=== PATIENT | female | born 1955 | race American Indian/Alaskan Native ===

== ENCOUNTER 2020-01-06 14:54 | Emergency (ER) | payer MEDICARE ==
[2020-01-06 17:06] VITALS: BP 134/72
--- NOTE | 2020-01-06 17:10 | Emergency Department Report ---
Chief Complaint: Neck Pain/Injury Stated Complaint: NECK PAIN Time Seen by Provider: 01/06/20 16:28 - HPI History of Present Illness: 64-year-old -Danish female presents to the emergency room complaining of neck pain that radiates down her back into her legs. Patient states is been going on for several months and has been seen by her doctor. Patient states that she is taking Percocet from her doctor which is at [place]. She reports that the pain is not resolving with just a Percocet. Patient reports that she is waiting on her MRI that is pending scheduling. Patient denies any recent trauma. She denies any blurred vision blacking out. - Exam Vital Signs: Vital Signs 01/06/20 17:05 Temperature 98.6 F Pulse Rate 63 Respiratory 18 Rate Blood Pressure 134/72 [134/72] O2 Sat by Pulse 99 Oximetry Physical Exam: Alert and oriented x3 no acute distress nontoxic in appearance Neck full range of motion cervical tenderness and bilateral trapeze tenderness. Patient is ambulatory without difficulties nonlabored breathing she does use a cane which is chronic for her. MSE screening note: Focused history and physical exam performed. Due to findings the following was ordered: 64-year-old -Danish female presents to the emergency room complaining of neck pain that radiates down her back into her legs. Patient states is been going on for several months and has been seen by her doctor. Patient states that she is taking Percocet from her doctor which is at [place]. She reports that the pain is not resolving with just a Percocet. Patient reports that she is waiting on her MRI that is pending scheduling. Patient denies any recent trauma. She denies any blurred vision blacking out. ED Disposition for MSE Disposition: Z-07 MED SCREENING EXAM-LEFT Is pt being admited?: No Does the pt Need Aspirin: No Condition: Stable Additional Instructions: I recommend taking ibuprofen 2 hours after your Percocet you can take 600 mg every 6-8 hours. I also recommend [id number] Aspercreme or Voltaren gel. Both of these medications are [id number] just asked the pharmacist to help you locate them. Call your primary care doctor in the morning to let them know you are still waiting for your MRI. 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 Referrals: [facility] [Outside] - 3-5 Days
== END 2020-01-06 17:17 | disposition left against medical advice (07) ==
LOC: ED 14:54
DX: M54.2 Cervicalgia (principal); Z53.21 Procedure and treatment not carried out due to patient leaving prior to being seen by health care provider

== ENCOUNTER 2020-08-13 01:37 | Emergency (ER) | payer MEDICARE ==
[2020-08-13] MEDS ORDERED: DEXTROSE 50% IN WATER (25GM) 50 ML SYRINGE IV ONE ×2 (01:46→01:48)
[2020-08-13 01:57] LABS: Basophils # (Auto) 0.1 K/mm3 (0.0-0.1); Eosinophils # (Auto) 0.1 K/mm3 (0.0-0.4); Eosinophils % (Auto) 1.9 % (0.0-4.3); Hematocrit 35.4 % (30.3-42.9); Hemoglobin 11.8 gm/dl (10.1-14.3); Lymphocytes # (Auto) 2.2 K/mm3 (1.2-5.4); Lymphocytes % (Auto) 36.7 % (13.4-35.0); Mean Corpuscular HGB Conc 33 % (30-34); Mean Corpuscular Volume 71 fl (79-97); Monocytes # (Auto) 0.4 K/mm3 (0.0-0.8); Monocytes % (Auto) 6.3 % (0.0-7.3); Platelet Count 319 K/mm3 (140-440); Red Blood Count 5.02 M/mm3 (3.65-5.03); Red Cell Distribution Width 13.9 % (13.2-15.2)
--- NOTE | 2020-08-13 01:59 | Consultation ---
Medications and Allergies Active Meds: Active Medications Dextrose (Dextrose 50% In Water (25gm) 50 Ml Vial) 50 gm IV ONCE ONE; Protocol Stop: 08/13/20 01:47 Assessment and Plan [facility] Consult Note # Demographics Consult Type: Acute Stroke Level 1 (0-4.5 hrs) Patient Location: Emergency Room First Name: Ekaterina Last Name: Bob Date of : 1955 Age: 64 Gender: Female Time of Initial Page (): 08/13/2020, 01:48 Time of Return Call ( Time): 08/13/2020, 01:49 # HPI History: 64F with stuttering speech, private vehicle. Patient unable to provide history. Patient reports some headache. The patient's mother came in earlier today in cardiac arrest and , patient aware her mother is ill. Unable to determine last well time from patient. Per ED MD, family reports patient had onset of symptoms at that time, which was 01:15. # Scores Time of exam and NIHSS (): 08/13/2020, 01:52 Level of Consciousness 1a: [0] = Alert; keenly responsive LOC Questions 1b: [2] = Answers neither correctly LOC Commands 1c: [0] = Performs both tasks correctly Best Gaze 2: [0] = Normal Visual 3: [0] = No visual loss Facial Palsy 4: [0] = Normal symmetrical movements Motor Arm Left 5a: [0] = No drift Motor Arm Right 5b: [0] = No drift Motor Leg Left 6a: [0] = No drift Motor Leg Right 6b: [0] = No drift Limb Ataxia 7: [0] = Absent Sensory 8: [0] = Normal Best Language 9: [0] = No aphasia Dysarthria 10: [0] = Normal Extinction and Inattention 11: [0] = No abnormality NIHSS Total: 2 # Exam Additional Neurologic Exam: Examination difficult due to stuttering, hesitating speech. # Data Time Head CT personally read by me (): 08/13/2020, 01:[address]: no bleed preliminarily reviewed by me, please refer to radiology read for official reading # Assessment Impression: Altered Mental Status The patient's examination is atypical for stroke, more typical of a psychiatric presentation which may have been provoked by her mother's sudden illness. With available data, risk > benefit for IV tPA as best I can determine. # Plan Thrombolytic/Intervention: NOT IV Thrombolytic or IA Intervention Thrombolytic Exclusion: risk > benefit Intraarterial Exclusion: pending CTA head/neck. Imaging: (urgency: STAT): CT Angiogram Head and CT Angiogram Neck Other: I have discussed my recommendations with the referring provider Additional Recommendations: If not improving, consider MRI brain. Disposition: observation # Logistics Telemedicine: Interactive 2 way audio and visual telecommunication technology was utilized during this visit
[2020-08-13 02:10] LABS: INR 0.82 (0.87-1.13)
[2020-08-13 02:11] LABS: Partial Thromboplastin Time 23.6 Sec. (24.2-36.6)
--- NOTE | 2020-08-13 02:14 | Cat Scan Report ---
CT HEAD WITHOUT CONTRAST INDICATION / CLINICAL INFORMATION: Stroke symptoms. TECHNIQUE: All CT scans at this location are performed using CT dose reduction for ALARA by means of automated e xposure control. COMPARISON: None available. FINDINGS: There is no acute intracranial hemorrhage. Ventricles are normal in size without midline shift or mas s effect. No extra-axial fluid collection is seen. Visualized sella appears normal. Orbits appear nor mal. ADDITIONAL FINDINGS: None. IMPRESSION: 1. No acute intracranial abnormality. Calcified vessels are seen posteriorly at junction and cerebell um brainstem CODE STROKE: Time of Communication (MANAGER ECONOMIC/CDT): 107 Licensed Practitioner Receiving Report: Dr Bland Signer Name: Mulugeta Roibn MD Signed: 08/13/2020 2:10 AM Workstation Name: [id number]
[2020-08-13 02:20] LABS: Creatine Kinase MB 2.2 ng/mL (0.0-4.0)
--- NOTE | 2020-08-13 02:29 | XRay Report ---
CHEST 1 VIEW 08/13/2020 1:22 AM INDICATION / CLINICAL INFORMATION: cva. COMPARISON: None available. FINDINGS: SUPPORT DEVICES: None. HEART / MEDIASTINUM: No significant abnormality. LUNGS / PLEURA: No significant pulmonary or pleural abnormality. No pneumothorax. ADDITIONAL FINDINGS: No significant additional findings. IMPRESSION: 1. No acute findings. Signer Name: Mulugeta Robin MD Signed: 08/13/2020 2:25 AM Workstation Name: [id number]
[2020-08-13 03:19] LABS: Blood Urea Nitrogen 7 mg/dL (7-17)
[2020-08-13 03:47] LABS: Blood Urea Nitrogen 7 mg/dL (7-17); Calcium 9.7 mg/dL (8.4-10.2); Hemolysis Index 2
[2020-08-13 03:57] LABS: BUN/Creatinine Ratio 14
--- NOTE | 2020-08-13 04:25 | Cat Scan Report ---
CTA NECK WITH CONTRAST HISTORY: "Stroke like symptoms" COMPARISON: None. TECHNIQUE: Routine CTA of the neck was performed. 3-D/MIP reformats were postprocessed. Percentage s tenosis is determined by direct quantitative measurements of diseased internal carotid artery diamete r compared with normal distal internal carotid artery reference segments or by criteria similar to NA SCET where applicable.All CT scans at this location are performed using CT dose reduction for ALARA b y means of automated exposure control CONTRAST: 100 ml of Omnipaque 350 FINDINGS: Aortic arch: No significant abnormality. Cervical vertebral arteries: No significant abnormality. Common carotid arteries: No significant abnormality. Carotid bifurcations: Normal bilaterally Cervical internal carotid arteries: No significant abnormality. Additional findings: None. IMPRESSION: 1. No significant abnormality. Signer Name: Cee Arrington MD Signed: 08/13/2020 4:21 AM Workstation Name: [id number]
--- NOTE | 2020-08-13 04:26 | Emergency Department Report ---
ED Neuro Deficit HPI - General Stated Complaint: POSSIBLE STROKE/DIABETIC Time Seen by Provider: 08/13/20 01:39 Source: patient, family - History of Present Illness Initial Comments: Patient presents to ER with slurred speech about 45 mns ago after mother went into cardiac arrest. Mother has since and family doesn't want patient to know. Patient c/o slurred speech, no focal weakness. No chest pain and sob, code S was called upon presentation to ER and Neurologist evaluated patient via TeleHealth. Time of exam and NIHSS (Eastern Time): 08/13/2020, 01:52 Level of Consciousness 1a: [0] = Alert; keenly responsive LOC Questions 1b: [2] = Answers neither correctly LOC Commands 1c: [0] = Performs both tasks correctly Best Gaze 2: [0] = Normal Visual 3: [0] = No visual loss Facial Palsy 4: [0] = Normal symmetrical movements Motor Arm Left 5a: [0] = No drift Motor Arm Right 5b: [0] = No drift Motor Leg Left 6a: [0] = No drift Motor Leg Right 6b: [0] = No drift Limb Ataxia 7: [0] = Absent Sensory 8: [0] = Normal Best Language 9: [0] = No aphasia Dysarthria 10: [0] = Normal Extinction and Inattention 11: [0] = No abnormality NIHSS Total: 2 -: Gradual - Related Data Allergies/Adverse Reactions: Allergies Allergy/AdvReac Type Severity Reaction Status Date / Time Unable to Assess Allergy Unverified 08/13/20 03:10 ED Review of Systems ROS: Stated complaint: POSSIBLE STROKE/DIABETIC Other details as noted in HPI Comment: All other systems reviewed and negative Constitutional: denies: chills, fever Eyes: denies: eye pain, eye discharge, vision change ENT: denies: throat pain Respiratory: denies: no symptoms reported Cardiovascular: denies: chest pain, palpitations Endocrine: no symptoms reported Gastrointestinal: denies: abdominal pain, nausea, diarrhea Genitourinary: denies: urgency, dysuria, discharge Musculoskeletal: denies: back pain, joint swelling, arthralgia Skin: denies: rash, lesions Neurological: weakness. denies: headache, paresthesias Psychiatric: anxiety. denies: depression Hematological/Lymphatic: denies: easy bleeding, easy bruising ED Past Medical Hx - Family History Family history: hypertension ED Neuro Physical Exam - General General appearance: alert, in no apparent distress Suspected Stroke: Yes - Head Head exam: Present: atraumatic, normocephalic - Eye Eye exam: Present: normal appearance - ENT ENT exam: Present: mucous membranes moist - Neck Neck exam: Present: normal inspection - Respiratory Respiratory exam: Present: normal lung sounds bilaterally. Absent: respiratory distress - Cardiovascular Cardiovascular Exam: Present: regular rate, normal rhythm. Absent: systolic murmur, diastolic murmur, rubs, gallop - GI/Abdominal GI/Abdominal exam: Present: soft, normal bowel sounds - Extremities Exam Extremities exam: Present: normal inspection - Back Exam Back exam: Present: normal inspection - Neurological Exam Neurological exam: Present: alert, oriented X3 - NIHSS Assessment Interval: Baseline 1a. Level of Consciousness: alert/keenly responsive 1b. LOC Questions: answers no questions correctly 1c. LOC Commands: performs tasks correctly 2. Best Gaze: normal 3. Visual: no visual loss 4. Facial Palsy: normal symmetrical movement 5b. Motor Arm Right: no drift 5a. Motor Arm Left: no drift 6a. Motor Leg Left: no drift 6b. Motor Leg Right: no drift 7. Limb Ataxia: absent 8. Sensory: normal 9. Best Language: no aphasia 10. Dysarthria: normal 11. Extinction/Inattention: no abnormality Total Score: 2 Stroke Severity: Minor Stroke - Psychiatric Psychiatric exam: Present: normal affect, normal mood - Skin Skin exam: Present: warm, dry, intact, normal color. Absent: rash - Lab Data Result diagrams: 08/13/20 01:45 08/13/20 01:45 Lab Results 08/13/20 08/13/20 08/13/20 Range/Units 01:45 01:45 01:45 WBC 5.9 (4.5-11.0) K/mm3 RBC 5.02 (3.65-5.03) M/mm3 Hgb 11.8 (10.1-14.3) gm/dl Hct 35.4 (30.3-42.9) % MCV 71 L (79-97) fl MCH 24 L (28-32) pg MCHC 33 (30-34) % RDW 13.9 (13.2-15.2) % Plt Count 319 (140-440) K/mm3 Lymph % (Auto) 36.7 H (13.4-35.0) % Moore % (Auto) 6.3 (0.0-7.3) % Eos % (Auto) 1.9 (0.0-4.3) % Baso % (Auto) 1.0 (0.0-1.8) % Lymph # (Auto) 2.2 (1.2-5.4) K/mm3 Moore # (Auto) 0.4 (0.0-0.8) K/mm3 Eos # (Auto) 0.1 (0.0-0.4) K/mm3 Baso # (Auto) 0.1 (0.0-0.1) K/mm3 Seg Neutrophils % 54.1 (40.0-70.0) % Seg Neutrophils # 3.2 (1.8-7.7) K/mm3 PT 11.8 L (12.2-14.9) Sec. INR 0.82 L (0.87-1.13) APTT 23.6 L (24.2-36.6) Sec. Thrombin Time 19.0 (15.1-19.6) Sec. Sodium (137-145) mmol/L Potassium (3.6-5.0) mmol/L Chloride (98-107) mmol/L Carbon Dioxide (22-30) mmol/L Anion Gap mmol/L BUN (7-17) mg/dL Creatinine (0.6-1.2) mg/dL Estimated GFR ml/min BUN/Creatinine Ratio % Glucose (65-100) mg/dL Calcium (8.4-10.2) mg/dL Total Creatine Kinase 137 H (30-135) units/L CK-MB (CK-2) 2.2 (0.0-4.0) ng/mL CK-MB (CK-2) Rel Index 1.6 (0-4) Troponin T < 0.010 (0.00-0.029) ng/mL Plasma/Serum Alcohol (0-0.07) % 08/13/20 08/13/20 08/13/20 Range/Units 01:45 01:45 01:45 WBC (4.5-11.0) K/mm3 RBC (3.65-5.03) M/mm3 Hgb (10.1-14.3) gm/dl Hct (30.3-42.9) % MCV (79-97) fl MCH (28-32) pg MCHC (30-34) % RDW (13.2-15.2) % Plt Count (140-440) K/mm3 Lymph % (Auto) (13.4-35.0) % Moore % (Auto) (0.0-7.3) % Eos % (Auto) (0.0-4.3) % Baso % (Auto) (0.0-1.8) % Lymph # (Auto) (1.2-5.4) K/mm3 Moore # (Auto) (0.0-0.8) K/mm3 Eos # (Auto) (0.0-0.4) K/mm3 Baso # (Auto) (0.0-0.1) K/mm3 Seg Neutrophils % (40.0-70.0) % Seg Neutrophils # (1.8-7.7) K/mm3 PT (12.2-14.9) Sec. INR (0.87-1.13) APTT (24.2-36.6) Sec. Thrombin Time (15.1-19.6) Sec. Sodium 136 L (137-145) mmol/L Potassium 3.7 (3.6-5.0) mmol/L Chloride 97.7 L (98-107) mmol/L Carbon Dioxide 24 (22-30) mmol/L Anion Gap 18 mmol/L BUN 7 7 (7-17) mg/dL Creatinine 0.5 L 0.5 L (0.6-1.2) mg/dL Estimated GFR > 60 > 60 ml/min BUN/Creatinine Ratio 14 % Glucose 268 H (65-100) mg/dL Calcium 9.7 (8.4-10.2) mg/dL Total Creatine Kinase (30-135) units/L CK-MB (CK-2) (0.0-4.0) ng/mL CK-MB (CK-2) Rel Index (0-4) Troponin T (0.00-0.029) ng/mL Plasma/Serum Alcohol < 0.01 (0-0.07) % - Medical Decision Making back to baseline, wants to go home, I recommended admission but patient refused, states she feels fine wants to go home. states episodes were due to mother's illness. Critical care attestation.: If time is entered above; I have spent that time in minutes in the direct care of this critically ill patient, excluding procedure time. ED Disposition Clinical Impression: Stress and adjustment reaction Disposition: DC-01 TO HOME OR SELFCARE Is pt being admited?: No Does the pt Need Aspirin: No Condition: Stable Instructions: Adjustment Disorder, Adult Referrals: RACHEAL IVY MD [Primary Care Provider] - 3-5 Days
--- NOTE | 2020-08-13 04:33 | Cat Scan Report ---
CTA HEAD WITH CONTRAST HISTORY: Slurred speech COMPARISON: None. TECHNIQUE: Routine non-contrast CT Head, CTA of the head and post-contrast CT Head are performed. 3-D /MIP reformats postprocessed. All CT scans at this location are performed using CT dose reduction for ALARA by means of automated exposure control CONTRAST: 100 ml of Omnipaque 350 FINDINGS: CTA Head: Intracranial vertebral arteries: No significant abnormality. Basilar artery: No significant abnormality. Posterior cerebral arteries: No significant abnormality. Intracranial internal carotid arteries: No significant abnormality. Anterior cerebral arteries: No significant abnormality. Middle cerebral arteries: No significant abnormality. Dural venous sinuses:Not optimally opacified. No significant abnormality. Additional findings: Small subcentimeter nodular area seen in both parotid glands probably intraparot id lymph nodes IMPRESSION: 1. No significant abnormality. Signer Name: Cee Arrington MD Signed: 08/13/2020 4:28 AM Workstation Name: [id number]
[2020-08-13] MEDS ORDERED: ASPIRIN 325 MG TAB PO SCH (10:00)
== END 2020-08-13 04:59 | disposition home or self-care (01) ==
LOC: ED 01:37
DX: F43.20 Adjustment disorder, unspecified (principal)
CPT/HCPCS: 36415; 70450; 70496; 70498; 71045; 80048; 82550; 82553; 82565; 84484; 84520; 85025; 85610; 85670; 85730; 99284; Q9967; 80320; G0480

== ENCOUNTER 2020-11-25 13:11 | Inpatient (IN) | payer MEDICARE ==
[2020-11-25] MEDS ORDERED: ASPIRIN 325 MG TAB PO ONE (13:54)
[2020-11-25] MEDS ORDERED: SODIUM CHLORIDE 0.9% 1000 ML 1,000 ML IV ONE (13:54)
--- NOTE | 2020-11-25 13:55 | Emergency Department Report ---
ED Chest Pain HPI - General Chief Complaint: Chest Pain Stated Complaint: CHEST PAIN Time Seen by Provider: 11/25/20 13:43 Source: patient Mode of arrival: Ambulatory Limitations: No Limitations - History of Present Illness Initial Comments: 65-year-old female with a past medical history of rheumatoid arthritis, hypertension, hyperlipidemia, diabetes and fibromyalgia with complaints of left- sided chest pain. Patient states her symptoms started 3 to 4 days ago. She describes a sharp intermittent pain which starts in her left side of her chest and radiates into her substernal area. She states that the pain was tolerable over the past 3 to 4 days, but today while she was walking at [facility] it got worse. She denies any associated shortness of breath, diaphoresis, nausea or vomiting. She denies pleuritic pain. She states that she had a chronic cough for several years, and it has not gotten worse recently. She has chronic lower extremity swelling secondary to her rheumatoid arthritis, but denies any worsening swelling recently or any calf pain. She denies any fever, chills or URI symptoms. Patient states that she has never had a stress test in the past. She has never had a heart cath. Patient admits that she recently lost her mom about 3 months ago secondary to an NE and she has been under lots of stress and anxiety since. She also reports that her brother who is 55 has had multiple heart attacks in the past. She denies any history of PE or DVT. She denies history of tobacco use or any illicit drug use. She denies any apparent ill contacts. MD Complaint: chest pain -: Gradual, days(s) (3-4) - Related Data Home Medications Medication Instructions Recorded Confirmed Last Taken HumaLOG 70 units SQ DAILY 11/25/20 11/25/20 Unknown Lisinopril [Zestril TAB] 20 mg PO DAILY 11/25/20 11/25/20 11/24/20 19:00 Allergies Allergy/AdvReac Type Severity Reaction Status Date / Time No Known Allergies Allergy Verified 11/25/20 13:39 Heart Score - HEART Score History: Moderately suspicious EKG: Normal Age: 45-65 Risk factors: > 3 risk factors or hx of atherosclerotic disease Troponin: < normal limit HEART Score: 4 - EKG Read Time Time EKG Completed: 13:19 EKG Read Time: 13:20 ED Review of Systems ROS: Stated complaint: CHEST PAIN Other details as noted in HPI Comment: All other systems reviewed and negative Constitutional: denies: chills, fever Respiratory: cough (Chronic). denies: shortness of breath, SOB with exertion, SOB at rest, wheezing Cardiovascular: chest pain. denies: dyspnea on exertion, paroxysmal nocturnal dyspnea Gastrointestinal: denies: abdominal pain, nausea, vomiting, diarrhea, constipation, hematemesis, melena, hematochezia Genitourinary: denies: urgency, dysuria, discharge Musculoskeletal: denies: back pain, joint swelling, arthralgia Skin: denies: rash, lesions, change in color, change in hair/nails, pruritus Neurological: denies: headache, weakness, numbness, paresthesias, confusion Psychiatric: denies: anxiety, depression, auditory hallucinations, visual hallucinations, homicidal thoughts, suicidal thoughts Hematological/Lymphatic: denies: easy bruising, swollen glands ED Past Medical Hx - Past Medical History Previous Medical History?: No Hx Hypertension: Yes Hx Diabetes: Yes - Surgical History Past Surgical History?: No - Medications Home Medications: Home Medications Medication Instructions Recorded Confirmed Last Taken Type HumaLOG 70 units SQ DAILY 11/25/20 11/25/20 Unknown History Lisinopril [Zestril TAB] 20 mg PO DAILY 11/25/20 11/25/20 11/24/20 19:00 History ED Physical Exam - General Limitations: No Limitations General appearance: alert, anxious - Eye Eye exam: Present: normal appearance, PERRL, EOMI Pupils: Present: normal accommodation - Neck Neck exam: Present: normal inspection, full ROM. Absent: meningismus - Respiratory Respiratory exam: Present: normal lung sounds bilaterally. Absent: respiratory distress, wheezes, rales, rhonchi, chest wall tenderness - Cardiovascular Cardiovascular Exam: Present: regular rate, normal rhythm, normal heart sounds - GI/Abdominal GI/Abdominal exam: Present: soft. Absent: distended, tenderness, guarding, rebound - Extremities Exam Extremities exam: Present: normal inspection, full ROM. Absent: normal capillary refill, pedal edema, calf tenderness - Neurological Exam Neurological exam: Present: alert, oriented X3, CN II-XII intact, normal gait - Psychiatric Psychiatric exam: Present: normal affect, normal mood - Skin Skin exam: Present: intact ED Course Vital Signs 11/25/20 11/25/20 11/25/20 13:40 14:26 14:30 Temperature 100.7 F H Pulse Rate 86 90 96 H Respiratory 16 Rate Blood Pressure 147/78 Blood Pressure 126/86 [Left] O2 Sat by Pulse 96 85 97 Oximetry 11/25/20 11/25/20 11/25/20 14:46 15:00 15:16 Temperature Pulse Rate 83 86 89 Respiratory Rate Blood Pressure 147/78 151/81 151/81 Blood Pressure [Left] O2 Sat by Pulse 99 100 97 Oximetry 11/25/20 11/25/20 11/25/20 15:30 15:46 16:00 Temperature Pulse Rate 85 92 H Respiratory Rate Blood Pressure 151/77 151/77 158/86 Blood Pressure [Left] O2 Sat by Pulse 88 84 Oximetry 11/25/20 11/25/20 11/25/20 16:16 16:26 16:29 Temperature 101.9 F H 100.2 F H Pulse Rate 102 H 85 86 Respiratory 16 16 Rate Blood Pressure 158/86 157/77 Blood Pressure 157/77 [Left] O2 Sat by Pulse 86 92 Oximetry 11/25/20 16:30 Temperature Pulse Rate 80 Respiratory Rate Blood Pressure 157/77 Blood Pressure [Left] O2 Sat by Pulse 93 Oximetry ED Medical Decision Making - Lab Data Result diagrams: 11/25/20 14:42 11/25/20 14:42 - EKG Data EKG shows normal: sinus rhythm Rate: normal (94) - EKG Data Interpretation: normal EKG - Radiology Data Radiology results: report reviewed Patient: LUIS CARLOS LOREDO MR#: [id number] : 1955 Acct:[id number] Age/Sex: 65 / F ADM Date: 11/25/20 Loc: ED Attending Dr: Ordering Physician: KB BARTH Date of Service: 11/25/20 Procedure(s): XR chest routine 2V Accession Number(s): [id number] cc: KB BARTH Fluoro Time In Minutes: CHEST 2 VIEWS INDICATION: Chest Pain. COMPARISON: 08/13/2020 FINDINGS: Support devices: None. Heart: Within normal limits. Lungs/pleura: No acute air space or interstitial disease. No pneumothorax. Additional findings: None. IMPRESSION: No acute findings. Signer Name: Taj Bell Jr, MD Signed: 11/25/2020 2:15 PM Workstation Name: [id number] Transcribed By: TTR Dictated By: TAJ BELL JR, MD Electronically Authenticated By: TAJ BELL JR, MD Signed Date/Time: 11/25/201414 DD/ 13 TD/TT: - Medical Decision Making 1624: Patient currently laying in the bed, and she states that she still having intermittent chest pain. She is not currently in any distress. All her labs were reviewed, initial troponin was negative, EKG shows normal sinus rhythm with a heart rate of 94, without any acute ischemic changes/STEMI or significant dysrhythmia. Chest x-ray shows nothing acute. Patient vital signs shows that she is febrile, and oxygen on room air at rest now is in the low 90s. Tylenol p.o. was ordered for the patient. Patient reports a chronic cough for several years, nothing worse and she has not had any wheezing or shortness of breath. Patient could have Covid, but given her risk factors for heart disease and she has never had a stress test, patient will likely need admission. Discussed case with Dr. Alexis who also evaluated the patient, and given patient risk factors including family history factors and symptomology, I agree that patient will need to be admitted for further cardiac work-up. Case discussed with Dr. Currie for admission. 1745: Discussed case with student consulting systems engineer, Dr Echeverria, he will consult on patient. Critical care attestation.: If time is entered above; I have spent that time in minutes in the direct care of this critically ill patient, excluding procedure time. ED Disposition Clinical Impression: Chest pain Disposition: 04 [facility] Is pt being admited?: Yes Does the pt Need Aspirin: Yes Condition: Stable Instructions: Nonspecific Chest Pain, Adult Referrals: PRIMARY CARE, [Primary Care Provider] - 3-5 Days
[2020-11-25] MEDS ORDERED: ONDANSETRON 4 MG/2 ML INJ IV ONE (13:57)
[2020-11-25] MEDS ORDERED: MORPHINE 2 MG/1 ML INJ IV ONE (13:57)
--- NOTE | 2020-11-25 14:20 | XRay Report ---
CHEST 2 VIEWS INDICATION: Chest Pain. COMPARISON: 08/13/2020 FINDINGS: Support devices: None. Heart: Within normal limits. Lungs/pleura: No acute air space or interstitial disease. No pneumothorax. Additional findings: None. IMPRESSION: No acute findings. Signer Name: Taj Bell Jr, MD Signed: 11/25/2020 2:15 PM Workstation Name: [id number]
[2020-11-25 14:57] LABS: Basophils % (Auto) 0.7 % (0.0-1.8); Eosinophils % (Auto) 0.1 % (0.0-4.3); Hematocrit 32.3 % (30.3-42.9); Hemoglobin 10.7 gm/dl (10.1-14.3); Lymphocytes # (Auto) 1.1 K/mm3 (1.2-5.4); Lymphocytes % (Auto) 28.1 % (13.4-35.0); Mean Corpuscular HGB Conc 33 % (30-34); Mean Corpuscular Volume 70 fl (79-97); Monocytes # (Auto) 0.4 K/mm3 (0.0-0.8); Monocytes % (Auto) 9.7 % (0.0-7.3); Platelet Count 222 K/mm3 (140-440); Red Blood Count 4.61 M/mm3 (3.65-5.03); Red Cell Distribution Width 13.6 % (13.2-15.2)
[2020-11-25 15:25] LABS: Alanine Aminotransferase 10 units/L (7-56); Albumin 3.9 g/dL (3.9-5); Blood Urea Nitrogen 12 mg/dL (7-17); Calcium 8.9 mg/dL (8.4-10.2); Hemolysis Index 0
[2020-11-25 15:30] LABS: BUN/Creatinine Ratio 17
--- NOTE | 2020-11-25 16:36 | History and Physical Report ---
History of Present Illness Chief complaint: My chest has been hurting History of present illness: 65 YO Female with HTN, HLD, OA, DM, RA, Fibromyalgia not currently taking DMARD presents to ED for evaluation. Patient reports "my chest has been hurting". Patient states that she has experienced chest pain over the past 2 weeks with worsening symptoms over the past 4 days. Patient acknowledges fever, fatigue, malaise, decreased exercise tolerance, diminished sense of smell, diminished sense of taste, dry cough. Patient knowledges chest discomfort which is worsened with palpation of the chest wall. Patient transported to [facility] via private vehicle for further care and evaluation of the aforementioned symptoms. The patient was seen and evaluated in the emergency department. All lab and imaging studies reviewed. Patient found to be febrile with a temperature of 101.9 F, tachycardic with a heart rate of 102. Patient found to have a pulse oximetry of 85% on room air which is consistent with acute hypoxemic respiratory failure. Patient found to have sepsis. CT scan of the chest revealed bilateral pneumonia. Patient admitted to medical floor and initiated on sepsis protocol as well as pneumonia protocol, as well as coronavirus protocol. Patient is not vaccinated against COVID-19. No prior admission for review. No medication listed at time of admission for reconciliation. Advanced care planning conducted in ED. Past History Past Medical History: arthritis, diabetes, hypertension, hyperlipidemia Past Surgical History: No surgical history, Other (Reviewed) Social history: single. denies: smoking, alcohol abuse Family history: hypertension Medications and Allergies Allergies Allergy/AdvReac Type Severity Reaction Status Date / Time No Known Allergies Allergy Verified 11/25/20 18:41 Home Medications Medication Instructions Recorded Confirmed Last Taken Type HumaLOG 70 units SQ DAILY 11/25/20 11/25/20 Unknown History Lisinopril [Zestril TAB] 20 mg PO DAILY 11/25/20 11/25/20 11/24/20 19:00 History Review of Systems Constitutional: fever, fatigue, weakness, malaise Ears, nose, mouth and throat: no ear pain, no ear discharge, no tinnitis, no decreased hearing Breasts: no change in shape, no swelling, no mass Cardiovascular: shortness of breath, dyspnea on exertion, decreased exercise tolerance Respiratory: cough, shortness of breath, no hemoptysis Gastrointestinal: no abdominal pain, no nausea, no vomiting Genitourinary Female: no pelvic pain, no flank pain, no dysuria, no urinary frequency, no urgency Rectal: no pain, no incontinence, no bleeding Musculoskeletal: no neck stiffness, no neck pain, no shooting arm pain, no low b ack pain, no shooting leg pain, no redness of joints Integumentary: no rash, no pruritis, no redness, no sores, no wounds, no boils Neurological: no transient paralysis, no paralysis, no parathesias, no numbness, no seizures, no tremors Psychiatric: no anxiety, no change in sleep habits, no insomnia, no hypersomnia, no change in appetite, no suicidal ideation Endocrine: no cold intolerance, no polyphagia, no polydipsia, no nocturia Hematologic/Lymphatic: no easy bruising, no easy bleeding Allergic/Immunologic: no urticaria, no allergic rhinitis Exam - Constitutional Vitals: Temp Pulse Resp BP Pulse Ox 101.9 F H 85 16 157/77 92 11/25/20 16:26 11/25/20 16:26 11/25/20 16:26 11/25/20 16:26 11/25/20 16:26 General appearance: Present: mild distress - EENT Eyes: Present: PERRL ENT: hearing intact, clear oral mucosa - Neck Neck: Present: supple, normal ROM - Respiratory Respiratory effort: labored, accessory muscle use Respiratory: bilateral: diminished, rhonchi - Cardiovascular Heart Sounds: Present: S1 & S2. Absent: rub, click - Extremities Extremities: pulses symmetrical, No edema Peripheral Pulses: abnormal (Capillary refill greater than 3.5 seconds) - Abdominal General gastrointestinal: Present: soft, non-tender, non-distended, normal bowel sounds Female genitourinary: Present: normal - Integumentary Integumentary: Present: clear, warm, dry - Musculoskeletal Musculoskeletal: generalized weakness - Psychiatric Psychiatric: appropriate mood/affect, intact judgment & insight - Neurologic Neurologic: CNII-XII intact, moves all extremities HEART Score - HEART Score EKG: Normal Age: 45-65 Risk factors: > 3 risk factors or hx of atherosclerotic disease Troponin: Troponin T < 0.010 ng/mL (0.00-0.029) 11/25/20 14:42 Troponin: < normal limit Results - Labs CBC & Chem 7: 11/25/20 14:42 11/25/20 14:42 Labs: Abnormal lab results 11/25/20 11/25/20 11/25/20 Range/Units 13:22 14:42 14:42 WBC 4.0 L (4.5-11.0) K/mm3 MCV 70 L (79-97) fl MCH 23 L (28-32) pg [place] % (Auto) 9.7 H (0.0-7.3) % Lymph # (Auto) 1.1 L (1.2-5.4) K/mm3 Sodium 135 L (137-145) mmol/L Chloride 96.7 L (98-107) mmol/L Glucose 191 H (65-100) mg/dL POC Glucose 232 H (70-105) mg/dL Assessment and Plan - Patient Problems (1) Sepsis Current Visit: Yes Status: Acute Plan to address problem: Sepsis protocol: Chest x-ray, CBC, urinalysis, IV antibiotic therapy, IV fluid resuscitation therapy, maintain mean arterial pressure greater than equal to 65, serial lactic acid level, blood culture. (2) Acute hypoxemic respiratory failure Current Visit: Yes Status: Acute Plan to address problem: Supplemental oxygen, pulse oximetry, chest x-ray, CT scan chest, nebulizer therapy, will consider high flow supplemental oxygen if patient is unable to maintain pulse oximetry with supplemental oxygen via nasal cannula. (3) Pneumonia Current Visit: Yes Status: Acute Plan to address problem: Pneumonia protocol: Chest x-ray, CBC, CMP, IV antibiotic therapy, supplemental oxygen, pulse oximetry, nebulizer therapy, (4) Fibromyalgia Current Visit: Yes Status: Acute Plan to address problem: IV steroid therapy, supportive care, pain control, outpatient rheumatology follow-up. (5) Rheumatoid arthritis Current Visit: Yes Status: Acute Qualifiers: Laterality: unspecified laterality Plan to address problem: Supportive care, IV steroid therapy, outpatient rheumatology follow-up. (6) Chest wall discomfort Current Visit: Yes Status: Acute Plan to address problem: Serial cardiac enzymes, EKG, remote telemetry, cardiology team consulted in ED. (7) DVT prophylaxis Current Visit: Yes Status: Acute Plan to address problem: SCD to bilateral lower extremities while in bed, prophylactic anticoagulation (8) Advance care planning Current Visit: Yes Status: Acute Plan to address problem: Disease education conducted, care plan discussed, diagnoses discussed, prognosis discussed, patient is full code, patient knowledges understanding and agreement with care plan, +30 minutes.
[2020-11-25] MEDS ORDERED: ACETAMINOPHEN 325 MG TAB PO ONE (16:38)
--- NOTE | 2020-11-25 18:13 | Cat Scan Report ---
CT angio chest INDICATION / CLINICAL INFORMATION: chest pain, fever. TECHNIQUE: Axial CT images were obtained through the chest after injection of IV contrast. 3 plane MIP and/or 3D reconstructions were produced. All CT scans at this location are performed using CT dose reduction f or ALARA by means of automated exposure control. COMPARISON: None available. FINDINGS: PULMONARY ARTERIES: Poor contrast opacification. No central pulmonary artery filling defects. The dis gladis pulmonary arteries are not well evaluated. HEART: No significant abnormality. MEDIASTINUM / RAGHU: Mild bilateral hilar lymphadenopathy, likely reactive. LUNGS: Small quantity of bilateral groundglass opacities demonstrating a peripheral subpleural predil ection. No pleural effusion. No pneumothorax. ADDITIONAL FINDINGS: None. UPPER ABDOMEN: No acute findings. SKELETAL STRUCTURES: No significant osseous abnormality. IMPRESSION: 1. Mild bilateral airspace disease with imaging features of Covid pneumonia. 2. No evidence for pulmonary embolism Signer Name: Roman Cameron MD Signed: 11/25/2020 6:08 PM Workstation Name: [id number]
[2020-11-25] MEDS ORDERED: ONDANSETRON 4 MG/2 ML INJ IV PRN (18:37)
[2020-11-25] MEDS ORDERED: HYDROmorphone 1 MG/1 ML INJ IV PRN ×2 (18:37→18:40)
[2020-11-25] MEDS ORDERED: ACETAMINOPHEN 325 MG TAB PO PRN ×3 (18:37→18:50)
[2020-11-25] MEDS ORDERED: oxyCODONE /ACETAMINOPHEN 5-325MG TAB PO PRN (18:37)
[2020-11-25] MEDS ORDERED: ALBUTEROL 2.5 MG/3 ML NEBU IH PRN (18:37)
[2020-11-25] MEDS ORDERED: SODIUM CHLORIDE 0.9% 1000 ML IV SOLN IV ONE (18:40)
[2020-11-25 18:41] LABS: Bilirubin,Urine NEG (Negative); Blood,Urine NEG (Negative); Color,Urine Straw (Yellow); Urobilinogen,Urine < 2.0 mg/dL (<2.0)
[2020-11-25] MEDS ORDERED: traMADol 50 MG TAB PO PRN (18:50)
[2020-11-25 19:27] LABS: C-Reactive Protein 1.2 mg/dL (0.00-1.30)
[2020-11-25] MEDS: AZITHROMYCIN/NS 500 MG/250 ML 500 MG/250 ML BAG IV SCH (20:05)
[2020-11-25] MEDS: cefTRIAXone/NS 2 GM/100 ML 2 GM/100 ML BAG IV SCH (20:05)
[2020-11-25] MEDS ORDERED: DEXTROSE 50% IN WATER (25GM) 50 ML SYRINGE IV PRN (20:50)
[2020-11-25] MEDS: FAMOTIDINE 10 MG TAB PO SCH (22:37)
[2020-11-25] MEDS: ZINC SULFATE 220 MG CAP PO SCH (22:37)
[2020-11-25] MEDS: methylPREDNISolone Sod Succinate 40 MG/1 ML INJ IV SCH (22:37)
[2020-11-25] MEDS: ASCORBIC ACID 500 MG TAB PO SCH (22:37)
[2020-11-25] MEDS: HEPARIN 5,000 UNIT/1 ML VIAL SUB-Q SCH (22:37)
[2020-11-25] MEDS: CHOLECALCIFEROL (VIT D3) 1000 UNIT (25 mcg) TAB PO SCH (22:38)
[2020-11-26] MEDS: INSULIN LISPRO 100 UNIT/ML SUB-Q SCH ×4 (00:04→18:06)
[2020-11-26] MEDS: methylPREDNISolone Sod Succinate 40 MG/1 ML INJ IV SCH ×3 (06:10→22:00)
[2020-11-26 06:14] LABS: Basophils % (Auto) 0.3 % (0.0-1.8); Lymphocytes # (Auto) 0.4 K/mm3 (1.2-5.4); Lymphocytes % (Auto) 11.4 % (13.4-35.0); Mean Corpuscular HGB Conc 27 % (30-34); Mean Corpuscular Volume 85 fl (79-97); Monocytes # (Auto) 0.1 K/mm3 (0.0-0.8); Monocytes % (Auto) 2.4 % (0.0-7.3); Platelet Count 213 K/mm3 (140-440); Red Blood Count 4.49 M/mm3 (3.65-5.03); Red Cell Distribution Width 14.5 % (13.2-15.2)
[2020-11-26 06:19] LABS: Hematocrit 38.1 % (30.3-42.9); Hemoglobin 10.4 gm/dl (10.1-14.3)
[2020-11-26 06:30] LABS: Blood Urea Nitrogen 10 mg/dL (7-17); Hemolysis Index 3
[2020-11-26 06:34] LABS: BUN/Creatinine Ratio 14
--- NOTE | 2020-11-26 08:25 | Progress Note ---
Assessment and Plan Assessment and plan: Sepsis. Present on admission. Patient meets criteria given the tachycardia, tachypnea, leukopenia and diagnosis of pneumonia. Acute hypoxemic respiratory failure. Bilateral pneumonia. Suspected COVID-19 pneumonia. Fibromyalgia. Rheumatoid arthritis. 11/26/2020. Patient with suspected COVID-19 pneumonia. We will follow-up Covid PCR and procalcitonin level. Continue antibiotics of ceftriaxone and azithromycin for now. Consult ID. Continue Solu-Medrol 40 mg IV every 8 hours and consider transitioning to dexamethasone. Check and trend inflammatory markers. History Interval history: No new issues overnight. Hospitalist Physical - Constitutional Vitals: Temp Pulse Resp BP Pulse Ox 98.9 F 197 H 20 118/63 99 11/25/20 21:18 11/25/20 21:30 11/25/20 21:30 11/26/20 06:01 11/26/20 06:01 General appearance: Present: no acute distress - EENT Eyes: Present: PERRL, EOM intact ENT: hearing intact, clear oral mucosa, dentition normal - Neck Neck: Present: supple, normal ROM - Respiratory Respiratory effort: normal Respiratory: bilateral: CTA - Cardiovascular Rhythm: regular Heart Sounds: Present: S1 & S2. Absent: gallop, rub - Extremities Extremities: no ischemia, No edema, Full ROM - Abdominal General gastrointestinal: soft, non-tender, non-distended, normal bowel sounds - Integumentary Integumentary: Present: clear, warm, dry - Neurologic Neurologic: CNII-XII intact, moves all extremities HEART Score - HEART Score EKG: Normal Age: 45-65 Risk factors: > 3 risk factors or hx of atherosclerotic disease Troponin: Troponin T < 0.010 ng/mL (0.00-0.029) 11/26/20 01:01 Troponin: < normal limit Results - Labs CBC & Chem 7: 11/26/20 05:29 11/26/20 05:29 Labs: Laboratory Last Values WBC 3.5 K/mm3 (4.5-11.0) L 11/26/20 05:29 RBC 4.49 M/mm3 (3.65-5.03) 11/26/20 05:29 Hgb 10.4 gm/dl (10.1-14.3) 11/26/20 05:29 Hct 38.1 % (30.3-42.9) 11/26/20 05:29 MCV 85 fl (79-97) 11/26/20 05:29 MCH 23 pg (28-32) L 11/26/20 05:29 MCHC 27 % (30-34) L 11/26/20 05:29 RDW 14.5 % (13.2-15.2) 11/26/20 05:29 Plt Count 213 K/mm3 (140-440) 11/26/20 05:29 Lymph % (Auto) 11.4 % (13.4-35.0) L 11/26/20 05:29 [place] % (Auto) 2.4 % (0.0-7.3) 11/26/20 05:29 Eos % (Auto) 0.0 % (0.0-4.3) 11/26/20 05:29 Baso % (Auto) 0.3 % (0.0-1.8) 11/26/20 05:29 Lymph # (Auto) 0.4 K/mm3 (1.2-5.4) L 11/26/20 05:29 [place] # (Auto) 0.1 K/mm3 (0.0-0.8) 11/26/20 05:29 Eos # (Auto) 0.0 K/mm3 (0.0-0.4) 11/26/20 05:29 Baso # (Auto) 0.0 K/mm3 (0.0-0.1) 11/26/20 05:29 Seg Neutrophils % 85.9 % (40.0-70.0) H 11/26/20 05:29 Seg Neutrophils # 3.0 K/mm3 (1.8-7.7) 11/26/20 05:29 D-Dimer 272.22 ng/mlDDU (0-234) H 11/25/20 17:54 Sodium 141 mmol/L (137-145) 11/26/20 05:29 Potassium 4.3 mmol/L (3.6-5.0) 11/26/20 05:29 Chloride 104.0 mmol/L (98-107) 11/26/20 05:29 Carbon Dioxide 20 mmol/L (22-30) L 11/26/20 05:29 Anion Gap 21 mmol/L 11/26/20 05:29 BUN 10 mg/dL (7-17) 11/26/20 05:29 Creatinine 0.7 mg/dL (0.6-1.2) 11/26/20 05:29 Estimated GFR > 60 ml/min 11/26/20 05:29 BUN/Creatinine Ratio 14 % 11/26/20 05:29 Glucose 287 mg/dL (65-100) H 11/26/20 05:29 POC Glucose 252 mg/dL (70-105) H 11/26/20 06:06 Lactic Acid 0.80 mmol/L (0.7-2.0) 11/26/20 01:01 Calcium 8.0 mg/dL (8.4-10.2) L 11/26/20 05:29 Total Bilirubin 0.20 mg/dL (0.1-1.2) 11/25/20 14:42 AST 18 units/L (5-40) 11/25/20 14:42 ALT 10 units/L (7-56) 11/25/20 14:42 Alkaline Phosphatase 96 units/L (35-129) 11/25/20 14:42 Lactate Dehydrogenase 368 units/L (91-180) H 11/25/20 18:59 Troponin T < 0.010 ng/mL (0.00-0.029) 11/26/20 01:01 C-Reactive Protein 1.20 mg/dL (0.00-1.30) 11/25/20 18:59 Total Protein 7.5 g/dL (6.3-8.2) 11/25/20 14:42 Albumin 3.9 g/dL (3.9-5) 11/25/20 14:42 Albumin/Globulin Ratio 1.1 % 11/25/20 14:42 Urine Color Straw (Yellow) 11/25/20 16:50 Urine Turbidity Clear (Clear) 11/25/20 16:50 Urine pH 8.0 (5.0-7.0) H 11/25/20 16:50 Ur Specific [place] 1.008 (1.003-1.030) 11/25/20 16:50 Urine Protein 30 mg/dl mg/dL (Negative) 11/25/20 16:50 Urine Glucose (UA) Neg mg/dL (Negative) 11/25/20 16:50 Urine Ketones Neg mg/dL (Negative) 11/25/20 16:50 Urine Blood Neg (Negative) 11/25/20 16:50 Urine Nitrite Neg (Negative) 11/25/20 16:50 Urine Bilirubin Neg (Negative) 11/25/20 16:50 Urine Urobilinogen < 2.0 mg/dL (<2.0) 11/25/20 16:50 Ur Leukocyte Esterase Tr (Negative) 11/25/20 16:50 Urine WBC (Auto) 22.0 /HPF (0.0-6.0) H 11/25/20 16:50 Urine RBC (Auto) 2.0 /HPF (0.0-6.0) 11/25/20 16:50 U Epithel Cells (Auto) < 1.0 /HPF (0-13.0) 11/25/20 16:50 Blood Type O POSITIVE 11/25/20 18:50 Antibody Screen Negative 11/25/20 18:50 Microbiology: Microbiology 11/25/20 18:46 Peripheral/Venous Blood Culture - Preliminary Culture in Progress 11/25/20 18:46 Peripheral/Venous Blood Culture - Preliminary Culture in Progress Active Medications - Current Medications Current Medications: Generic Name Dose Route Start Last Admin Trade Name Freq PRN Reason Stop Dose Admin Acetaminophen 650 mg 11/25/20 18:37 Acetaminophen 325 Mg Tab PO Q4H PRN Pain MILD(1-3)/Fever >100.5/PADILLA Albuterol 2.5 mg 11/25/20 18:37 Albuterol 2.5 Mg/3 Ml Nebu IH Q4HRT PRN Shortness Of Breath Ascorbic Acid 500 mg 11/25/20 22:00 11/25/20 22:37 Ascorbic Acid 500 Mg Tab PO 500 mg BID KATHRYN Administration Cholecalciferol 1,000 unit 11/25/20 21:00 11/25/20 22:38 Cholecalciferol (Vit D3) 1000 Unit (25 Mcg) Tab PO 1,000 unit QDAY KATHRYN Administration Dextrose 0 ml 11/25/20 20:50 Dextrose 50% In Water (25gm) 50 Ml Syringe IV Q30MIN PRN Hypoglycemia Protocol Famotidine 10 mg 11/25/20 22:00 11/25/20 22:37 Famotidine 10 Mg Tab PO 10 mg BID KATHRYN Administration Heparin Sodium (Porcine) 5,000 unit 11/25/20 22:00 11/25/20 22:37 Heparin 5,000 Unit/1 Ml Vial SUB-Q 5,000 unit Q12HR KATHRYN Administration Hydromorphone HCl 0.5 mg 11/25/20 18:37 Hydromorphone 1 Mg/1 Ml Inj IV Q23H PRN Pain , Severe (7-10) Hydromorphone HCl 0.25 mg 11/25/20 18:40 Hydromorphone 1 Mg/1 Ml Inj IV Q4H PRN Pain, Moderate (4-6) Ceftriaxone Sodium 2 gm in 100 mls @ 200 mls/hr 11/25/20 19:00 11/25/20 20:05 Rocephin/Ns 2 Gm/100 Ml IV 200 mls/hr Q24H [facility] Administration Protocol Azithromycin 500 mg in 250 mls @ 250 mls/hr 11/25/20 19:00 11/25/20 20:05 Zithromax/Ns IV 250 mls/hr Q24H [facility] Administration Protocol Insulin Human Lispro 0 unit 11/26/20 00:00 11/26/20 06:08 Insulin Lispro 100 Unit/Ml SUB-Q 8 unit Q6HR [facility] Administration Protocol Lisinopril 20 mg 11/26/20 10:00 Lisinopril 10 Mg Tab PO DAILY [facility] Methylprednisolone Sodium Succinate 40 mg 11/25/20 22:00 11/26/20 06:10 Methylprednisolone Sod Succinate 40 Mg/1 Ml Inj IV 40 mg Q8HR KATHRYN Administration Ondansetron HCl 4 mg 11/25/20 18:37 Ondansetron 4 Mg/2 Ml Inj IV Q8H PRN Nausea And Vomiting Oxycodone/Acetaminophen 1 tab 11/25/20 18:37 Oxycodone /Acetaminophen 5-325mg Tab PO Q16H PRN Pain, Moderate (4-6) Sodium Chloride 10 ml 11/25/20 22:00 11/25/20 22:37 Sodium Chloride 0.9% 10 Ml Flush Syringe IV 10 ml BID KATHRYN Administration Sodium Chloride 10 ml 11/25/20 18:37 Sodium Chloride 0.9% 10 Ml Flush Syringe IV PRN PRN LINE FLUSH Sodium Chloride 10 ml 11/25/20 18:50 Sodium Chloride 0.9% 10 Ml Flush Syringe IV PRN PRN LINE FLUSH Tramadol HCl 50 mg 11/25/20 18:50 Tramadol 50 Mg Tab PO Q6H PRN Pain, Moderate (4-6) Zinc Sulfate 220 mg 11/25/20 22:00 11/25/20 22:37 Zinc Sulfate 220 Mg Cap PO 220 mg BID KATHRYN Administration
[2020-11-26 08:48] LABS: C-Reactive Protein 1.9 mg/dL (0.00-1.30)
[2020-11-26] MEDS: FAMOTIDINE 10 MG TAB PO SCH ×2 (10:18→22:00)
[2020-11-26] MEDS: LISINOPRIL 10 MG TAB PO SCH (10:18)
[2020-11-26] MEDS: CHOLECALCIFEROL (VIT D3) 1000 UNIT (25 mcg) TAB PO SCH (10:19)
[2020-11-26] MEDS: HEPARIN 5,000 UNIT/1 ML VIAL SUB-Q SCH ×2 (10:19→22:00)
[2020-11-26] MEDS: ZINC SULFATE 220 MG CAP PO SCH ×2 (10:19→22:00)
[2020-11-26] MEDS: ASCORBIC ACID 500 MG TAB PO SCH ×2 (10:19→22:00)
[2020-11-26] MEDS: cefTRIAXone/NS 2 GM/100 ML 2 GM/100 ML BAG IV SCH (18:55)
[2020-11-26] MEDS: AZITHROMYCIN/NS 500 MG/250 ML 500 MG/250 ML BAG IV SCH (20:04)
[2020-11-27] MEDS: methylPREDNISolone Sod Succinate 40 MG/1 ML INJ IV SCH ×3 (06:28→22:29)
[2020-11-27] MEDS: INSULIN LISPRO 100 UNIT/ML SUB-Q SCH ×5 (06:29→23:42)
--- NOTE | 2020-11-27 09:15 | Progress Note ---
Assessment and Plan Assessment and plan: Sepsis. Present on admission. Patient meets criteria given the tachycardia, tachypnea, leukopenia and diagnosis of pneumonia. Acute hypoxemic respiratory failure. Bilateral pneumonia. COVID-19 pneumonia. Fibromyalgia. Rheumatoid arthritis. 11/26/2020. Patient with suspected COVID-19 pneumonia. We will follow-up Covid PCR and procalcitonin level. Continue antibiotics of ceftriaxone and azithr omycin for now. Consult ID. Continue Solu-Medrol 40 mg IV every 8 hours and consider transitioning to dexamethasone. Check and trend inflammatory markers. 11/27/2020. Covid PCR positive on 11/26. Follow-up procalcitonin level. Continue IV antibiotics and IV steroid. ID consultation pending. Continue to trend inflammatory markers. History Interval history: No new issues overnight. Hospitalist Physical - Constitutional Vitals: Temp Pulse Resp BP Pulse Ox 98.9 F 69 16 124/73 97 11/25/20 21:18 11/26/20 10:30 11/26/20 10:30 11/27/20 07:31 11/27/20 07:31 General appearance: Present: no acute distress - EENT Eyes: Present: PERRL, EOM intact ENT: hearing intact, clear oral mucosa, dentition normal - Neck Neck: Present: supple, normal ROM - Respiratory Respiratory effort: normal Respiratory: bilateral: CTA - Cardiovascular Rhythm: regular Heart Sounds: Present: S1 & S2. Absent: gallop, rub - Extremities Extremities: no ischemia, No edema, Full ROM - Abdominal General gastrointestinal: soft, non-tender, non-distended, normal bowel sounds - Integumentary Integumentary: Present: clear, warm, dry - Neurologic Neurologic: CNII-XII intact, moves all extremities HEART Score - HEART Score EKG: Normal Age: 45-65 Risk factors: > 3 risk factors or hx of atherosclerotic disease Troponin: Troponin T < 0.010 ng/mL (0.00-0.029) 11/26/20 01:01 Troponin: < normal limit Results - Labs CBC & Chem 7: 11/26/20 05:29 11/26/20 05:29 Labs: Laboratory Last Values WBC 3.5 K/mm3 (4.5-11.0) L 11/26/20 05:29 RBC 4.49 M/mm3 (3.65-5.03) 11/26/20 05:29 Hgb 10.4 gm/dl (10.1-14.3) 11/26/20 05:29 Hct 38.1 % (30.3-42.9) 11/26/20 05:29 MCV 85 fl (79-97) 11/26/20 05:29 MCH 23 pg (28-32) L 11/26/20 05:29 MCHC 27 % (30-34) L 11/26/20 05:29 RDW 14.5 % (13.2-15.2) 11/26/20 05:29 Plt Count 213 K/mm3 (140-440) 11/26/20 05:29 Lymph % (Auto) 11.4 % (13.4-35.0) L 11/26/20 05:29 [place] % (Auto) 2.4 % (0.0-7.3) 11/26/20 05:29 Eos % (Auto) 0.0 % (0.0-4.3) 11/26/20 05:29 Baso % (Auto) 0.3 % (0.0-1.8) 11/26/20 05:29 Lymph # (Auto) 0.4 K/mm3 (1.2-5.4) L 11/26/20 05:29 [place] # (Auto) 0.1 K/mm3 (0.0-0.8) 11/26/20 05:29 Eos # (Auto) 0.0 K/mm3 (0.0-0.4) 11/26/20 05:29 Baso # (Auto) 0.0 K/mm3 (0.0-0.1) 11/26/20 05:29 Seg Neutrophils % 85.9 % (40.0-70.0) H 11/26/20 05:29 Seg Neutrophils # 3.0 K/mm3 (1.8-7.7) 11/26/20 05:29 D-Dimer 398.68 ng/mlDDU (0-234) H 11/26/20 08:12 Sodium 141 mmol/L (137-145) 11/26/20 05:29 Potassium 4.3 mmol/L (3.6-5.0) 11/26/20 05:29 Chloride 104.0 mmol/L (98-107) 11/26/20 05:29 Carbon Dioxide 20 mmol/L (22-30) L 11/26/20 05:29 Anion Gap 21 mmol/L 11/26/20 05:29 BUN 10 mg/dL (7-17) 11/26/20 05:29 Creatinine 0.7 mg/dL (0.6-1.2) 11/26/20 05:29 Estimated GFR > 60 ml/min 11/26/20 05:29 BUN/Creatinine Ratio 14 % 11/26/20 05:29 Glucose 287 mg/dL (65-100) H 11/26/20 05:29 POC Glucose 266 mg/dL (70-105) H 11/27/20 06:21 Lactic Acid 0.80 mmol/L (0.7-2.0) 11/26/20 01:01 Calcium 8.0 mg/dL (8.4-10.2) L 11/26/20 05:29 Ferritin 215.3 ng/mL (10.0-200.0) H 11/26/20 08:12 Total Bilirubin 0.20 mg/dL (0.1-1.2) 11/25/20 14:42 AST 18 units/L (5-40) 11/25/20 14:42 ALT 10 units/L (7-56) 11/25/20 14:42 Alkaline Phosphatase 96 units/L (35-129) 11/25/20 14:42 Lactate Dehydrogenase 187 units/L (91-180) H 11/26/20 08:12 Troponin T < 0.010 ng/mL (0.00-0.029) 11/26/20 01:01 C-Reactive Protein 1.90 mg/dL (0.00-1.30) H 11/26/20 08:12 Total Protein 7.5 g/dL (6.3-8.2) 11/25/20 14:42 Albumin 3.9 g/dL (3.9-5) 11/25/20 14:42 Albumin/Globulin Ratio 1.1 % 11/25/20 14:42 Procalcitonin < 0.05 ng/mL (<0.15) 11/25/20 18:59 Urine Color Straw (Yellow) 11/25/20 16:50 Urine Turbidity Clear (Clear) 11/25/20 16:50 Urine pH 8.0 (5.0-7.0) H 11/25/20 16:50 Ur Specific [place] 1.008 (1.003-1.030) 11/25/20 16:50 Urine Protein 30 mg/dl mg/dL (Negative) 11/25/20 16:50 Urine Glucose (UA) Neg mg/dL (Negative) 11/25/20 16:50 Urine Ketones Neg mg/dL (Negative) 11/25/20 16:50 Urine Blood Neg (Negative) 11/25/20 16:50 Urine Nitrite Neg (Negative) 11/25/20 16:50 Urine Bilirubin Neg (Negative) 11/25/20 16:50 Urine Urobilinogen < 2.0 mg/dL (<2.0) 11/25/20 16:50 Ur Leukocyte Esterase Tr (Negative) 11/25/20 16:50 Urine WBC (Auto) 22.0 /HPF (0.0-6.0) H 11/25/20 16:50 Urine RBC (Auto) 2.0 /HPF (0.0-6.0) 11/25/20 16:50 U Epithel Cells (Auto) < 1.0 /HPF (0-13.0) 11/25/20 16:50 Coronavirus (PCR) Positive (Negative) A 11/26/20 Unknown Blood Type O POSITIVE 11/25/20 18:50 Antibody Screen Negative 11/25/20 18:50 Microbiology: Microbiology 11/25/20 18:46 Peripheral/Venous Blood Culture - Preliminary NO GROWTH AFTER 24 HOURS 11/25/20 18:46 Peripheral/Venous Blood Culture - Preliminary NO GROWTH AFTER 24 HOURS Active Medications - Current Medications Current Medications: Generic Name Dose Route Start Last Admin Trade Name Freq PRN Reason Stop Dose Admin Acetaminophen 650 mg 11/25/20 18:37 Acetaminophen 325 Mg Tab PO Q4H PRN Pain MILD(1-3)/Fever >100.5/PADILLA Albuterol 2.5 mg 11/25/20 18:37 Albuterol 2.5 Mg/3 Ml Nebu IH Q4HRT PRN Shortness Of Breath Ascorbic Acid 500 mg 11/25/20 22:00 11/26/20 22:00 Ascorbic Acid 500 Mg Tab PO 500 mg BID KATHRYN Administration Cholecalciferol 1,000 unit 11/25/20 21:00 11/26/20 10:19 Cholecalciferol (Vit D3) 1000 Unit (25 Mcg) Tab PO 1,000 unit QDAY KATHRYN Administration Dextrose 0 ml 11/25/20 20:50 Dextrose 50% In Water (25gm) 50 Ml Syringe IV Q30MIN PRN Hypoglycemia Protocol Famotidine 10 mg 11/25/20 22:00 11/26/20 22:00 Famotidine 10 Mg Tab PO 10 mg BID KATHRYN Administration Heparin Sodium (Porcine) 5,000 unit 11/25/20 22:00 11/26/20 22:00 Heparin 5,000 Unit/1 Ml Vial SUB-Q 5,000 unit Q12HR KATHRYN Administration Hydromorphone HCl 0.5 mg 11/25/20 18:37 Hydromorphone 1 Mg/1 Ml Inj IV Q23H PRN Pain , Severe (7-10) Hydromorphone HCl 0.25 mg 11/25/20 18:40 Hydromorphone 1 Mg/1 Ml Inj IV Q4H PRN Pain, Moderate (4-6) Ceftriaxone Sodium 2 gm in 100 mls @ 200 mls/hr 11/25/20 19:00 11/26/20 18:55 Rocephin/Ns 2 Gm/100 Ml IV 200 mls/hr Q24H KATHRYN Administration Protocol Azithromycin 500 mg in 250 mls @ 250 mls/hr 11/25/20 19:00 11/26/20 20:04 Zithromax/Ns IV 250 mls/hr Q24H KATHRYN Administration Protocol Insulin Human Lispro 0 unit 11/26/20 00:00 11/27/20 06:29 Insulin Lispro 100 Unit/Ml SUB-Q 8 unit Q6HR KATHRYN Administration Protocol Lisinopril 20 mg 11/26/20 10:00 11/26/20 10:18 Lisinopril 10 Mg Tab PO 20 mg DAILY KATHRYN Administration Methylprednisolone Sodium Succinate 40 mg 11/25/20 22:00 11/27/20 06:28 Methylprednisolone Sod Succinate 40 Mg/1 Ml Inj IV 40 mg Q8HR KATHRYN Administration Ondansetron HCl 4 mg 11/25/20 18:37 Ondansetron 4 Mg/2 Ml Inj IV Q8H PRN Nausea And Vomiting Oxycodone/Acetaminophen 1 tab 11/25/20 18:37 Oxycodone /Acetaminophen 5-325mg Tab PO Q16H PRN Pain, Moderate (4-6) Sodium Chloride 10 ml 11/25/20 22:00 11/26/20 22:00 Sodium Chloride 0.9% 10 Ml Flush Syringe IV 10 ml BID KATHRYN Administration Sodium Chloride 10 ml 11/25/20 18:37 Sodium Chloride 0.9% 10 Ml Flush Syringe IV PRN PRN LINE FLUSH Sodium Chloride 10 ml 11/25/20 18:50 Sodium Chloride 0.9% 10 Ml Flush Syringe IV PRN PRN LINE FLUSH Tramadol HCl 50 mg 11/25/20 18:50 Tramadol 50 Mg Tab PO Q6H PRN Pain, Moderate (4-6) Zinc Sulfate 220 mg 11/25/20 22:00 11/26/20 22:00 Zinc Sulfate 220 Mg Cap PO 220 mg BID KATHRYN Administration
[2020-11-27] MEDS: ASCORBIC ACID 500 MG TAB PO SCH ×2 (11:11→22:28)
[2020-11-27] MEDS: HEPARIN 5,000 UNIT/1 ML VIAL SUB-Q SCH ×2 (11:11→22:27)
[2020-11-27] MEDS: LISINOPRIL 10 MG TAB PO SCH (11:12)
[2020-11-27] MEDS: FAMOTIDINE 10 MG TAB PO SCH ×2 (11:12→22:27)
[2020-11-27] MEDS: ZINC SULFATE 220 MG CAP PO SCH ×2 (11:12→22:27)
[2020-11-27] MEDS: CHOLECALCIFEROL (VIT D3) 1000 UNIT (25 mcg) TAB PO SCH (13:10)
[2020-11-27] MEDS: cefTRIAXone/NS 2 GM/100 ML 2 GM/100 ML BAG IV SCH (18:47)
[2020-11-27] MEDS: AZITHROMYCIN/NS 500 MG/250 ML 500 MG/250 ML BAG IV SCH (19:24)
[2020-11-28] MEDS: INSULIN LISPRO 100 UNIT/ML SUB-Q SCH ×4 (05:33→23:22)
[2020-11-28] MEDS: methylPREDNISolone Sod Succinate 40 MG/1 ML INJ IV SCH ×3 (05:33→22:00)
--- NOTE | 2020-11-28 07:54 | Progress Note ---
Assessment and Plan Assessment and plan: Sepsis. Present on admission. Patient meets criteria given the tachycardia, tachypnea, leukopenia and diagnosis of pneumonia. Acute hypoxemic respiratory failure. Bilateral pneumonia. COVID-19 pneumonia. Fibromyalgia. Rheumatoid arthritis. 11/26/2020. Patient with suspected COVID-19 pneumonia. We will follow-up Covid PCR and procalcitonin level. Continue antibiotics of ceftriaxone and azithr omycin for now. Consult ID. Continue Solu-Medrol 40 mg IV every 8 hours and consider transitioning to dexamethasone. Check and trend inflammatory markers. 11/27/2020. Covid PCR positive on 11/26. Follow-up procalcitonin level. Continue IV antibiotics and IV steroid. ID consultation pending. Continue to trend inflammatory markers. 11/28/2020. Procalcitonin level is low. Therefore, we will anticipate discontinuing antibiotics today. Await ID consultation. Continue IV steroids. Exercise pulse oximetry prior to discharge History Interval history: No new issues overnight. Hospitalist Physical - Constitutional Vitals: Temp Pulse Resp BP Pulse Ox 97.8 F 71 20 148/79 90 11/28/20 05:30 11/28/20 05:30 11/28/20 05:30 11/28/20 05:30 11/28/20 05:30 General appearance: Present: no acute distress - EENT Eyes: Present: PERRL, EOM intact ENT: hearing intact, clear oral mucosa, dentition normal - Neck Neck: Present: supple, normal ROM - Respiratory Respiratory effort: normal Respiratory: bilateral: CTA - Cardiovascular Rhythm: regular Heart Sounds: Present: S1 & S2. Absent: gallop, rub - Extremities Extremities: no ischemia, No edema, Full ROM - Abdominal General gastrointestinal: soft, non-tender, non-distended, normal bowel sounds - Integumentary Integumentary: Present: clear, warm, dry - Neurologic Neurologic: CNII-XII intact, moves all extremities HEART Score - HEART Score EKG: Normal Age: 45-65 Risk factors: > 3 risk factors or hx of atherosclerotic disease Troponin: Troponin T < 0.010 ng/mL (0.00-0.029) 11/26/20 01:01 Troponin: < normal limit Results - Labs CBC & Chem 7: 11/26/20 05:29 11/26/20 05:29 Labs: Laboratory Last Values WBC 3.5 K/mm3 (4.5-11.0) L 11/26/20 05:29 RBC 4.49 M/mm3 (3.65-5.03) 11/26/20 05:29 Hgb 10.4 gm/dl (10.1-14.3) 11/26/20 05:29 Hct 38.1 % (30.3-42.9) 11/26/20 05:29 MCV 85 fl (79-97) 11/26/20 05:29 MCH 23 pg (28-32) L 11/26/20 05:29 MCHC 27 % (30-34) L 11/26/20 05:29 RDW 14.5 % (13.2-15.2) 11/26/20 05:29 Plt Count 213 K/mm3 (140-440) 11/26/20 05:29 Lymph % (Auto) 11.4 % (13.4-35.0) L 11/26/20 05:29 [place] % (Auto) 2.4 % (0.0-7.3) 11/26/20 05:29 Eos % (Auto) 0.0 % (0.0-4.3) 11/26/20 05:29 Baso % (Auto) 0.3 % (0.0-1.8) 11/26/20 05:29 Lymph # (Auto) 0.4 K/mm3 (1.2-5.4) L 11/26/20 05:29 [place] # (Auto) 0.1 K/mm3 (0.0-0.8) 11/26/20 05:29 Eos # (Auto) 0.0 K/mm3 (0.0-0.4) 11/26/20 05:29 Baso # (Auto) 0.0 K/mm3 (0.0-0.1) 11/26/20 05:29 Seg Neutrophils % 85.9 % (40.0-70.0) H 11/26/20 05:29 Seg Neutrophils # 3.0 K/mm3 (1.8-7.7) 11/26/20 05:29 D-Dimer 398.68 ng/mlDDU (0-234) H 11/26/20 08:12 Sodium 141 mmol/L (137-145) 11/26/20 05:29 Potassium 4.3 mmol/L (3.6-5.0) 11/26/20 05:29 Chloride 104.0 mmol/L (98-107) 11/26/20 05:29 Carbon Dioxide 20 mmol/L (22-30) L 11/26/20 05:29 Anion Gap 21 mmol/L 11/26/20 05:29 BUN 10 mg/dL (7-17) 11/26/20 05:29 Creatinine 0.7 mg/dL (0.6-1.2) 11/26/20 05:29 Estimated GFR > 60 ml/min 11/26/20 05:29 BUN/Creatinine Ratio 14 % 11/26/20 05:29 Glucose 287 mg/dL (65-100) H 11/26/20 05:29 POC Glucose 296 mg/dL (70-105) H 11/28/20 05:28 Lactic Acid 0.80 mmol/L (0.7-2.0) 11/26/20 01:01 Calcium 8.0 mg/dL (8.4-10.2) L 11/26/20 05:29 Ferritin 215.3 ng/mL (10.0-200.0) H 11/26/20 08:12 Total Bilirubin 0.20 mg/dL (0.1-1.2) 11/25/20 14:42 AST 18 units/L (5-40) 11/25/20 14:42 ALT 10 units/L (7-56) 11/25/20 14:42 Alkaline Phosphatase 96 units/L (35-129) 11/25/20 14:42 Lactate Dehydrogenase 187 units/L (91-180) H 11/26/20 08:12 Troponin T < 0.010 ng/mL (0.00-0.029) 11/26/20 01:01 C-Reactive Protein 1.90 mg/dL (0.00-1.30) H 11/26/20 08:12 Total Protein 7.5 g/dL (6.3-8.2) 11/25/20 14:42 Albumin 3.9 g/dL (3.9-5) 11/25/20 14:42 Albumin/Globulin Ratio 1.1 % 11/25/20 14:42 Procalcitonin < 0.05 ng/mL (<0.15) 11/27/20 13:12 Urine Color Straw (Yellow) 11/25/20 16:50 Urine Turbidity Clear (Clear) 11/25/20 16:50 Urine pH 8.0 (5.0-7.0) H 11/25/20 16:50 Ur Specific [place] 1.008 (1.003-1.030) 11/25/20 16:50 Urine Protein 30 mg/dl mg/dL (Negative) 11/25/20 16:50 Urine Glucose (UA) Neg mg/dL (Negative) 11/25/20 16:50 Urine Ketones Neg mg/dL (Negative) 11/25/20 16:50 Urine Blood Neg (Negative) 11/25/20 16:50 Urine Nitrite Neg (Negative) 11/25/20 16:50 Urine Bilirubin Neg (Negative) 11/25/20 16:50 Urine Urobilinogen < 2.0 mg/dL (<2.0) 11/25/20 16:50 Ur Leukocyte Esterase Tr (Negative) 11/25/20 16:50 Urine WBC (Auto) 22.0 /HPF (0.0-6.0) H 11/25/20 16:50 Urine RBC (Auto) 2.0 /HPF (0.0-6.0) 11/25/20 16:50 U Epithel Cells (Auto) < 1.0 /HPF (0-13.0) 11/25/20 16:50 Coronavirus (PCR) Positive (Negative) A 11/26/20 Unknown Blood Type O POSITIVE 11/25/20 18:50 Antibody Screen Negative 11/25/20 18:50 Microbiology: Microbiology 11/25/20 16:50 Urine,Clean Catch Urine Culture - Final 11/25/20 18:46 Peripheral/Venous Blood Culture - Preliminary NO GROWTH AFTER 48 HOURS 11/25/20 18:46 Peripheral/Venous Blood Culture - Preliminary NO GROWTH AFTER 48 HOURS Rainey/IV: Voiding Method Toilet Active Medications - Current Medications Current Medications: Generic Name Dose Route Start Last Admin Trade Name Freq PRN Reason Stop Dose Admin Acetaminophen 650 mg 11/25/20 18:37 Acetaminophen 325 Mg Tab PO Q4H PRN Pain MILD(1-3)/Fever >100.5/PADILLA Albuterol 2.5 mg 11/25/20 18:37 Albuterol 2.5 Mg/3 Ml Nebu IH Q4HRT PRN Shortness Of Breath Ascorbic Acid 500 mg 11/25/20 22:00 11/27/20 22:28 Ascorbic Acid 500 Mg Tab PO 500 mg BID KATHRYN Administration Cholecalciferol 1,000 unit 11/25/20 21:00 11/27/20 13:10 Cholecalciferol (Vit D3) 1000 Unit (25 Mcg) Tab PO 1,000 unit QDAY KATHRYN Administration Dextrose 0 ml 11/25/20 20:50 Dextrose 50% In Water (25gm) 50 Ml Syringe IV Q30MIN PRN Hypoglycemia Protocol Famotidine 10 mg 11/25/20 22:00 11/27/20 22:27 Famotidine 10 Mg Tab PO 10 mg BID KATHRYN Administration Heparin Sodium (Porcine) 5,000 unit 11/25/20 22:00 11/27/20 22:27 Heparin 5,000 Unit/1 Ml Vial SUB-Q 5,000 unit Q12HR KATHRYN Administration Hydromorphone HCl 0.5 mg 11/25/20 18:37 Hydromorphone 1 Mg/1 Ml Inj IV Q23H PRN Pain , Severe (7-10) Hydromorphone HCl 0.25 mg 11/25/20 18:40 Hydromorphone 1 Mg/1 Ml Inj IV Q4H PRN Pain, Moderate (4-6) Ceftriaxone Sodium 2 gm in 100 mls @ 200 mls/hr 11/25/20 19:00 11/27/20 18:47 Rocephin/Ns 2 Gm/100 Ml IV 200 mls/hr Q24H KATHRYN Administration Protocol Azithromycin 500 mg in 250 mls @ 250 mls/hr 11/25/20 19:00 11/27/20 19:24 Zithromax/Ns IV 250 mls/hr Q24H KATHRYN Administration Protocol Insulin Human Lispro 0 unit 11/26/20 00:00 11/28/20 05:33 Insulin Lispro 100 Unit/Ml SUB-Q 8 unit Q6HR KATHRYN Administration Protocol Lisinopril 20 mg 11/26/20 10:00 11/27/20 11:12 Lisinopril 10 Mg Tab PO 20 mg DAILY KATHRYN Administration Methylprednisolone Sodium Succinate 40 mg 11/25/20 22:00 11/28/20 05:33 Methylprednisolone Sod Succinate 40 Mg/1 Ml Inj IV 40 mg Q8HR KATHRYN Administration Ondansetron HCl 4 mg 11/25/20 18:37 Ondansetron 4 Mg/2 Ml Inj IV Q8H PRN Nausea And Vomiting Oxycodone/Acetaminophen 1 tab 11/25/20 18:37 11/27/20 22:39 Oxycodone /Acetaminophen 5-325mg Tab PO 1 tab Q16H PRN Administration Pain, Moderate (4-6) Sodium Chloride 10 ml 11/25/20 22:00 11/27/20 22:28 Sodium Chloride 0.9% 10 Ml Flush Syringe IV 10 ml BID KATHRYN Administration Sodium Chloride 10 ml 11/25/20 18:37 Sodium Chloride 0.9% 10 Ml Flush Syringe IV PRN PRN LINE FLUSH Sodium Chloride 10 ml 11/25/20 18:50 Sodium Chloride 0.9% 10 Ml Flush Syringe IV PRN PRN LINE FLUSH Tramadol HCl 50 mg 11/25/20 18:50 Tramadol 50 Mg Tab PO Q6H PRN Pain, Moderate (4-6) Zinc Sulfate 220 mg 11/25/20 22:00 11/27/20 22:27 Zinc Sulfate 220 Mg Cap PO 220 mg BID KATHRYN Administration
[2020-11-28] MEDS: CHOLECALCIFEROL (VIT D3) 1000 UNIT (25 mcg) TAB PO SCH (09:13)
[2020-11-28] MEDS: LISINOPRIL 10 MG TAB PO SCH (09:13)
[2020-11-28] MEDS: FAMOTIDINE 10 MG TAB PO SCH ×2 (09:13→22:00)
[2020-11-28] MEDS: ASCORBIC ACID 500 MG TAB PO SCH ×2 (09:13→22:00)
[2020-11-28] MEDS: ZINC SULFATE 220 MG CAP PO SCH ×2 (09:13→22:00)
--- NOTE | 2020-11-28 10:28 | Consultation ---
History of Present Illness - Reason for Consult Consult date: 11/28/20 - History of Present Illness 65 YO Female with HTN, HLD, OA, DM, RA, Fibromyalgia not currently taking DMARD presented the the hospital complaining of 2 weeks of chest pain that acutely worsened in the days prior to admission. SHe also admitted to typical COVID symptoms including fevers, chills, decreased exercise tolerance. She is unvaccianted against COVID. Febrile to 101.9 white count 3.5. Covid positive. Normal procalcitonin. Normal renal function. Currently on ceftriaxone and azithromycin. Requiring nasal cannula. Imaging personally reviewed: Chest CTA: Bilateral airspace disease, no PE Review of systems: Deferred to reduce to the risk of transmission of COVID-19 Past History Past Medical History: arthritis, diabetes, hypertension, hyperlipidemia Past Surgical History: No surgical history, Other (Reviewed) Social history: single. denies: smoking, alcohol abuse Family history: hypertension Medications and Allergies Allergies Allergy/AdvReac Type Severity Reaction Status Date / Time No Known Allergies Allergy Verified 11/25/20 18:41 Home Medications Medication Instructions Recorded Confirmed Last Taken Type HumaLOG 70 units SQ DAILY 11/25/20 11/25/20 Unknown History Lisinopril [Zestril TAB] 20 mg PO DAILY 11/25/20 11/25/20 11/24/20 19:00 History Active Meds: Active Medications Acetaminophen (Acetaminophen 325 Mg Tab) 650 mg PO Q4H PRN PRN Reason: Pain MILD(1-3)/Fever >100.5/PADILLA Albuterol (Albuterol 2.5 Mg/3 Ml Nebu) 2.5 mg IH Q4HRT PRN PRN Reason: Shortness Of Breath Ascorbic Acid (Ascorbic Acid 500 Mg Tab) 500 mg PO BID [facility] Last Admin: 11/28/20 09:13 Dose: 500 mg Documented by: Cholecalciferol (Cholecalciferol (Vit D3) 1000 Unit (25 Mcg) Tab) 1,000 unit PO QDAY [facility] Last Admin: 11/28/20 09:13 Dose: 1,000 unit Documented by: Dextrose (Dextrose 50% In Water (25gm) 50 Ml Syringe) 0 ml IV Q30MIN PRN; Protocol PRN Reason: Hypoglycemia Famotidine (Famotidine 10 Mg Tab) 10 mg PO BID [facility] Last Admin: 11/28/20 09:13 Dose: 10 mg Documented by: Heparin Sodium (Porcine) (Heparin 5,000 Unit/1 Ml Vial) 5,000 unit SUB-Q Q12HR [facility] Last Admin: 11/27/20 22:27 Dose: 5,000 unit Documented by: Hydromorphone HCl (Hydromorphone 1 Mg/1 Ml Inj) 0.5 mg IV Q23H PRN PRN Reason: Pain , Severe (7-10) Hydromorphone HCl (Hydromorphone 1 Mg/1 Ml Inj) 0.25 mg IV Q4H PRN PRN Reason: Pain, Moderate (4-6) Ceftriaxone Sodium (Rocephin/Ns 2 Gm/100 Ml) 2 gm in 100 mls @ 200 mls/hr IV Q24H [facility]; Protocol Last Admin: 11/27/20 18:47 Dose: 200 mls/hr Documented by: Azithromycin (Zithromax/Ns) 500 mg in 250 mls @ 250 mls/hr IV Q24H [facility]; Prot ocol Last Admin: 11/27/20 19:24 Dose: 250 mls/hr Documented by: Insulin Human Lispro (Insulin Lispro 100 Unit/Ml) 0 unit SUB-Q Q6HR [facility]; Protocol Last Admin: 11/28/20 05:33 Dose: 8 unit Documented by: Lisinopril (Lisinopril 10 Mg Tab) 20 mg PO DAILY [facility] Last Admin: 11/28/20 09:13 Dose: 20 mg Documented by: Methylprednisolone Sodium Succinate (Methylprednisolone Sod Succinate 40 Mg/1 Ml Inj) 40 mg IV Q8HR [facility] Last Admin: 11/28/20 05:33 Dose: 40 mg Documented by: Ondansetron HCl (Ondansetron 4 Mg/2 Ml Inj) 4 mg IV Q8H PRN PRN Reason: Nausea And Vomiting Oxycodone/Acetaminophen (Oxycodone /Acetaminophen 5-325mg Tab) 1 tab PO Q16H PRN PRN Reason: Pain, Moderate (4-6) Last Admin: 11/27/20 22:39 Dose: 1 tab Documented by: Sodium Chloride (Sodium Chloride 0.9% 10 Ml Flush Syringe) 10 ml IV BID [facility] Last Admin: 11/28/20 09:15 Dose: 10 ml Documented by: Sodium Chloride (Sodium Chloride 0.9% 10 Ml Flush Syringe) 10 ml IV PRN PRN PRN Reason: LINE FLUSH Sodium Chloride (Sodium Chloride 0.9% 10 Ml Flush Syringe) 10 ml IV PRN PRN PRN Reason: LINE FLUSH Tramadol HCl (Tramadol 50 Mg Tab) 50 mg PO Q6H PRN PRN Reason: Pain, Moderate (4-6) Zinc Sulfate (Zinc Sulfate 220 Mg Cap) 220 mg PO BID KATHRYN Last Admin: 11/28/20 09:13 Dose: 220 mg Documented by: Physical Examination - Physical Exam Narrative exam: Physical exam deferred to reduce risk of transmission of COVID-19. Please refer to primary team's note. - Constitutional Vitals: Vital Signs Temp Pulse Resp BP Pulse Ox 97.8 F 71 20 140/72 98 11/28/20 05:30 11/28/20 05:30 11/28/20 05:30 11/28/20 09:13 11/28/20 09:06 Temperature -Last 24 Hours Temperature 97.8 F Temperature 98.5 F Results - Labs CBC & Chem 7: 11/26/20 05:29 11/26/20 05:29 Labs: Abnormal lab results 11/27/20 11/27/20 11/27/20 Range/Units 13:09 18:52 23:33 POC Glucose 280 H 386 H 246 H (70-105) mg/dL 11/28/20 Range/Units 05:28 POC Glucose 296 H (70-105) mg/dL Assessment and Plan Cultures: COVID positive A/P: 65 YO Female with HTN, HLD, OA, DM, RA, Fibromyalgia admitted with COVID #COVID-19 pneumonia: Patient presented with a week of symptoms, chest x-ray with diffuse bilateral infiltrates, admission O2 sats on room air. Inflammatory markers elevated #Acute hypoxemic respiratory failure: Likely secondary to COVID-19 infection. Currently on 1L NC #RA: not currently on immunosuppressant Recs: -Steroids per primary for 10 days -Remdesivir 200 mg IV q day x 1 followed by 100 mg IV q day x 4 days -Obtain q48-72h inflammatory markers - ferritin, Ddimer, CRP, LDH -Stopped antibiotics due to normal procalitonin. -Anticoagulation per hospital protocol -Proning as able Thank you for the consult, we will continue to follow. MD Qamar Perez [facility] O: [phone] F: [phone]
[2020-11-28] MEDS: HEPARIN 5,000 UNIT/1 ML VIAL SUB-Q SCH ×2 (10:33→22:01)
--- NOTE | 2020-11-28 12:53 | Consultation ---
History of Present Illness Consult date: 11/28/20 Consult reason: chest pain History of present illness: The patient is a 65-year-old woman previously unvaccinated for COVID-19, pres ented with cough and chest chest pain, with a fever of 101.4. CT angiogram of the chest reported interstitial evidence of Covid pneumonia. Subsequent Covid serology test was positive. She is admitted for management of acute Covid viral pneumonia. Cardiac consultation was requested for evaluation of her complaint of chest pain in the setting of her acute viral pneumonia and protracted cough. Patient describes atypical nonexertional pain associated with her coughing. EKG in the hospital was normal sinus rhythm, normal ECG. Troponin levels were negative x3. She has no prior cardiac history. Past History Past Medical History: arthritis, diabetes, hypertension, hyperlipidemia Past Surgical History: No surgical history, Other (Reviewed) Social history: single. denies: smoking, alcohol abuse Family history: hypertension Medications and Allergies Allergies Allergy/AdvReac Type Severity Reaction Status Date / Time No Known Allergies Allergy Verified 11/25/20 18:41 Home Medications Medication Instructions Recorded Confirmed Last Taken Type HumaLOG 70 units SQ DAILY 11/25/20 11/25/20 Unknown History Lisinopril [Zestril TAB] 20 mg PO DAILY 11/25/20 11/25/20 11/24/20 19:00 History Active Meds: Active Medications Acetaminophen (Acetaminophen 325 Mg Tab) 650 mg PO Q4H PRN PRN Reason: Pain MILD(1-3)/Fever >100.5/PADILLA Albuterol (Albuterol 2.5 Mg/3 Ml Nebu) 2.5 mg IH Q4HRT PRN PRN Reason: Shortness Of Breath Ascorbic Acid (Ascorbic Acid 500 Mg Tab) 500 mg PO BID [facility] Last Admin: 11/28/20 09:13 Dose: 500 mg Documented by: Cholecalciferol (Cholecalciferol (Vit D3) 1000 Unit (25 Mcg) Tab) 1,000 unit PO QDAY [facility] Last Admin: 11/28/20 09:13 Dose: 1,000 unit Documented by: Dextrose (Dextrose 50% In Water (25gm) 50 Ml Syringe) 0 ml IV Q30MIN PRN; Protocol PRN Reason: Hypoglycemia Famotidine (Famotidine 10 Mg Tab) 10 mg PO BID [facility] Last Admin: 11/28/20 09:13 Dose: 10 mg Documented by: Heparin Sodium (Porcine) (Heparin 5,000 Unit/1 Ml Vial) 5,000 unit SUB-Q Q12HR [facility] Last Admin: 11/27/20 22:27 Dose: 5,000 unit Documented by: Hydromorphone HCl (Hydromorphone 1 Mg/1 Ml Inj) 0.5 mg IV Q23H PRN PRN Reason: Pain , Severe (7-10) Hydromorphone HCl (Hydromorphone 1 Mg/1 Ml Inj) 0.25 mg IV Q4H PRN PRN Reason: Pain, Moderate (4-6) Ceftriaxone Sodium (Rocephin/Ns 2 Gm/100 Ml) 2 gm in 100 mls @ 200 mls/hr IV Q24H [facility]; Protocol Last Admin: 11/27/20 18:47 Dose: 200 mls/hr Documented by: Azithromycin (Zithromax/Ns) 500 mg in 250 mls @ 250 mls/hr IV Q24H [facility]; Protocol Last Admin: 11/27/20 19:24 Dose: 250 mls/hr Documented by: Insulin Human Lispro (Insulin Lispro 100 Unit/Ml) 0 unit SUB-Q Q6HR KATHRYN; Protoc ol Last Admin: 11/28/20 05:33 Dose: 8 unit Documented by: Lisinopril (Lisinopril 10 Mg Tab) 20 mg PO DAILY [facility] Last Admin: 11/28/20 09:13 Dose: 20 mg Documented by: Methylprednisolone Sodium Succinate (Methylprednisolone Sod Succinate 40 Mg/1 Ml Inj) 40 mg IV Q8HR [facility] Last Admin: 11/28/20 05:33 Dose: 40 mg Documented by: Ondansetron HCl (Ondansetron 4 Mg/2 Ml Inj) 4 mg IV Q8H PRN PRN Reason: Nausea And Vomiting Oxycodone/Acetaminophen (Oxycodone /Acetaminophen 5-325mg Tab) 1 tab PO Q16H PRN PRN Reason: Pain, Moderate (4-6) Last Admin: 11/27/20 22:39 Dose: 1 tab Documented by: Sodium Chloride (Sodium Chloride 0.9% 10 Ml Flush Syringe) 10 ml IV BID [facility] Last Admin: 11/28/20 09:15 Dose: 10 ml Documented by: Sodium Chloride (Sodium Chloride 0.9% 10 Ml Flush Syringe) 10 ml IV PRN PRN PRN Reason: LINE FLUSH Sodium Chloride (Sodium Chloride 0.9% 10 Ml Flush Syringe) 10 ml IV PRN PRN PRN Reason: LINE FLUSH Tramadol HCl (Tramadol 50 Mg Tab) 50 mg PO Q6H PRN PRN Reason: Pain, Moderate (4-6) Zinc Sulfate (Zinc Sulfate 220 Mg Cap) 220 mg PO BID KATHRYN Last Admin: 11/28/20 09:13 Dose: 220 mg Documented by: Review of Systems Cardiovascular: chest pain, shortness of breath, no orthopnea, no palpitations, no rapid/irregular heart beat, no edema, no syncope, no lightheadedness Physical Examination Vital Signs Temp Pulse Resp BP Pulse Ox 100.7 F H 86 16 126/86 96 11/25/20 13:40 11/25/20 13:40 11/25/20 13:40 11/25/20 13:40 11/25/20 13:40 Narrative exam: Full physical exam is deferred due to acute Covid infection. General appearance: no acute distress HEENT: Positive: PERRL Neck: Positive: neck supple Results 11/26/20 05:29 11/26/20 05:29 EKG interpretations - Telemetry EKG Rhythm: Sinus Rhythm (Normal ECG) Assessment and Plan - Patient Problems (1) Atypical chest pain Current Visit: Yes Status: Acute Plan to address problem: Patient admitted with acute Covid pneumonia. Constellation of symptoms included protracted coughing that was associated with musculoskeletal type chest pain. ECG is normal and serial troponin levels are normal. No further cardiac work-up is indicated for musculoskeletal chest pain. Will follow intermittently.
[2020-11-28] MEDS: AZITHROMYCIN/NS 500 MG/250 ML 500 MG/250 ML BAG IV SCH (18:02)
[2020-11-28] MEDS: cefTRIAXone/NS 2 GM/100 ML 2 GM/100 ML BAG IV SCH (18:02)
[2020-11-29 05:41] LABS: Hematocrit 33.2 % (30.3-42.9); Mean Corpuscular HGB Conc 33 % (30-34); Mean Corpuscular Volume 70 fl (79-97); Platelet Count 273 K/mm3 (140-440); Red Blood Count 4.73 M/mm3 (3.65-5.03); Red Cell Distribution Width 13.6 % (13.2-15.2)
[2020-11-29 05:49] LABS: Blood Urea Nitrogen 11 mg/dL (7-17); Calcium 8.1 mg/dL (8.4-10.2); Hemolysis Index 5
[2020-11-29] MEDS: methylPREDNISolone Sod Succinate 40 MG/1 ML INJ IV SCH ×3 (05:53→21:58)
[2020-11-29 05:56] LABS: BUN/Creatinine Ratio 22
[2020-11-29 06:54] LABS: Hypochromasia 1+; Platelet Estimate Consistent w Auto; Total Cells Counted 100
[2020-11-29] MEDS: INSULIN LISPRO 100 UNIT/ML SUB-Q SCH ×4 (09:51→21:59)
[2020-11-29] MEDS: FAMOTIDINE 10 MG TAB PO SCH ×2 (09:52→21:58)
[2020-11-29] MEDS: ZINC SULFATE 220 MG CAP PO SCH ×2 (09:52→21:58)
[2020-11-29] MEDS: CHOLECALCIFEROL (VIT D3) 1000 UNIT (25 mcg) TAB PO SCH (09:52)
[2020-11-29] MEDS: ASCORBIC ACID 500 MG TAB PO SCH ×2 (09:52→21:59)
[2020-11-29] MEDS: HEPARIN 5,000 UNIT/1 ML VIAL SUB-Q SCH ×2 (09:52→21:59)
[2020-11-29] MEDS: LISINOPRIL 10 MG TAB PO SCH (09:58)
[2020-11-29] MEDS ORDERED: REMDESIVIR 200 MG in SODIUM CHLORIDE 0.9% 250ML 250 ML IV ONE (10:00)
--- NOTE | 2020-11-29 10:56 | Electrocardiograph Report ---
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
--- NOTE | 2020-11-29 10:58 | Electrocardiograph Report ---
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
--- NOTE | 2020-11-29 12:52 | Progress Note ---
Assessment and Plan Assessment and plan: Sepsis. Present on admission. Patient meets criteria given the tachycardia, tachypnea, leukopenia and diagnosis of pneumonia. Acute hypoxemic respiratory failure. Bilateral pneumonia. COVID-19 pneumonia. Fibromyalgia. Rheumatoid arthritis. 11/26/2020. Patient with suspected COVID-19 pneumonia. We will follow-up Covid PCR and procalcitonin level. Continue antibiotics of ceftriaxone and azithro mycin for now. Consult ID. Continue Solu-Medrol 40 mg IV every 8 hours and consider transitioning to dexamethasone. Check and trend inflammatory markers. 11/27/2020. Covid PCR positive on 11/26. Follow-up procalcitonin level. Continue IV antibiotics and IV steroid. ID consultation pending. Continue to trend inflammatory markers. 11/28/2020. Procalcitonin level is low. Therefore, we will anticipate discontinuing antibiotics today. Await ID consultation. Continue IV steroids. Exercise pulse oximetry prior to discharge 11/29/2020 patient with Covid-19. Doing better. She is on Oxygen at 2 l/min. She still c/o shortness of breath on exertion. Likely dc home tomorrow since ambulatory Oxtgen sat 92% History Interval history: Still feels short of breath on exertion Hospitalist Physical - Physical exam Narrative exam: Gen: Not in acute distress, lying in bed, On Oxygen by NC HEENT: Normocephalic, atraumatic Lungs: Bilateral crackles, no wheeze Heart: S1 and S2 reg, no murmurs, rubs or gallop Abd:soft, non-tender, non distended, normal bowel sounds Ext: No edema, clubbing or cyanosis Neuro: Awake, alert, oriented X 3, moves all extremities - Constitutional Vitals: Temp Pulse Resp BP Pulse Ox 98.8 F 75 20 146/65 90 11/29/20 05:33 11/29/20 09:58 11/29/20 05:33 11/29/20 09:58 11/29/20 05:33 General appearance: Present: no acute distress HEART Score - HEART Score EKG: Normal Age: 45-65 Risk factors: > 3 risk factors or hx of atherosclerotic disease Troponin: Troponin T < 0.010 ng/mL (0.00-0.029) 11/26/20 01:01 Troponin: < normal limit Results - Labs CBC & Chem 7: 10/05/21 04:28 11/29/20 04:28 Labs: Laboratory Last Values WBC 12.5 K/mm3 (4.5-11.0) H 11/29/20 04:28 RBC 4.73 M/mm3 (3.65-5.03) 11/29/20 04:28 Hgb 11.0 gm/dl (10.1-14.3) 11/29/20 04:28 Hct 33.2 % (30.3-42.9) 11/29/20 04:28 MCV 70 fl (79-97) L 11/29/20 04:28 MCH 23 pg (28-32) L 11/29/20 04:28 MCHC 33 % (30-34) 11/29/20 04:28 RDW 13.6 % (13.2-15.2) 11/29/20 04:28 Plt Count 273 K/mm3 (140-440) 11/29/20 04:28 Lymph % (Auto) 11.4 % (13.4-35.0) L 11/26/20 05:29 [place] % (Auto) 2.4 % (0.0-7.3) 11/26/20 05:29 Eos % (Auto) 0.0 % (0.0-4.3) 11/26/20 05:29 Baso % (Auto) 0.3 % (0.0-1.8) 11/26/20 05:29 Lymph # (Auto) 0.4 K/mm3 (1.2-5.4) L 11/26/20 05:29 [place] # (Auto) 0.1 K/mm3 (0.0-0.8) 11/26/20 05:29 Eos # (Auto) 0.0 K/mm3 (0.0-0.4) 11/26/20 05:29 Baso # (Auto) 0.0 K/mm3 (0.0-0.1) 11/26/20 05:29 Add Manual Diff Complete 11/29/20 04:28 Total Counted 100 11/29/20 04:28 Seg Neutrophils % Quality Project Manager 11/29/20 04:28 Seg Neuts % (Manual) 86.0 % (40.0-70.0) H 11/29/20 04:28 Lymphocytes % (Manual) 11.0 % (13.4-35.0) L 11/29/20 04:28 Monocytes % (Manual) 3.0 % (0.0-7.3) 11/29/20 04:28 Nucleated RBC % Not Reportable 11/29/20 04:28 Seg Neutrophils # 3.0 K/mm3 (1.8-7.7) 11/26/20 05:29 Seg Neutrophils # Man 10.8 K/mm3 (1.8-7.7) H 11/29/20 04:28 Band Neutrophils # 0.0 K/mm3 11/29/20 04:28 Lymphocytes # (Manual) 1.4 K/mm3 (1.2-5.4) 11/29/20 04:28 Abs React Lymphs (Man) 0.0 K/mm3 11/29/20 04:28 Monocytes # (Manual) 0.4 K/mm3 (0.0-0.8) 11/29/20 04:28 Eosinophils # (Manual) 0.0 K/mm3 (0.0-0.4) 11/29/20 04:28 Basophils # (Manual) 0.0 K/mm3 (0.0-0.1) 11/29/20 04:28 Metamyelocytes # 0.0 K/mm3 11/29/20 04:28 Myelocytes # 0.0 K/mm3 11/29/20 04:28 Promyelocytes # 0.0 K/mm3 11/29/20 04:28 Blast Cells # 0.0 K/mm3 11/29/20 04:28 WBC Morphology Not Reportable 11/29/20 04:28 Hypersegmented Neuts Not Reportable 11/29/20 04:28 Hyposegmented Neuts Not Reportable 11/29/20 04:28 Hypogranular Neuts Not Reportable 11/29/20 04:28 Smudge Cells Not Reportable 11/29/20 04:28 Toxic Granulation Not Reportable 11/29/20 04:28 Toxic Vacuolation Not Reportable 11/29/20 04:28 Dohle Bodies Not Reportable 11/29/20 04:28 Pelger-Huet Anomaly Not Reportable 11/29/20 04:28 Delfin Rods Not Reportable 11/29/20 04:28 Platelet Estimate Consistent w auto 11/29/20 04:28 Clumped Platelets Not Reportable 11/29/20 04:28 Plt Clumps, EDTA Not Reportable 11/29/20 04:28 Large Platelets Not Reportable 11/29/20 04:28 Giant Platelets Not Reportable 11/29/20 04:28 Platelet Satelliting Not Reportable 11/29/20 04:28 Plt Morphology Comment Not Reportable 11/29/20 04:28 RBC Morphology Not Reportable 11/29/20 04:28 Dimorphic RBCs Not Reportable 11/29/20 04:28 Polychromasia Not Reportable 11/29/20 04:28 Hypochromasia 1+ 11/29/20 04:28 Poikilocytosis Not Reportable 11/29/20 04:28 Anisocytosis Not Reportable 11/29/20 04:28 Microcytosis Not Reportable 11/29/20 04:28 Macrocytosis Not Reportable 11/29/20 04:28 Spherocytes Not Reportable 11/29/20 04:28 Pappenheimer Bodies Not Reportable 11/29/20 04:28 Sickle Cells Not Reportable 11/29/20 04:28 Target Cells Not Reportable 11/29/20 04:28 Tear Drop Cells Not Reportable 11/29/20 04:28 Ovalocytes Not Reportable 11/29/20 04:28 Helmet Cells Not Reportable 11/29/20 04:28 [place] Bodies Not Reportable 11/29/20 04:28 [place] Not Reportable 11/29/20 04:28 [place] Cells Not Reportable 11/29/20 04:28 Bite Cells Not Reportable 11/29/20 04:28 Crenated Cell Not Reportable 11/29/20 04:28 Elliptocytes Not Reportable 11/29/20 04:28 Acanthocytes (Spur) Not Reportable 11/29/20 04:28 Rouleaux Not Reportable 11/29/20 04:28 Hemoglobin C Crystals Not Reportable 11/29/20 04:28 Schistocytes Not Reportable 11/29/20 04:28 Malaria parasites Not Reportable 11/29/20 04:28 [place] Bodies Not Reportable 11/29/20 04:28 Hem Pathologist Commnt No 11/29/20 04:28 D-Dimer 398.68 ng/mlDDU (0-234) H 11/26/20 08:12 Sodium 139 mmol/L (137-145) 11/29/20 04:28 Potassium 3.5 mmol/L (3.6-5.0) L 11/29/20 04:28 Chloride 98.8 mmol/L (98-107) 11/29/20 04:28 Carbon Dioxide 27 mmol/L (22-30) D 11/29/20 04:28 Anion Gap 17 mmol/L 11/29/20 04:28 BUN 11 mg/dL (7-17) 11/29/20 04:28 Creatinine 0.5 mg/dL (0.6-1.2) L 11/29/20 04:28 Estimated GFR > 60 ml/min 11/29/20 04:28 BUN/Creatinine Ratio 22 % 11/29/20 04:28 Glucose 269 mg/dL (65-100) H 11/29/20 04:28 POC Glucose 415 mg/dL (70-105) H 11/29/20 11:12 Hemoglobin A1c 10.1 % (4-6) H 11/29/20 04:28 Lactic Acid 0.80 mmol/L (0.7-2.0) 11/26/20 01:01 Calcium 8.1 mg/dL (8.4-10.2) L 11/29/20 04:28 Ferritin 215.3 ng/mL (10.0-200.0) H 11/26/20 08:12 Total Bilirubin 0.20 mg/dL (0.1-1.2) 11/25/20 14:42 AST 18 units/L (5-40) 11/25/20 14:42 ALT 10 units/L (7-56) 11/25/20 14:42 Alkaline Phosphatase 96 units/L (35-129) 11/25/20 14:42 Lactate Dehydrogenase 187 units/L (91-180) H 11/26/20 08:12 Troponin T < 0.010 ng/mL (0.00-0.029) 11/26/20 01:01 C-Reactive Protein 1.90 mg/dL (0.00-1.30) H 11/26/20 08:12 Total Protein 7.5 g/dL (6.3-8.2) 11/25/20 14:42 Albumin 3.9 g/dL (3.9-5) 11/25/20 14:42 Albumin/Globulin Ratio 1.1 % 11/25/20 14:42 Procalcitonin < 0.05 ng/mL (<0.15) 11/27/20 13:12 Urine Color Straw (Yellow) 11/25/20 16:50 Urine Turbidity Clear (Clear) 11/25/20 16:50 Urine pH 8.0 (5.0-7.0) H 11/25/20 16:50 Ur Specific [place] 1.008 (1.003-1.030) 11/25/20 16:50 Urine Protein 30 mg/dl mg/dL (Negative) 11/25/20 16:50 Urine Glucose (UA) Neg mg/dL (Negative) 11/25/20 16:50 Urine Ketones Neg mg/dL (Negative) 11/25/20 16:50 Urine Blood Neg (Negative) 11/25/20 16:50 Urine Nitrite Neg (Negative) 11/25/20 16:50 Urine Bilirubin Neg (Negative) 11/25/20 16:50 Urine Urobilinogen < 2.0 mg/dL (<2.0) 11/25/20 16:50 Ur Leukocyte Esterase Tr (Negative) 11/25/20 16:50 Urine WBC (Auto) 22.0 /HPF (0.0-6.0) H 11/25/20 16:50 Urine RBC (Auto) 2.0 /HPF (0.0-6.0) 11/25/20 16:50 U Epithel Cells (Auto) < 1.0 /HPF (0-13.0) 11/25/20 16:50 Coronavirus (PCR) Positive (Negative) A 11/26/20 Unknown Blood Type O POSITIVE 11/25/20 18:50 Antibody Screen Negative 11/25/20 18:50 Microbiology: Microbiology 11/25/20 18:46 Peripheral/Venous Blood Culture - Preliminary NO GROWTH AFTER 72 HOURS 11/25/20 18:46 Peripheral/Venous Blood Culture - Preliminary NO GROWTH AFTER 72 HOURS Rainey/IV: Voiding Method Toilet Active Medications - Current Medications Current Medications: Generic Name Dose Route Start Last Admin Trade Name Freq PRN Reason Stop Dose Admin Acetaminophen 650 mg 11/25/20 18:37 Acetaminophen 325 Mg Tab PO Q4H PRN Pain MILD(1-3)/Fever >100.5/PADILLA Albuterol 2.5 mg 11/25/20 18:37 Albuterol 2.5 Mg/3 Ml Nebu IH Q4HRT PRN Shortness Of Breath Ascorbic Acid 500 mg 11/25/20 22:00 11/29/20 09:52 Ascorbic Acid 500 Mg Tab PO 500 mg BID KATHRYN Administration Cholecalciferol 1,000 unit 11/25/20 21:00 11/29/20 09:52 Cholecalciferol (Vit D3) 1000 Unit (25 Mcg) Tab PO 1,000 unit QDAY KATHRYN Administration Dextrose 0 ml 11/25/20 20:50 Dextrose 50% In Water (25gm) 50 Ml Syringe IV Q30MIN PRN Hypoglycemia Protocol Famotidine 10 mg 11/25/20 22:00 11/29/20 09:52 Famotidine 10 Mg Tab PO 10 mg BID KATHRYN Administration Heparin Sodium (Porcine) 5,000 unit 11/25/20 22:00 11/29/20 09:52 Heparin 5,000 Unit/1 Ml Vial SUB-Q 5,000 unit Q12HR KATHRYN Administration Hydromorphone HCl 0.5 mg 11/25/20 18:37 Hydromorphone 1 Mg/1 Ml Inj IV Q23H PRN Pain , Severe (7-10) Hydromorphone HCl 0.25 mg 11/25/20 18:40 Hydromorphone 1 Mg/1 Ml Inj IV Q4H PRN Pain, Moderate (4-6) REMDESIVIR 100 mg/ Sodium 250 mls @ 500 mls/hr 11/30/20 21:00 Chloride IV 12/03/20 21:29 Q24HR@2100 KATHRYN Insulin Human Isoph/Insulin Regular 30 unit 11/29/20 17:00 Insulin Nph/Regular 70/30 Inj SUB-Q BIDDIAB KATHRYN Insulin Human Lispro 0 unit 11/28/20 22:00 11/29/20 09:51 Insulin Lispro 100 Unit/Ml SUB-Q 6 unit ACHS KATRHYN Administration Protocol Lisinopril 20 mg 11/26/20 10:00 11/29/20 09:58 Lisinopril 10 Mg Tab PO 20 mg DAILY KATHRYN Administration Methylprednisolone Sodium Succinate 40 mg 11/25/20 22:00 11/29/20 05:53 Methylprednisolone Sod Succinate 40 Mg/1 Ml Inj IV 40 mg Q8HR KATHRYN Administration Ondansetron HCl 4 mg 11/25/20 18:37 11/28/20 23:23 Ondansetron 4 Mg/2 Ml Inj IV 4 mg Q8H PRN Administration Nausea And Vomiting Oxycodone/Acetaminophen 1 tab 11/25/20 18:37 11/27/20 22:39 Oxycodone /Acetaminophen 5-325mg Tab PO 1 tab Q16H PRN Administration Pain, Moderate (4-6) Sodium Chloride 10 ml 11/25/20 22:00 11/29/20 09:52 Sodium Chloride 0.9% 10 Ml Flush Syringe IV 10 ml BID KATHRYN Administration Sodium Chloride 10 ml 11/25/20 18:37 Sodium Chloride 0.9% 10 Ml Flush Syringe IV PRN PRN LINE FLUSH Sodium Chloride 10 ml 11/25/20 18:50 Sodium Chloride 0.9% 10 Ml Flush Syringe IV PRN PRN LINE FLUSH Sodium Chloride 50 ml 11/29/20 10:00 Sodium Chloride 0.9% 50 Ml Ivpb IV 12/03/20 21:01 Q24HR@2100 KATHRYN Tramadol HCl 50 mg 11/25/20 18:50 Tramadol 50 Mg Tab PO Q6H PRN Pain, Moderate (4-6) Zinc Sulfate 220 mg 11/25/20 22:00 11/29/20 09:52 Zinc Sulfate 220 Mg Cap PO 220 mg BID KATHRYN Administration Nutrition/Malnutrition Assess - Dietary Evaluation Nutrition/Malnutrition Findings: Nutrition Notes Start: 11/28/20 11:24 Freq: Status: Active Protocol: Document 11/28/20 11:24 GÉNESIS (Rec: 11/28/20 12:12 [email or web address] [id number]) Nutrition Notes Need for Assessment generated from: MD Order Initial or Follow up Assessment Other Pertinent Diagnosis Chest pain, possible COVID. ( Hx T2DM, HTN, RA) Current Diet NPO, will start Cardiac Diet at dinner 11/28 Labs/Tests 11/28: CO2 20, Glu 287. Pertinent Medications Reviewed. VitC, Vit D3, Zn. Height 5 ft 2 in Weight 63 kg [place] Body Weight (kg) 50.00 BMI 25.4 Weight Status Appropriate Burn Absent Trauma Absent GI Symptoms None Food Allergy No Skin Integrity/Comment N/A Current % PO Other Minimum of two criteria No physical signs of malnutrition #1 Nutrition Diagnosis Inadequate energy intake Comments: Pt is currently on NPO Etiology Pt admited to ER with Signs of COVID and chest pain As Evidenced by Signs and Symptoms As per Progress Notes, Pt experienced difficulty to breath Is patient on ventilator? No Is Patient Ambulatory and/or Out of Bed Yes REE-([place]. Jeor-ambulatory/OOB) [ 1479.725 NUTR.MSJOOB] Kcal/Kg value to use for calculation 25 Approximate Energy Requirements Using 1575 kcal/Kg Calculation Used for Recommendations Kcal/kg Additional Notes Protein: 1.0-1.2 g/Kg/day; 50- 60g/day; 200-240 Kcal/day ( from IBW) Fluids: 1.0 ml/Kcal or as per MD. Nutrition Intervention Change Diet Order: Proceed to Cardiac Diet. Goal #1 Reach and maintain acceptable chemistry lab values during LOS Goal #2 Maintain Body Weight within +/ -3% of actual BWt during LOS. Follow-Up By: 12/05/20 Additional Comments Continue to monitor % of PO meals intake and BM.
--- NOTE | 2020-11-29 13:13 | Progress Note ---
Assessment and Plan Cultures: COVID positive A/P: 65 YO Female with HTN, HLD, OA, DM, RA, Fibromyalgia admitted with COVID #COVID-19 pneumonia: Patient presented with a week of symptoms, chest x-ray with diffuse bilateral infiltrates, admission O2 sats on room air. Inflammatory markers elevated #Acute hypoxemic respiratory failure: Likely secondary to COVID-19 infection. Currently on 2L NC #RA: not currently on immunosuppressant Recs: -Steroids per primary for 10 days -Remdesivir 200 mg IV q day x 1 followed by 100 mg IV q day x 4 days -Obtain q48-72h inflammatory markers - ferritin, Ddimer, CRP, LDH -Stopped antibiotics due to normal procalitonin. -Anticoagulation per hospital protocol -Proning as able Thank you for the consult, we will continue to follow. Geoff Villarreal MD [facility] ([facility]) O: [phone] F: [phone] Subjective Date of service: 11/29/20 Interval history: Afebrile, white count 12.5 which is increased from previous. Currently on 2 L nasal cannula. Objective - Exam Narrative Exam: Physical exam deferred to reduce risk of transmission of COVID-19. Please refer to primary team's note. - Constitutional Vitals: Vital Signs Temp Pulse Resp BP Pulse Ox 99.1 F 75 22 169/89 96 11/29/20 11:28 11/29/20 11:28 11/29/20 11:28 11/29/20 11:28 11/29/20 11:28 Temperature -Last 24 Hours Temperature 99.1 F Temperature 98.8 F Temperature 99.0 F - Labs CBC & Chem 7: 11/29/20 04:28 11/29/20 04:28 Labs: Abnormal lab results 11/28/20 11/28/20 11/29/20 Range/Units 17:40 22:56 04:28 WBC 12.5 H (4.5-11.0) K/mm3 MCV 70 L (79-97) fl MCH 23 L (28-32) pg Seg Neuts % (Manual) 86.0 H (40.0-70.0) % Lymphocytes % (Manual) 11.0 L (13.4-35.0) % Seg Neutrophils # Man 10.8 H (1.8-7.7) K/mm3 Potassium (3.6-5.0) mmol/L Creatinine (0.6-1.2) mg/dL Glucose (65-100) mg/dL POC Glucose 232 H 340 H (70-105) mg/dL Hemoglobin A1c (4-6) % Calcium (8.4-10.2) mg/dL 11/29/20 11/29/20 11/29/20 Range/Units 04:28 04:28 07:29 WBC (4.5-11.0) K/mm3 MCV (79-97) fl MCH (28-32) pg Seg Neuts % (Manual) (40.0-70.0) % Lymphocytes % (Manual) (13.4-35.0) % Seg Neutrophils # Man (1.8-7.7) K/mm3 Potassium 3.5 L (3.6-5.0) mmol/L Creatinine 0.5 L (0.6-1.2) mg/dL Glucose 269 H (65-100) mg/dL POC Glucose 291 H (70-105) mg/dL Hemoglobin A1c 10.1 H (4-6) % Calcium 8.1 L (8.4-10.2) mg/dL 11/29/20 Range/Units 11:12 WBC (4.5-11.0) K/mm3 MCV (79-97) fl MCH (28-32) pg Seg Neuts % (Manual) (40.0-70.0) % Lymphocytes % (Manual) (13.4-35.0) % Seg Neutrophils # Man (1.8-7.7) K/mm3 Potassium (3.6-5.0) mmol/L Creatinine (0.6-1.2) mg/dL Glucose (65-100) mg/dL POC Glucose 415 H (70-105) mg/dL Hemoglobin A1c (4-6) % Calcium (8.4-10.2) mg/dL
[2020-11-29] MEDS: SODIUM CHLORIDE 0.9% 50 ML IVPB IV SCH (13:30)
[2020-11-29] MEDS: INSULIN NPH/REGULAR 70/30 INJ SUB-Q SCH (17:34)
[2020-11-29] MEDS ORDERED: POTASSIUM CHLORIDE ER 20 MEQ TAB PO ONE (18:00)
[2020-11-30] MEDS: methylPREDNISolone Sod Succinate 40 MG/1 ML INJ IV SCH ×3 (05:59→21:43)
[2020-11-30 06:51] LABS: Alanine Aminotransferase 20 units/L (7-56); Albumin 3.5 g/dL (3.9-5); Blood Urea Nitrogen 15 mg/dL (7-17); Calcium 8.4 mg/dL (8.4-10.2); Hemolysis Index 9
[2020-11-30 06:52] LABS: BUN/Creatinine Ratio 25
[2020-11-30] MEDS: CHOLECALCIFEROL (VIT D3) 1000 UNIT (25 mcg) TAB PO SCH (09:27)
[2020-11-30] MEDS: ZINC SULFATE 220 MG CAP PO SCH ×2 (09:27→21:45)
[2020-11-30] MEDS: HEPARIN 5,000 UNIT/1 ML VIAL SUB-Q SCH ×2 (09:27→21:41)
[2020-11-30] MEDS: FAMOTIDINE 10 MG TAB PO SCH ×2 (09:27→21:43)
[2020-11-30] MEDS: ASCORBIC ACID 500 MG TAB PO SCH ×2 (09:27→21:43)
[2020-11-30] MEDS: INSULIN NPH/REGULAR 70/30 INJ SUB-Q SCH ×2 (09:28→17:38)
[2020-11-30] MEDS: INSULIN LISPRO 100 UNIT/ML SUB-Q SCH ×4 (09:28→23:41)
[2020-11-30] MEDS: LISINOPRIL 10 MG TAB PO SCH (09:36)
--- NOTE | 2020-11-30 11:38 | Progress Note ---
Assessment and Plan Acute Covid pneumonia Musculoskeletal type chest pain associated with cough. ECG is normal and serial troponin levels are normal. Short burst of NSVT Pt remained asymptomatic. Monitor electrolytes. Will check a magnesium Otherwise, conservative cardiac management. Subjective Date of service: 11/30/20 Interval history: Short burst of NSVT seen on telemetry monitoring. Patient remained asymptomatic. Denies chest pain, shortness of breath, and palpitations. Objective Vital Signs Temp Pulse Resp Resp BP Pulse Ox 11/30/20 09:36 77 145/92 11/30/20 05:47 97.8 F 72 18 155/79 96 11/29/20 22:00 18 11/29/20 21:20 99.6 F 84 18 150/71 89 11/29/20 20:04 93 11/29/20 20:00 18 98 11/29/20 16:45 98.1 F 70 18 161/71 96 - Physical Examination Narrative exam: Deferred due to isolation protocol. General: No Apparent Distress Neck: Positive: neck supple Cardiac: Positive: Reg Rate and Rhythm - Labs and Meds Cardiac Enzymes 11/30/20 Range/Units 05:29 AST 18 (5-40) units/L Comprehensive Metabolic Panel 11/30/20 Range/Units 05:29 Sodium 145 (137-145) mmol/L Potassium 4.3 D (3.6-5.0) mmol/L Chloride 104.0 (98-107) mmol/L Carbon Dioxide 25 (22-30) mmol/L BUN 15 (7-17) mg/dL Creatinine 0.6 (0.6-1.2) mg/dL Glucose 177 H (65-100) mg/dL Calcium 8.4 (8.4-10.2) mg/dL AST 18 (5-40) units/L ALT 20 (7-56) units/L Alkaline Phosphatase 97 (35-129) units/L Total Protein 6.6 (6.3-8.2) g/dL Albumin 3.5 L (3.9-5) g/dL
--- NOTE | 2020-11-30 11:46 | Progress Note ---
Assessment and Plan Assessment and plan: Sepsis. Present on admission. Patient meets criteria given the tachycardia, tachypnea, leukopenia and diagnosis of pneumonia. Acute hypoxemic respiratory failure. Bilateral pneumonia. COVID-19 pneumonia. Fibromyalgia. Rheumatoid arthritis. 11/26/2020. Patient with suspected COVID-19 pneumonia. We will follow-up Covid PCR and procalcitonin level. Continue antibiotics of ceftriaxone and azithro mycin for now. Consult ID. Continue Solu-Medrol 40 mg IV every 8 hours and consider transitioning to dexamethasone. Check and trend inflammatory markers. 11/27/2020. Covid PCR positive on 11/26. Follow-up procalcitonin level. Continue IV antibiotics and IV steroid. ID consultation pending. Continue to trend inflammatory markers. 11/28/2020. Procalcitonin level is low. Therefore, we will anticipate discontinuing antibiotics today. Await ID consultation. Continue IV steroids. Exercise pulse oximetry prior to discharge 11/29/2020 patient with Covid-19. Doing better. She is on Oxygen at 2 l/min. She still c/o shortness of breath on exertion. Likely dc home tomorrow since ambulatory Oxygen sat 92% 11/30/20 Patient with Covid-19 pneumonia with acute resp failure. She still c/o shortness of breath on exertion. Yesterday had 5 beats of vtach but was asymptomatic. Re-consulted Cardiology to evaluate. Likely dc home tomorrow if no more vtach. her ambulatory pulse ox on room air was 92% so may not need Oxygen on discharge. History Interval history: Still feels short of breath on exertion had 5 beats vtach yesterday Hospitalist Physical - Physical exam Narrative exam: Gen: Not in acute distress, lying in bed, On Oxygen by ND HEENT: Normocephalic, atraumatic Lungs: Bilateral crackles, no wheeze Heart: S1 and S2 reg, no murmurs, rubs or gallop Abd:soft, non-tender, non distended, normal bowel sounds Ext: No edema, clubbing or cyanosis Neuro: Awake, alert, oriented X 3, moves all extremities - Constitutional Vitals: Temp Pulse Resp BP Pulse Ox 97.8 F 77 18 145/92 96 11/30/20 05:47 11/30/20 09:36 11/30/20 05:47 11/30/20 09:36 11/30/20 05:47 General appearance: Present: no acute distress HEART Score - HEART Score EKG: Normal Age: 45-65 Risk factors: > 3 risk factors or hx of atherosclerotic disease Troponin: Troponin T < 0.010 ng/mL (0.00-0.029) 11/26/20 01:01 Troponin: < normal limit Results - Labs CBC & Chem 7: 11/29/20 04:28 11/30/20 05:29 Labs: Laboratory Last Values WBC 12.5 K/mm3 (4.5-11.0) H 11/29/20 04:28 RBC 4.73 M/mm3 (3.65-5.03) 11/29/20 04:28 Hgb 11.0 gm/dl (10.1-14.3) 11/29/20 04:28 Hct 33.2 % (30.3-42.9) 11/29/20 04:28 MCV 70 fl (79-97) L 11/29/20 04:28 MCH 23 pg (28-32) L 11/29/20 04:28 MCHC 33 % (30-34) 11/29/20 04:28 RDW 13.6 % (13.2-15.2) 11/29/20 04:28 Plt Count 273 K/mm3 (140-440) 11/29/20 04:28 Lymph % (Auto) 11.4 % (13.4-35.0) L 11/26/20 05:29 Callahan % (Auto) 2.4 % (0.0-7.3) 11/26/20 05:29 Eos % (Auto) 0.0 % (0.0-4.3) 11/26/20 05:29 Baso % (Auto) 0.3 % (0.0-1.8) 11/26/20 05:29 Lymph # (Auto) 0.4 K/mm3 (1.2-5.4) L 11/26/20 05:29 Callahan # (Auto) 0.1 K/mm3 (0.0-0.8) 11/26/20 05:29 Eos # (Auto) 0.0 K/mm3 (0.0-0.4) 11/26/20 05:29 Baso # (Auto) 0.0 K/mm3 (0.0-0.1) 11/26/20 05:29 Add Manual Diff Complete 11/29/20 04:28 Total Counted 100 11/29/20 04:28 Seg Neutrophils % Processing Technologist 11/29/20 04:28 Seg Neuts % (Manual) 86.0 % (40.0-70.0) H 11/29/20 04:28 Lymphocytes % (Manual) 11.0 % (13.4-35.0) L 11/29/20 04:28 Monocytes % (Manual) 3.0 % (0.0-7.3) 11/29/20 04:28 Nucleated RBC % Not Reportable 11/29/20 04:28 Seg Neutrophils # 3.0 K/mm3 (1.8-7.7) 11/26/20 05:29 Seg Neutrophils # Man 10.8 K/mm3 (1.8-7.7) H 11/29/20 04:28 Band Neutrophils # 0.0 K/mm3 11/29/20 04:28 Lymphocytes # (Manual) 1.4 K/mm3 (1.2-5.4) 11/29/20 04:28 Abs React Lymphs (Man) 0.0 K/mm3 11/29/20 04:28 Monocytes # (Manual) 0.4 K/mm3 (0.0-0.8) 11/29/20 04:28 Eosinophils # (Manual) 0.0 K/mm3 (0.0-0.4) 11/29/20 04:28 Basophils # (Manual) 0.0 K/mm3 (0.0-0.1) 11/29/20 04:28 Metamyelocytes # 0.0 K/mm3 11/29/20 04:28 Myelocytes # 0.0 K/mm3 11/29/20 04:28 Promyelocytes # 0.0 K/mm3 11/29/20 04:28 Blast Cells # 0.0 K/mm3 11/29/20 04:28 WBC Morphology Not Reportable 11/29/20 04:28 Hypersegmented Neuts Not Reportable 11/29/20 04:28 Hyposegmented Neuts Not Reportable 11/29/20 04:28 Hypogranular Neuts Not Reportable 11/29/20 04:28 Smudge Cells Not Reportable 11/29/20 04:28 Toxic Granulation Not Reportable 11/29/20 04:28 Toxic Vacuolation Not Reportable 11/29/20 04:28 Dohle Bodies Not Reportable 11/29/20 04:28 Pelger-Huet Anomaly Not Reportable 11/29/20 04:28 Delfin Rods Not Reportable 11/29/20 04:28 Platelet Estimate Consistent w auto 11/29/20 04:28 Clumped Platelets Not Reportable 11/29/20 04:28 Plt Clumps, EDTA Not Reportable 11/29/20 04:28 Large Platelets Not Reportable 11/29/20 04:28 Giant Platelets Not Reportable 11/29/20 04:28 Platelet Satelliting Not Reportable 11/29/20 04:28 Plt Morphology Comment Not Reportable 11/29/20 04:28 RBC Morphology Not Reportable 11/29/20 04:28 Dimorphic RBCs Not Reportable 11/29/20 04:28 Polychromasia Not Reportable 11/29/20 04:28 Hypochromasia 1+ 11/29/20 04:28 Poikilocytosis Not Reportable 11/29/20 04:28 Anisocytosis Not Reportable 11/29/20 04:28 Microcytosis Not Reportable 11/29/20 04:28 Macrocytosis Not Reportable 11/29/20 04:28 Spherocytes Not Reportable 11/29/20 04:28 Pappenheimer Bodies Not Reportable 11/29/20 04:28 Sickle Cells Not Reportable 11/29/20 04:28 Target Cells Not Reportable 11/29/20 04:28 Tear Drop Cells Not Reportable 11/29/20 04:28 Ovalocytes Not Reportable 11/29/20 04:28 Helmet Cells Not Reportable 11/29/20 04:28 [place] Bodies Not Reportable 11/29/20 04:28 [place] Rings Not Reportable 11/29/20 04:28 Cynthia Cells Not Reportable 11/29/20 04:28 Bite Cells Not Reportable 11/29/20 04:28 Crenated Cell Not Reportable 11/29/20 04:28 Elliptocytes Not Reportable 11/29/20 04:28 Acanthocytes (Spur) Not Reportable 11/29/20 04:28 Rouleaux Not Reportable 11/29/20 04:28 Hemoglobin C Crystals Not Reportable 11/29/20 04:28 Schistocytes Not Reportable 11/29/20 04:28 Malaria parasites Not Reportable 11/29/20 04:28 Charlie Bodies Not Reportable 11/29/20 04:28 Hem Pathologist Commnt No 11/29/20 04:28 D-Dimer 398.68 ng/mlDDU (0-234) H 11/26/20 08:12 Sodium 145 mmol/L (137-145) 11/30/20 05:29 Potassium 4.3 mmol/L (3.6-5.0) D 11/30/20 05:29 Chloride 104.0 mmol/L (98-107) 11/30/20 05:29 Carbon Dioxide 25 mmol/L (22-30) 11/30/20 05:29 Anion Gap 20 mmol/L 11/30/20 05:29 BUN 15 mg/dL (7-17) 11/30/20 05:29 Creatinine 0.6 mg/dL (0.6-1.2) 11/30/20 05:29 Estimated GFR > 60 ml/min 11/30/20 05:29 BUN/Creatinine Ratio 25 % 11/30/20 05:29 Glucose 177 mg/dL (65-100) H 11/30/20 05:29 POC Glucose 212 mg/dL (70-105) H 11/30/20 07:17 Hemoglobin A1c 10.1 % (4-6) H 11/29/20 04:28 Lactic Acid 0.80 mmol/L (0.7-2.0) 11/26/20 01:01 Calcium 8.4 mg/dL (8.4-10.2) 11/30/20 05:29 Ferritin 215.3 ng/mL (10.0-200.0) H 11/26/20 08:12 Total Bilirubin 0.30 mg/dL (0.1-1.2) 11/30/20 05:29 AST 18 units/L (5-40) 11/30/20 05:29 ALT 20 units/L (7-56) 11/30/20 05:29 Alkaline Phosphatase 97 units/L (35-129) 11/30/20 05:29 Lactate Dehydrogenase 187 units/L (91-180) H 11/26/20 08:12 Troponin T < 0.010 ng/mL (0.00-0.029) 11/26/20 01:01 C-Reactive Protein 1.90 mg/dL (0.00-1.30) H 11/26/20 08:12 Total Protein 6.6 g/dL (6.3-8.2) 11/30/20 05:29 Albumin 3.5 g/dL (3.9-5) L 11/30/20 05:29 Albumin/Globulin Ratio 1.1 % 11/30/20 05:29 Procalcitonin < 0.05 ng/mL (<0.15) 11/27/20 13:12 Urine Color Straw (Yellow) 11/25/20 16:50 Urine Turbidity Clear (Clear) 11/25/20 16:50 Urine pH 8.0 (5.0-7.0) H 11/25/20 16:50 Ur Specific [place] 1.008 (1.003-1.030) 11/25/20 16:50 Urine Protein 30 mg/dl mg/dL (Negative) 11/25/20 16:50 Urine Glucose (UA) Neg mg/dL (Negative) 11/25/20 16:50 Urine Ketones Neg mg/dL (Negative) 11/25/20 16:50 Urine Blood Neg (Negative) 11/25/20 16:50 Urine Nitrite Neg (Negative) 11/25/20 16:50 Urine Bilirubin Neg (Negative) 11/25/20 16:50 Urine Urobilinogen < 2.0 mg/dL (<2.0) 11/25/20 16:50 Ur Leukocyte Esterase Tr (Negative) 11/25/20 16:50 Urine WBC (Auto) 22.0 /HPF (0.0-6.0) H 11/25/20 16:50 Urine RBC (Auto) 2.0 /HPF (0.0-6.0) 11/25/20 16:50 U Epithel Cells (Auto) < 1.0 /HPF (0-13.0) 11/25/20 16:50 Coronavirus (PCR) Positive (Negative) A 11/26/20 Unknown Blood Type O POSITIVE 11/25/20 18:50 Antibody Screen Negative 11/25/20 18:50 Microbiology: Microbiology 11/25/20 18:46 Peripheral/Venous Blood Culture - Preliminary NO GROWTH AFTER 4 DAYS 11/25/20 18:46 Peripheral/Venous Blood Culture - Preliminary NO GROWTH AFTER 4 DAYS Rainey/IV: Voiding Method Toilet Active Medications - Current Medications Current Medications: Generic Name Dose Route Start Last Admin Trade Name Freq PRN Reason Stop Dose Admin Acetaminophen 650 mg 11/25/20 18:37 Acetaminophen 325 Mg Tab PO Q4H PRN Pain MILD(1-3)/Fever >100.5/PADILLA Albuterol 2.5 mg 11/25/20 18:37 Albuterol 2.5 Mg/3 Ml Nebu IH Q4HRT PRN Shortness Of Breath Ascorbic Acid 500 mg 11/25/20 22:00 11/30/20 09:27 Ascorbic Acid 500 Mg Tab PO 500 mg BID KATHRYN Administration Cholecalciferol 1,000 unit 11/25/20 21:00 11/30/20 09:27 Cholecalciferol (Vit D3) 1000 Unit (25 Mcg) Tab PO 1,000 unit QDAY KATHRYN Administration Dextrose 0 ml 11/25/20 20:50 Dextrose 50% In Water (25gm) 50 Ml Syringe IV Q30MIN PRN Hypoglycemia Protocol Famotidine 10 mg 11/25/20 22:00 11/30/20 09:27 Famotidine 10 Mg Tab PO 10 mg BID KATHRYN Administration Heparin Sodium (Porcine) 5,000 unit 11/25/20 22:00 11/30/20 09:27 Heparin 5,000 Unit/1 Ml Vial SUB-Q 5,000 unit Q12HR KATHRYN Administration Hydromorphone HCl 0.5 mg 11/25/20 18:37 Hydromorphone 1 Mg/1 Ml Inj IV Q23H PRN Pain , Severe (7-10) Hydromorphone HCl 0.25 mg 11/25/20 18:40 Hydromorphone 1 Mg/1 Ml Inj IV Q4H PRN Pain, Moderate (4-6) REMDESIVIR 100 mg/ Sodium 250 mls @ 500 mls/hr 11/30/20 21:00 Chloride IV 12/03/20 21:29 Q24HR@2100 KATHRYN Insulin Human Isoph/Insulin Regular 30 unit 11/29/20 17:00 11/30/20 09:28 Insulin Nph/Regular 70/30 Inj SUB-Q 30 unit BIDDIAB KATHRYN Administration Insulin Human Lispro 0 unit 11/28/20 22:00 11/30/20 09:28 Insulin Lispro 100 Unit/Ml SUB-Q 4 unit ACHS KATHRYN Administration Protocol Lisinopril 20 mg 11/26/20 10:00 11/30/20 09:36 Lisinopril 10 Mg Tab PO 20 mg DAILY KATHRYN Administration Methylprednisolone Sodium Succinate 40 mg 11/25/20 22:00 11/30/20 05:59 Methylprednisolone Sod Succinate 40 Mg/1 Ml Inj IV 40 mg Q8HR KATHRYN Administration Ondansetron HCl 4 mg 11/25/20 18:37 11/28/20 23:23 Ondansetron 4 Mg/2 Ml Inj IV 4 mg Q8H PRN Administration Nausea And Vomiting Oxycodone/Acetaminophen 1 tab 11/25/20 18:37 11/27/20 22:39 Oxycodone /Acetaminophen 5-325mg Tab PO 1 tab Q16H PRN Administration Pain, Moderate (4-6) Sodium Chloride 10 ml 11/25/20 22:00 11/30/20 09:39 Sodium Chloride 0.9% 10 Ml Flush Syringe IV 10 ml BID KATHRYN Administration Sodium Chloride 10 ml 11/25/20 18:37 Sodium Chloride 0.9% 10 Ml Flush Syringe IV PRN PRN LINE FLUSH Sodium Chloride 10 ml 11/25/20 18:50 Sodium Chloride 0.9% 10 Ml Flush Syringe IV PRN PRN LINE FLUSH Sodium Chloride 50 ml 11/29/20 10:00 11/29/20 13:30 Sodium Chloride 0.9% 50 Ml Ivpb IV 12/03/20 21:01 50 ml Q24HR@2100 KATHRYN Administration Tramadol HCl 50 mg 11/25/20 18:50 Tramadol 50 Mg Tab PO Q6H PRN Pain, Moderate (4-6) Zinc Sulfate 220 mg 11/25/20 22:00 11/30/20 09:27 Zinc Sulfate 220 Mg Cap PO 220 mg BID KATHRYN Administration Nutrition/Malnutrition Assess - Dietary Evaluation Nutrition/Malnutrition Findings: Nutrition Notes Start: 11/28/20 11:24 Freq: Status: Active Protocol: Document 11/28/20 11:24 GÉNESIS (Rec: 11/28/20 12:12 [email or web address] [id number]) Nutrition Notes Need for Assessment generated from: MD Order Initial or Follow up Assessment Other Pertinent Diagnosis Chest pain, possible COVID. ( Hx T2DM, HTN, RA) Current Diet NPO, will start Cardiac Diet at dinner 11/28 Labs/Tests 11/28: CO2 20, Glu 287. Pertinent Medications Reviewed. VitC, Vit D3, Zn. Height 5 ft 2 in Weight 63 kg [place]gil Body Weight (kg) 50.00 BMI 25.4 Weight Status Appropriate Burn Absent Trauma Absent GI Symptoms None Food Allergy No Skin Integrity/Comment N/A Current % PO Other Minimum of two criteria No physical signs of malnutrition #1 Nutrition Diagnosis Inadequate energy intake Comments: Pt is currently on NPO Etiology Pt admited to ER with Signs of COVID and chest pain As Evidenced by Signs and Symptoms As per Progress Notes, Pt experienced difficulty to breath Is patient on ventilator? No Is Patient Ambulatory and/or Out of Bed Yes REE-([place]. or-ambulatory/OOB) [ 1479.725 [id number]] Kcal/Kg value to use for calculation 25 Approximate Energy Requirements Using 1575 kcal/Kg Calculation Used for Recommendations Kcal/kg Additional Notes Protein: 1.0-1.2 g/Kg/day; 50- 60g/day; 200-240 Kcal/day ( from IBW) Fluids: 1.0 ml/Kcal or as per MD. Nutrition Intervention Change Diet Order: Proceed to Cardiac Diet. Goal #1 Reach and maintain acceptable chemistry lab values during LOS Goal #2 Maintain Body Weight within +/ -3% of actual BWt during LOS. Follow-Up By: 12/05/20 Additional Comments Continue to monitor % of PO meals intake and BM.
--- NOTE | 2020-11-30 14:11 | Progress Note ---
Assessment and Plan Cultures: COVID positive A/P: 65 YO Female with HTN, HLD, OA, DM, RA, Fibromyalgia admitted with COVID #COVID-19 pneumonia: Patient presented with a week of symptoms, chest x-ray with diffuse bilateral infiltrates, admission O2 sats on room air. Inflammatory markers elevated #Acute hypoxemic respiratory failure: Likely secondary to COVID-19 infection. Currently on 2L NC #RA: not currently on immunosuppressant Recs: -Steroids per primary for 10 days -Remdesivir 200 mg IV q day x 1 followed by 100 mg IV q day x 4 days -Obtain q48-72h inflammatory markers - ferritin, Ddimer, CRP, LDH -Stopped antibiotics due to normal procalitonin. -Anticoagulation per hospital protocol -Proning as able Thank you for the consult, we will continue to follow. Geoff Villarreal MD [facility], [place], [facility] ([facility]) O: [phone] F: [phone] Subjective Date of service: 11/30/20 Interval history: Afebrile, no acute change. Cultures remain negative. Currently on 2L NC Objective - Exam Narrative Exam: Physical exam deferred to reduce risk of transmission of COVID-19. Please refer to primary team's note. - Constitutional Vitals: Vital Signs Temp Pulse Resp BP Pulse Ox 98.4 F 73 22 174/82 94 11/30/20 11:58 11/30/20 11:58 11/30/20 11:58 11/30/20 11:58 11/30/20 11:58 Temperature -Last 24 Hours Temperature 98.4 F Temperature 97.8 F Temperature 99.6 F Temperature 98.1 F - Labs CBC & Chem 7: 11/29/20 04:28 11/30/20 05:29 Labs: Abnormal lab results 11/29/20 11/29/20 11/30/20 Range/Units 16:45 21:25 05:29 Glucose 177 H (65-100) mg/dL POC Glucose 283 H 135 H (70-105) mg/dL Magnesium (1.7-2.3) mg/dL Albumin 3.5 L (3.9-5) g/dL 11/30/20 11/30/20 11/30/20 Range/Units 05:29 06:04 07:17 Glucose (65-100) mg/dL POC Glucose 180 H 212 H (70-105) mg/dL Magnesium 1.60 L (1.7-2.3) mg/dL Albumin (3.9-5) g/dL 11/30/20 Range/Units 11:56 Glucose (65-100) mg/dL POC Glucose 322 H (70-105) mg/dL Magnesium (1.7-2.3) mg/dL Albumin (3.9-5) g/dL
[2020-11-30] MEDS ORDERED: MAGNESIUM SULFATE 2 GM/50 ML BAG IV ONE (17:00)
[2020-11-30] MEDS: REMDESIVIR 100 MG in SODIUM CHLORIDE 0.9% 250ML 250 ML IV SCH (21:39)
[2020-11-30] MEDS: SODIUM CHLORIDE 0.9% 50 ML IVPB IV SCH (21:40)
[2020-11-30] MEDS: amLODIPine 5 MG TAB PO SCH (23:38)
[2020-12-01 05:41] LABS: Alanine Aminotransferase 16 units/L (7-56); Albumin 3.4 g/dL (3.9-5); Blood Urea Nitrogen 15 mg/dL (7-17); Calcium 8.7 mg/dL (8.4-10.2); Hemolysis Index 5
[2020-12-01 05:43] LABS: BUN/Creatinine Ratio 38
[2020-12-01] MEDS: methylPREDNISolone Sod Succinate 40 MG/1 ML INJ IV SCH ×3 (05:57→22:49)
[2020-12-01] MEDS: INSULIN LISPRO 100 UNIT/ML SUB-Q SCH ×4 (08:17→22:50)
[2020-12-01] MEDS: INSULIN NPH/REGULAR 70/30 INJ SUB-Q SCH ×2 (08:17→16:58)
[2020-12-01] MEDS: amLODIPine 5 MG TAB PO SCH (09:27)
[2020-12-01] MEDS: HEPARIN 5,000 UNIT/1 ML VIAL SUB-Q SCH ×2 (09:27→22:50)
[2020-12-01] MEDS: LISINOPRIL 10 MG TAB PO SCH (09:28)
[2020-12-01] MEDS: FAMOTIDINE 10 MG TAB PO SCH ×2 (09:28→22:49)
[2020-12-01] MEDS: CHOLECALCIFEROL (VIT D3) 1000 UNIT (25 mcg) TAB PO SCH (09:28)
[2020-12-01] MEDS: ZINC SULFATE 220 MG CAP PO SCH ×2 (09:28→22:50)
[2020-12-01] MEDS: ASCORBIC ACID 500 MG TAB PO SCH ×2 (09:33→22:50)
--- NOTE | 2020-12-01 11:18 | Progress Note ---
Assessment and Plan - Patient Problems (1) Atypical chest pain Current Visit: Yes Status: Acute Plan to address problem: Patient admitted with acute Covid pneumonia. Constellation of symptoms included protracted coughing that was associated with musculoskeletal type chest pain. ECG is normal and serial troponin levels are normal. No further cardiac work-up is indicated for musculoskeletal chest pain. Will follow intermittently. Subjective Date of service: 12/01/20 Interval history: Patient is comfortable, no new cardiac complaints reported. Objective Vital Signs Temp Pulse Resp BP Pulse Ox 12/01/20 09:51 97 12/01/20 09:28 78 12/01/20 09:27 78 12/01/20 08:36 94 11/30/20 23:38 74 167/78 11/30/20 22:33 61 18 162/76 96 11/30/20 22:00 96 11/30/20 21:52 74 167/78 95 11/30/20 20:00 20 97 11/30/20 17:10 98.3 F 72 22 183/77 94 11/30/20 11:58 98.4 F 73 22 174/82 94 - Physical Examination Narrative exam: Full physical exam is deferred due to acute Covid infection. General: No Apparent Distress HEENT: Positive: PERRL Neck: Positive: neck supple - Labs and Meds Cardiac Enzymes 12/01/20 Range/Units 05:00 AST 12 (5-40) units/L Comprehensive Metabolic Panel 12/01/20 Range/Units 05:00 Sodium 140 (137-145) mmol/L Potassium 3.9 (3.6-5.0) mmol/L Chloride 101.4 (98-107) mmol/L Carbon Dioxide 27 (22-30) mmol/L BUN 15 (7-17) mg/dL Creatinine 0.4 L (0.6-1.2) mg/dL Glucose 190 H (65-100) mg/dL Calcium 8.7 (8.4-10.2) mg/dL AST 12 (5-40) units/L ALT 16 (7-56) units/L Alkaline Phosphatase 93 (35-129) units/L Total Protein 7.0 (6.3-8.2) g/dL Albumin 3.4 L (3.9-5) g/dL
--- NOTE | 2020-12-01 12:01 | Progress Note ---
Assessment and Plan Assessment and plan: Sepsis. Present on admission. Patient meets criteria given the tachycardia, tachypnea, leukopenia and diagnosis of pneumonia. Acute hypoxemic respiratory failure. Bilateral pneumonia. COVID-19 pneumonia. Fibromyalgia. Rheumatoid arthritis. 11/26/2020. Patient with suspected COVID-19 pneumonia. We will follow-up Covid PCR and procalcitonin level. Continue antibiotics of ceftriaxone and azithr omycin for now. Consult ID. Continue Solu-Medrol 40 mg IV every 8 hours and consider transitioning to dexamethasone. Check and trend inflammatory markers. 11/27/2020. Covid PCR positive on 11/26. Follow-up procalcitonin level. Continue IV antibiotics and IV steroid. ID consultation pending. Continue to trend inflammatory markers. 11/28/2020. Procalcitonin level is low. Therefore, we will anticipate discontinuing antibiotics today. Await ID consultation. Continue IV steroids. Exercise pulse oximetry prior to discharge 11/29/2020 patient with Covid-19. Doing better. She is on Oxygen at 2 l/min. She still c/o shortness of breath on exertion. Likely dc home tomorrow since ambulatory Oxygen sat 92% 11/30/20 Patient with Covid-19 pneumonia with acute resp failure. She still c/o shortness of breath on exertion. Yesterday had 5 beats of vtach but was asymptomatic. Re-consulted Cardiology to evaluate. Likely dc home tomorrow if no more vtach. her ambulatory pulse ox on room air wa s 92% so may not need Oxygen on discharge. 12/01/2020 Blood pressure still uncontrolled. Will increase Norvasc and lisinopril. Still on 2 L oxygen by nasal cannula. Will most likely need to be discharged on home oxygen. Has been reevaluated by cardiology today and noted that patient's EKG and troponin are negative and no further cardiac work-up. History Interval history: Complains her blood pressure is well controlled. No chest pain. Still has mild shortness of breath on exertion. No fever or chills. Hospitalist Physical - Constitutional Vitals: Temp Pulse Resp BP Pulse Ox 98.3 F 78 18 167/78 97 11/30/20 17:10 12/01/20 09:28 11/30/20 22:33 11/30/20 23:38 12/01/20 09:51 General appearance: Present: no acute distress, well-nourished - EENT Eyes: Present: EOM intact - Neck Neck: Present: supple, normal ROM - Respiratory Respiratory effort: normal Respiratory: bilateral: CTA - Cardiovascular Rhythm: regular Heart Sounds: Present: S1 & S2 - Extremities Extremities: No edema - Abdominal General gastrointestinal: soft, non-tender, non-distended, normal bowel sounds - Psychiatric Psychiatric: appropriate mood/affect HEART Score - HEART Score EKG: Normal Age: 45-65 Risk factors: > 3 risk factors or hx of atherosclerotic disease Troponin: Troponin T < 0.010 ng/mL (0.00-0.029) 11/26/20 01:01 Troponin: < normal limit Results - Labs CBC & Chem 7: 11/29/20 04:28 12/01/20 05:00 Labs: Laboratory Last Values WBC 12.5 K/mm3 (4.5-11.0) H 11/29/20 04:28 RBC 4.73 M/mm3 (3.65-5.03) 11/29/20 04:28 Hgb 11.0 gm/dl (10.1-14.3) 11/29/20 04:28 Hct 33.2 % (30.3-42.9) 11/29/20 04:28 MCV 70 fl (79-97) L 11/29/20 04:28 MCH 23 pg (28-32) L 11/29/20 04:28 MCHC 33 % (30-34) 11/29/20 04:28 RDW 13.6 % (13.2-15.2) 11/29/20 04:28 Plt Count 273 K/mm3 (140-440) 11/29/20 04:28 Lymph % (Auto) 11.4 % (13.4-35.0) L 11/26/20 05:29 [place] % (Auto) 2.4 % (0.0-7.3) 11/26/20 05:29 Eos % (Auto) 0.0 % (0.0-4.3) 11/26/20 05:29 Baso % (Auto) 0.3 % (0.0-1.8) 11/26/20 05:29 Lymph # (Auto) 0.4 K/mm3 (1.2-5.4) L 11/26/20 05:29 [place] # (Auto) 0.1 K/mm3 (0.0-0.8) 11/26/20 05:29 Eos # (Auto) 0.0 K/mm3 (0.0-0.4) 11/26/20 05:29 Baso # (Auto) 0.0 K/mm3 (0.0-0.1) 11/26/20 05:29 Add Manual Diff Complete 11/29/20 04:28 Total Counted 100 11/29/20 04:28 Seg Neutrophils % [place] 11/29/20 04:28 Seg Neuts % (Manual) 86.0 % (40.0-70.0) H 11/29/20 04:28 Lymphocytes % (Manual) 11.0 % (13.4-35.0) L 11/29/20 04:28 Monocytes % (Manual) 3.0 % (0.0-7.3) 11/29/20 04:28 Nucleated RBC % Not Reportable 11/29/20 04:28 Seg Neutrophils # 3.0 K/mm3 (1.8-7.7) 11/26/20 05:29 Seg Neutrophils # Man 10.8 K/mm3 (1.8-7.7) H 11/29/20 04:28 Band Neutrophils # 0.0 K/mm3 11/29/20 04:28 Lymphocytes # (Manual) 1.4 K/mm3 (1.2-5.4) 11/29/20 04:28 Abs React Lymphs (Man) 0.0 K/mm3 11/29/20 04:28 Monocytes # (Manual) 0.4 K/mm3 (0.0-0.8) 11/29/20 04:28 Eosinophils # (Manual) 0.0 K/mm3 (0.0-0.4) 11/29/20 04:28 Basophils # (Manual) 0.0 K/mm3 (0.0-0.1) 11/29/20 04:28 Metamyelocytes # 0.0 K/mm3 11/29/20 04:28 Myelocytes # 0.0 K/mm3 11/29/20 04:28 Promyelocytes # 0.0 K/mm3 11/29/20 04:28 Blast Cells # 0.0 K/mm3 11/29/20 04:28 WBC Morphology Not Reportable 11/29/20 04:28 Hypersegmented Neuts Not Reportable 11/29/20 04:28 Hyposegmented Neuts Not Reportable 11/29/20 04:28 Hypogranular Neuts Not Reportable 11/29/20 04:28 Smudge Cells Not Reportable 11/29/20 04:28 Toxic Granulation Not Reportable 11/29/20 04:28 Toxic Vacuolation Not Reportable 11/29/20 04:28 Dohle Bodies Not Reportable 11/29/20 04:28 Pelger-Huet Anomaly Not Reportable 11/29/20 04:28 Delfin Rods Not Reportable 11/29/20 04:28 Platelet Estimate Consistent w auto 11/29/20 04:28 Clumped Platelets Not Reportable 11/29/20 04:28 Plt Clumps, EDTA Not Reportable 11/29/20 04:28 Large Platelets Not Reportable 11/29/20 04:28 Giant Platelets Not Reportable 11/29/20 04:28 Platelet Satelliting Not Reportable 11/29/20 04:28 Plt Morphology Comment Not Reportable 11/29/20 04:28 RBC Morphology Not Reportable 11/29/20 04:28 Dimorphic RBCs Not Reportable 11/29/20 04:28 Polychromasia Not Reportable 11/29/20 04:28 Hypochromasia 1+ 11/29/20 04:28 Poikilocytosis Not Reportable 11/29/20 04:28 Anisocytosis Not Reportable 11/29/20 04:28 Microcytosis Not Reportable 11/29/20 04:28 Macrocytosis Not Reportable 11/29/20 04:28 Spherocytes Not Reportable 11/29/20 04:28 Pappenheimer Bodies Not Reportable 11/29/20 04:28 Sickle Cells Not Reportable 11/29/20 04:28 Target Cells Not Reportable 11/29/20 04:28 Tear Drop Cells Not Reportable 11/29/20 04:28 Ovalocytes Not Reportable 11/29/20 04:28 Helmet Cells Not Reportable 11/29/20 04:28 Capps-Davey Bodies Not Reportable 11/29/20 04:28 [place] Rings Not Reportable 11/29/20 04:28 [place] Cells Not Reportable 11/29/20 04:28 Bite Cells Not Reportable 11/29/20 04:28 Crenated Cell Not Reportable 11/29/20 04:28 Elliptocytes Not Reportable 11/29/20 04:28 Acanthocytes (Spur) Not Reportable 11/29/20 04:28 Rouleaux Not Reportable 11/29/20 04:28 Hemoglobin C Crystals Not Reportable 11/29/20 04:28 Schistocytes Not Reportable 11/29/20 04:28 Malaria parasites Not Reportable 11/29/20 04:28 Charlie Bodies Not Reportable 11/29/20 04:28 Hem Pathologist Commnt No 11/29/20 04:28 D-Dimer 398.68 ng/mlDDU (0-234) H 11/26/20 08:12 Sodium 140 mmol/L (137-145) 12/01/20 05:00 Potassium 3.9 mmol/L (3.6-5.0) 12/01/20 05:00 Chloride 101.4 mmol/L (98-107) 12/01/20 05:00 Carbon Dioxide 27 mmol/L (22-30) 12/01/20 05:00 Anion Gap 16 mmol/L 12/01/20 05:00 BUN 15 mg/dL (7-17) 12/01/20 05:00 Creatinine 0.4 mg/dL (0.6-1.2) L 12/01/20 05:00 Estimated GFR > 60 ml/min 12/01/20 05:00 BUN/Creatinine Ratio 38 % 12/01/20 05:00 Glucose 190 mg/dL (65-100) H 12/01/20 05:00 POC Glucose 345 mg/dL (70-105) H 12/01/20 11:10 Hemoglobin A1c 10.1 % (4-6) H 11/29/20 04:28 Lactic Acid 0.80 mmol/L (0.7-2.0) 11/26/20 01:01 Calcium 8.7 mg/dL (8.4-10.2) 12/01/20 05:00 Magnesium 2.00 mg/dL (1.7-2.3) 12/01/20 04:46 Ferritin 215.3 ng/mL (10.0-200.0) H 11/26/20 08:12 Total Bilirubin 0.20 mg/dL (0.1-1.2) 12/01/20 05:00 AST 12 units/L (5-40) 12/01/20 05:00 ALT 16 units/L (7-56) 12/01/20 05:00 Alkaline Phosphatase 93 units/L (35-129) 12/01/20 05:00 Lactate Dehydrogenase 187 units/L (91-180) H 11/26/20 08:12 Troponin T < 0.010 ng/mL (0.00-0.029) 11/26/20 01:01 C-Reactive Protein 1.90 mg/dL (0.00-1.30) H 11/26/20 08:12 Total Protein 7.0 g/dL (6.3-8.2) 12/01/20 05:00 Albumin 3.4 g/dL (3.9-5) L 12/01/20 05:00 Albumin/Globulin Ratio 0.9 % 12/01/20 05:00 Procalcitonin < 0.05 ng/mL (<0.15) 11/27/20 13:12 TSH 0.306 mlU/mL (0.270-4.200) 11/30/20 05:29 Urine Color Straw (Yellow) 11/25/20 16:50 Urine Turbidity Clear (Clear) 11/25/20 16:50 Urine pH 8.0 (5.0-7.0) H 11/25/20 16:50 Ur Specific [place] 1.008 (1.003-1.030) 11/25/20 16:50 Urine Protein 30 mg/dl mg/dL (Negative) 11/25/20 16:50 Urine Glucose (UA) Neg mg/dL (Negative) 11/25/20 16:50 Urine Ketones Neg mg/dL (Negative) 11/25/20 16:50 Urine Blood Neg (Negative) 11/25/20 16:50 Urine Nitrite Neg (Negative) 11/25/20 16:50 Urine Bilirubin Neg (Negative) 11/25/20 16:50 Urine Urobilinogen < 2.0 mg/dL (<2.0) 11/25/20 16:50 Ur Leukocyte Esterase Tr (Negative) 11/25/20 16:50 Urine WBC (Auto) 22.0 /HPF (0.0-6.0) H 11/25/20 16:50 Urine RBC (Auto) 2.0 /HPF (0.0-6.0) 11/25/20 16:50 U Epithel Cells (Auto) < 1.0 /HPF (0-13.0) 11/25/20 16:50 Coronavirus (PCR) Positive (Negative) A 11/26/20 Unknown Blood Type O POSITIVE 11/25/20 18:50 Antibody Screen Negative 11/25/20 18:50 Microbiology: Microbiology 11/25/20 18:46 Peripheral/Venous Blood Culture - Final NO GROWTH AFTER 5 DAYS 11/25/20 18:46 Peripheral/Venous Blood Culture - Final NO GROWTH AFTER 5 DAYS Rainey/IV: Voiding Method Toilet Active Medications - Current Medications Current Medications: Generic Name Dose Route Start Last Admin Trade Name Freq PRN Reason Stop Dose Admin Acetaminophen 650 mg 11/25/20 18:37 Acetaminophen 325 Mg Tab PO Q4H PRN Pain MILD(1-3)/Fever >100.5/PADILLA Albuterol 2.5 mg 11/25/20 18:37 Albuterol 2.5 Mg/3 Ml Nebu IH Q4HRT PRN Shortness Of Breath Amlodipine Besylate 5 mg 11/30/20 22:00 12/01/20 09:27 Amlodipine 5 Mg Tab PO 5 mg QDAY KATHRYN Administration Ascorbic Acid 500 mg 11/25/20 22:00 12/01/20 09:33 Ascorbic Acid 500 Mg Tab PO 500 mg BID KATHRYN Administration Cholecalciferol 1,000 unit 11/25/20 21:00 12/01/20 09:28 Cholecalciferol (Vit D3) 1000 Unit (25 Mcg) Tab PO 1,000 unit QDAY KATHRYN Administration Dextrose 0 ml 11/25/20 20:50 Dextrose 50% In Water (25gm) 50 Ml Syringe IV Q30MIN PRN Hypoglycemia Protocol Famotidine 10 mg 11/25/20 22:00 12/01/20 09:28 Famotidine 10 Mg Tab PO 10 mg BID KATHRYN Administration Heparin Sodium (Porcine) 5,000 unit 11/25/20 22:00 12/01/20 09:27 Heparin 5,000 Unit/1 Ml Vial SUB-Q 5,000 unit Q12HR KATHRYN Administration Hydromorphone HCl 0.5 mg 11/25/20 18:37 Hydromorphone 1 Mg/1 Ml Inj IV Q23H PRN Pain , Severe (7-10) Hydromorphone HCl 0.25 mg 11/25/20 18:40 Hydromorphone 1 Mg/1 Ml Inj IV Q4H PRN Pain, Moderate (4-6) REMDESIVIR 100 mg/ Sodium 250 mls @ 500 mls/hr 11/30/20 21:00 11/30/20 23:45 Chloride IV 12/03/20 21:29 Infused Q24HR@2100 KATHRYN Infusion Insulin Human Isoph/Insulin Regular 30 unit 11/29/20 17:00 12/01/20 08:17 Insulin Nph/Regular 70/30 Inj SUB-Q 30 unit BIDDIAB KATHRYN Administration Insulin Human Lispro 0 unit 11/28/20 22:00 12/01/20 08:17 Insulin Lispro 100 Unit/Ml SUB-Q 4 unit ACHS KATHRYN Administration Protocol Lisinopril 20 mg 11/26/20 10:00 12/01/20 09:28 Lisinopril 10 Mg Tab PO 20 mg DAILY KATHRYN Administration Methylprednisolone Sodium Succinate 40 mg 11/25/20 22:00 12/01/20 05:57 Methylprednisolone Sod Succinate 40 Mg/1 Ml Inj IV 40 mg Q8HR KATHRYN Administration Ondansetron HCl 4 mg 11/25/20 18:37 11/28/20 23:23 Ondansetron 4 Mg/2 Ml Inj IV 4 mg Q8H PRN Administration Nausea And Vomiting Oxycodone/Acetaminophen 1 tab 11/25/20 18:37 11/27/20 22:39 Oxycodone /Acetaminophen 5-325mg Tab PO 1 tab Q16H PRN Administration Pain, Moderate (4-6) Sodium Chloride 10 ml 11/25/20 22:00 12/01/20 09:28 Sodium Chloride 0.9% 10 Ml Flush Syringe IV 10 ml BID KATHRYN Administration Sodium Chloride 10 ml 11/25/20 18:37 Sodium Chloride 0.9% 10 Ml Flush Syringe IV PRN PRN LINE FLUSH Sodium Chloride 50 ml 11/29/20 10:00 11/30/20 21:40 Sodium Chloride 0.9% 50 Ml Ivpb IV 12/03/20 21:01 50 ml Q24HR@2100 KATHRYN Administration Zinc Sulfate 220 mg 11/25/20 22:00 12/01/20 09:28 Zinc Sulfate 220 Mg Cap PO 220 mg BID KATHRYN Administration Nutrition/Malnutrition Assess - Dietary Evaluation Nutrition/Malnutrition Findings: Nutrition Notes Start: 11/28/20 11:24 Freq: Status: Active Protocol: Document 11/28/20 11:24 GÉNESIS (Rec: 11/28/20 12:12 GÉNESIS [id number]) Nutrition Notes Need for Assessment generated from: MD Order Initial or Follow up Assessment Other Pertinent Diagnosis Chest pain, possible COVID. ( Hx T2DM, HTN, RA) Current Diet NPO, will start Cardiac Diet at dinner 11/28 Labs/Tests 11/28: CO2 20, Glu 287. Pertinent Medications Reviewed. VitC, Vit D3, Zn. Height 5 ft 2 in Weight 63 kg [place] Body Weight (kg) 50.00 BMI 25.4 Weight Status Appropriate Burn Absent Trauma Absent GI Symptoms None Food Allergy No Skin Integrity/Comment N/A Current % PO Other Minimum of two criteria No physical signs of malnutrition #1 Nutrition Diagnosis Inadequate energy intake Comments: Pt is currently on NPO Etiology Pt admited to ER with Signs of COVID and chest pain As Evidenced by Signs and Symptoms As per Progress Notes, Pt experienced difficulty to breath Is patient on ventilator? No Is Patient Ambulatory and/or Out of Bed Yes REE-([place]. Jeor-ambulatory/OOB) [ 1479.725 NUTR.[id number]] Kcal/Kg value to use for calculation 25 Approximate Energy Requirements Using 1575 kcal/Kg Calculation Used for Recommendations Kcal/kg Additional Notes Protein: 1.0-1.2 g/Kg/day; 50- 60g/day; 200-240 Kcal/day ( from IBW) Fluids: 1.0 ml/Kcal or as per MD. Nutrition Intervention Change Diet Order: Proceed to Cardiac Diet. Goal #1 Reach and maintain acceptable chemistry lab values during LOS Goal #2 Maintain Body Weight within +/ -3% of actual BWt during LOS. Follow-Up By: 12/05/20 Additional Comments Continue to monitor % of PO meals intake and BM.
--- NOTE | 2020-12-01 12:16 | Progress Note ---
Assessment and Plan Cultures: COVID positive A/P: 65 YO Female with HTN, HLD, OA, DM, RA, Fibromyalgia admitted with COVID #COVID-19 pneumonia: Patient presented with a week of symptoms, chest x-ray with diffuse bilateral infiltrates, admission O2 sats on room air. Inflammatory markers elevated #Acute hypoxemic respiratory failure: Likely secondary to COVID-19 infection. Currently on 2L NC #RA: not currently on immunosuppressant Recs: -Steroids per primary for 10 days -Complete 5 days of remdesivir -Obtain q48-72h inflammatory markers - ferritin, Ddimer, CRP, LDH -Stopped antibiotics due to normal procalitonin. -Anticoagulation per hospital protocol -Proning as able -If stable OK to DC prior to completion of remdesivir. -No need for ID follow up. Thank you for the consult, we will sign off. please call with questions Geoff Villarreal MD [facility] ([facility] O: [phone] F: [phone] Subjective Date of service: 12/01/20 Interval history: Afebrile, no acute change. Currently on 2 L nasal cannula. Objective - Exam Narrative Exam: Physical exam deferred to reduce risk of transmission of COVID-19. Please refer to primary team's note. - Constitutional Vitals: Vital Signs Temp Pulse Resp BP Pulse Ox 98.3 F 78 18 167/78 97 11/30/20 17:10 12/01/20 09:28 11/30/20 22:33 11/30/20 23:38 12/01/20 09:51 Temperature -Last 24 Hours Temperature 98.3 F - Labs CBC & Chem 7: 11/29/20 04:28 12/01/20 05:00 Labs: Abnormal lab results 11/30/20 11/30/20 11/30/20 Range/Units 05:29 17:11 22:34 Creatinine (0.6-1.2) mg/dL Glucose (65-100) mg/dL POC Glucose 303 H 235 H (70-105) mg/dL Magnesium 1.60 L (1.7-2.3) mg/dL Albumin (3.9-5) g/dL 12/01/20 12/01/20 12/01/20 Range/Units 05:00 07:52 11:10 Creatinine 0.4 L (0.6-1.2) mg/dL Glucose 190 H (65-100) mg/dL POC Glucose 213 H 345 H (70-105) mg/dL Magnesium (1.7-2.3) mg/dL Albumin 3.4 L (3.9-5) g/dL
[2020-12-01] MEDS: SODIUM CHLORIDE 0.9% 50 ML IVPB IV SCH (22:49)
[2020-12-01] MEDS: REMDESIVIR 100 MG in SODIUM CHLORIDE 0.9% 250ML 250 ML IV SCH (22:49)
[2020-12-01] MEDS ORDERED: guaiFENesin DM 200/20 MG ORAL LIQD 10 ML PO PRN (23:16)
[2020-12-02] MEDS: methylPREDNISolone Sod Succinate 40 MG/1 ML INJ IV SCH ×3 (05:25→22:37)
[2020-12-02 06:38] LABS: Alanine Aminotransferase 16 units/L (7-56); Albumin 3.1 g/dL (3.9-5); Blood Urea Nitrogen 17 mg/dL (7-17); Calcium 8.6 mg/dL (8.4-10.2); Hemolysis Index 4
[2020-12-02 06:39] LABS: BUN/Creatinine Ratio 34
[2020-12-02] MEDS: INSULIN LISPRO 100 UNIT/ML SUB-Q SCH ×4 (08:29→22:51)
[2020-12-02] MEDS: INSULIN NPH/REGULAR 70/30 INJ SUB-Q SCH ×2 (08:29→17:50)
[2020-12-02] MEDS: ZINC SULFATE 220 MG CAP PO SCH ×2 (09:52→22:38)
[2020-12-02] MEDS: LISINOPRIL 10 MG TAB PO SCH (09:52)
[2020-12-02] MEDS: HEPARIN 5,000 UNIT/1 ML VIAL SUB-Q SCH ×2 (09:53→22:35)
[2020-12-02] MEDS: ASCORBIC ACID 500 MG TAB PO SCH ×2 (09:53→22:37)
[2020-12-02] MEDS: amLODIPine 5 MG TAB PO SCH (09:53)
[2020-12-02] MEDS: CHOLECALCIFEROL (VIT D3) 1000 UNIT (25 mcg) TAB PO SCH (09:53)
[2020-12-02] MEDS: FAMOTIDINE 10 MG TAB PO SCH ×2 (09:54→22:36)
--- NOTE | 2020-12-02 10:16 | Progress Note ---
Assessment and Plan Acute Covid pneumonia Musculoskeletal type chest pain associated with cough. ECG is normal and serial troponin levels are normal. Short burst of NSVT Pt remained asymptomatic. No reoccurrence thus far. Conservative cardiac management. Will follow intermittently. Subjective Date of service: 12/02/20 Interval history: No cardiac events overnight. Objective Vital Signs Temp Pulse Pulse Resp BP BP Pulse Ox 12/02/20 09:53 141/76 12/02/20 09:52 141/76 12/02/20 09:47 96 12/02/20 06:04 98.8 F 68 20 141/76 93 12/01/20 23:30 98.0 F 52 L 20 163/75 95 12/01/20 22:00 97 12/01/20 20:00 52 L 20 95 12/01/20 16:34 93 12/01/20 16:08 76 93 12/01/20 16:07 76 93 12/01/20 14:16 98.3 F 72 18 142/69 12/01/20 11:10 71 97 12/01/20 11:09 73 96 - Physical Examination Narrative exam: Deferred due to isolation protocol. General: No Apparent Distress Neck: Positive: neck supple Cardiac: Positive: Reg Rate and Rhythm - Labs and Meds Cardiac Enzymes 12/02/20 Range/Units 05:33 AST 12 (5-40) units/L Comprehensive Metabolic Panel 12/02/20 Range/Units 05:33 Sodium 139 (137-145) mmol/L Potassium 4.0 (3.6-5.0) mmol/L Chloride 102.6 (98-107) mmol/L Carbon Dioxide 26 (22-30) mmol/L BUN 17 (7-17) mg/dL Creatinine 0.5 L (0.6-1.2) mg/dL Glucose 193 H (65-100) mg/dL Calcium 8.6 (8.4-10.2) mg/dL AST 12 (5-40) units/L ALT 16 (7-56) units/L Alkaline Phosphatase 86 (35-129) units/L Total Protein 6.6 (6.3-8.2) g/dL Albumin 3.1 L (3.9-5) g/dL
--- NOTE | 2020-12-02 12:59 | Progress Note ---
Assessment and Plan Assessment and plan: Sepsis. Present on admission. Patient meets criteria given the tachycardia, tachypnea, leukopenia and diagnosis of pneumonia. Acute hypoxemic respiratory failure. Bilateral pneumonia. COVID-19 pneumonia. Fibromyalgia. Rheumatoid arthritis. 11/26/2020. Patient with suspected COVID-19 pneumonia. We will follow-up Covid PCR and procalcitonin level. Continue antibiotics of ceftriaxone and azithr omycin for now. Consult ID. Continue Solu-Medrol 40 mg IV every 8 hours and consider transitioning to dexamethasone. Check and trend inflammatory markers. 11/27/2020. Covid PCR positive on 11/26. Follow-up procalcitonin level. Continue IV antibiotics and IV steroid. ID consultation pending. Continue to trend inflammatory markers. 11/28/2020. Procalcitonin level is low. Therefore, we will anticipate discontinuing antibiotics today. Await ID consultation. Continue IV steroids. Exercise pulse oximetry prior to discharge 11/29/2020 patient with Covid-19. Doing better. She is on Oxygen at 2 l/min. She still c/o shortness of breath on exertion. Likely dc home tomorrow since ambulatory Oxygen sat 92% 11/30/20 Patient with Covid-19 pneumonia with acute resp failure. She still c/o shortness of breath on exertion. Yesterday had 5 beats of vtach but was asymptomatic. Re-consulted Cardiology to evaluate. Likely dc home tomorrow if no more vtach. her ambulatory pulse ox on room air wa s 92% so may not need Oxygen on discharge. 12/01/2020 Blood pressure still uncontrolled. Will increase Norvasc and lisinopril. Still on 2 L oxygen by nasal cannula. Will most likely need to be discharged on home oxygen. Has been reevaluated by cardiology today and noted that patient's EKG and troponin are negative and no further cardiac work-up. 12/02/2020. Start Mucinex twice daily for cough. Still on 2 L oxygen by nasal cannula. On remdesivir and steroid. For discharge home when she completes remdesivir. Blood pressure has improved. Continue current medications. History Interval history: Had dizziness and shortness of breath last night while she was walking to the restroom. Has cough. Still shortness of breath on mild exertion. Hospitalist Physical - Constitutional Vitals: Temp Pulse Resp BP Pulse Ox 98.8 F 68 20 141/76 95 12/02/20 06:04 12/02/20 06:04 12/02/20 06:04 12/02/20 09:53 12/02/20 11:21 General appearance: Present: no acute distress, well-nourished - EENT Eyes: Present: PERRL, EOM intact ENT: hearing intact - Neck Neck: Present: supple, normal ROM - Respiratory Respiratory effort: normal Respiratory: bilateral: CTA - Cardiovascular Rhythm: regular Heart Sounds: Present: S1 & S2 - Extremities Extremities: No edema - Abdominal General gastrointestinal: soft, non-tender, non-distended, normal bowel sounds - Integumentary Integumentary: Present: clear, warm, dry HEART Score - HEART Score EKG: Normal Age: 45-65 Risk factors: > 3 risk factors or hx of atherosclerotic disease Troponin: Troponin T < 0.010 ng/mL (0.00-0.029) 11/26/20 01:01 Troponin: < normal limit Results - Labs CBC & Chem 7: 11/29/20 04:28 12/02/20 05:33 Labs: Laboratory Last Values WBC 12.5 K/mm3 (4.5-11.0) H 11/29/20 04:28 RBC 4.73 M/mm3 (3.65-5.03) 11/29/20 04:28 Hgb 11.0 gm/dl (10.1-14.3) 11/29/20 04:28 Hct 33.2 % (30.3-42.9) 11/29/20 04:28 MCV 70 fl (79-97) L 11/29/20 04:28 MCH 23 pg (28-32) L 11/29/20 04:28 MCHC 33 % (30-34) 11/29/20 04:28 RDW 13.6 % (13.2-15.2) 11/29/20 04:28 Plt Count 273 K/mm3 (140-440) 11/29/20 04:28 Lymph % (Auto) 11.4 % (13.4-35.0) L 11/26/20 05:29 [place] % (Auto) 2.4 % (0.0-7.3) 11/26/20 05:29 Eos % (Auto) 0.0 % (0.0-4.3) 11/26/20 05:29 Baso % (Auto) 0.3 % (0.0-1.8) 11/26/20 05:29 Lymph # (Auto) 0.4 K/mm3 (1.2-5.4) L 11/26/20 05:29 [place] # (Auto) 0.1 K/mm3 (0.0-0.8) 11/26/20 05:29 Eos # (Auto) 0.0 K/mm3 (0.0-0.4) 11/26/20 05:29 Baso # (Auto) 0.0 K/mm3 (0.0-0.1) 11/26/20 05:29 Add Manual Diff Complete 11/29/20 04:28 Total Counted 100 11/29/20 04:28 Seg Neutrophils % Accounting Systems Manager 11/29/20 04:28 Seg Neuts % (Manual) 86.0 % (40.0-70.0) H 11/29/20 04:28 Lymphocytes % (Manual) 11.0 % (13.4-35.0) L 11/29/20 04:28 Monocytes % (Manual) 3.0 % (0.0-7.3) 11/29/20 04:28 Nucleated RBC % Not Reportable 11/29/20 04:28 Seg Neutrophils # 3.0 K/mm3 (1.8-7.7) 11/26/20 05:29 Seg Neutrophils # Man 10.8 K/mm3 (1.8-7.7) H 11/29/20 04:28 Band Neutrophils # 0.0 K/mm3 11/29/20 04:28 Lymphocytes # (Manual) 1.4 K/mm3 (1.2-5.4) 11/29/20 04:28 Abs React Lymphs (Man) 0.0 K/mm3 11/29/20 04:28 Monocytes # (Manual) 0.4 K/mm3 (0.0-0.8) 11/29/20 04:28 Eosinophils # (Manual) 0.0 K/mm3 (0.0-0.4) 11/29/20 04:28 Basophils # (Manual) 0.0 K/mm3 (0.0-0.1) 11/29/20 04:28 Metamyelocytes # 0.0 K/mm3 11/29/20 04:28 Myelocytes # 0.0 K/mm3 11/29/20 04:28 Promyelocytes # 0.0 K/mm3 11/29/20 04:28 Blast Cells # 0.0 K/mm3 11/29/20 04:28 WBC Morphology Not Reportable 11/29/20 04:28 Hypersegmented Neuts Not Reportable 11/29/20 04:28 Hyposegmented Neuts Not Reportable 11/29/20 04:28 Hypogranular Neuts Not Reportable 11/29/20 04:28 Smudge Cells Not Reportable 11/29/20 04:28 Toxic Granulation Not Reportable 11/29/20 04:28 Toxic Vacuolation Not Reportable 11/29/20 04:28 Dohle Bodies Not Reportable 11/29/20 04:28 Pelger-Huet Anomaly Not Reportable 11/29/20 04:28 Delfin Rods Not Reportable 11/29/20 04:28 Platelet Estimate Consistent w auto 11/29/20 04:28 Clumped Platelets Not Reportable 11/29/20 04:28 Plt Clumps, EDTA Not Reportable 11/29/20 04:28 Large Platelets Not Reportable 11/29/20 04:28 Giant Platelets Not Reportable 11/29/20 04:28 Platelet Satelliting Not Reportable 11/29/20 04:28 Plt Morphology Comment Not Reportable 11/29/20 04:28 RBC Morphology Not Reportable 11/29/20 04:28 Dimorphic RBCs Not Reportable 11/29/20 04:28 Polychromasia Not Reportable 11/29/20 04:28 Hypochromasia 1+ 11/29/20 04:28 Poikilocytosis Not Reportable 11/29/20 04:28 Anisocytosis Not Reportable 11/29/20 04:28 Microcytosis Not Reportable 11/29/20 04:28 Macrocytosis Not Reportable 11/29/20 04:28 Spherocytes Not Reportable 11/29/20 04:28 Pappenheimer Bodies Not Reportable 11/29/20 04:28 Sickle Cells Not Reportable 11/29/20 04:28 Target Cells Not Reportable 11/29/20 04:28 Tear Drop Cells Not Reportable 11/29/20 04:28 Ovalocytes Not Reportable 11/29/20 04:28 Helmet Cells Not Reportable 11/29/20 04:28 [place] Bodies Not Reportable 11/29/20 04:28 [place] Rings Not Reportable 11/29/20 04:28 [place] Cells Not Reportable 11/29/20 04:28 Bite Cells Not Reportable 11/29/20 04:28 Crenated Cell Not Reportable 11/29/20 04:28 Elliptocytes Not Reportable 11/29/20 04:28 Acanthocytes (Spur) Not Reportable 11/29/20 04:28 Rouleaux Not Reportable 11/29/20 04:28 Hemoglobin C Crystals Not Reportable 11/29/20 04:28 Schistocytes Not Reportable 11/29/20 04:28 Malaria parasites Not Reportable 11/29/20 04:28 Charlie Bodies Not Reportable 11/29/20 04:28 Hem Pathologist Commnt No 11/29/20 04:28 D-Dimer 398.68 ng/mlDDU (0-234) H 11/26/20 08:12 Sodium 139 mmol/L (137-145) 12/02/20 05:33 Potassium 4.0 mmol/L (3.6-5.0) 12/02/20 05:33 Chloride 102.6 mmol/L (98-107) 12/02/20 05:33 Carbon Dioxide 26 mmol/L (22-30) 12/02/20 05:33 Anion Gap 14 mmol/L 12/02/20 05:33 BUN 17 mg/dL (7-17) 12/02/20 05:33 Creatinine 0.5 mg/dL (0.6-1.2) L 12/02/20 05:33 Estimated GFR > 60 ml/min 12/02/20 05:33 BUN/Creatinine Ratio 34 % 12/02/20 05:33 Glucose 193 mg/dL (65-100) H 12/02/20 05:33 POC Glucose 224 mg/dL (70-105) H 12/02/20 12:44 Hemoglobin A1c 10.1 % (4-6) H 11/29/20 04:28 Lactic Acid 0.80 mmol/L (0.7-2.0) 11/26/20 01:01 Calcium 8.6 mg/dL (8.4-10.2) 12/02/20 05:33 Magnesium 2.00 mg/dL (1.7-2.3) 12/01/20 04:46 Ferritin 215.3 ng/mL (10.0-200.0) H 11/26/20 08:12 Total Bilirubin 0.30 mg/dL (0.1-1.2) 12/02/20 05:33 AST 12 units/L (5-40) 12/02/20 05:33 ALT 16 units/L (7-56) 12/02/20 05:33 Alkaline Phosphatase 86 units/L (35-129) 12/02/20 05:33 Lactate Dehydrogenase 187 units/L (91-180) H 11/26/20 08:12 Troponin T < 0.010 ng/mL (0.00-0.029) 11/26/20 01:01 C-Reactive Protein 1.90 mg/dL (0.00-1.30) H 11/26/20 08:12 Total Protein 6.6 g/dL (6.3-8.2) 12/02/20 05:33 Albumin 3.1 g/dL (3.9-5) L 12/02/20 05:33 Albumin/Globulin Ratio 0.9 % 12/02/20 05:33 Procalcitonin < 0.05 ng/mL (<0.15) 11/27/20 13:12 TSH 0.306 mlU/mL (0.270-4.200) 11/30/20 05:29 Urine Color Straw (Yellow) 11/25/20 16:50 Urine Turbidity Clear (Clear) 11/25/20 16:50 Urine pH 8.0 (5.0-7.0) H 11/25/20 16:50 Ur Specific [place] 1.008 (1.003-1.030) 11/25/20 16:50 Urine Protein 30 mg/dl mg/dL (Negative) 11/25/20 16:50 Urine Glucose (UA) Neg mg/dL (Negative) 11/25/20 16:50 Urine Ketones Neg mg/dL (Negative) 11/25/20 16:50 Urine Blood Neg (Negative) 11/25/20 16:50 Urine Nitrite Neg (Negative) 11/25/20 16:50 Urine Bilirubin Neg (Negative) 11/25/20 16:50 Urine Urobilinogen < 2.0 mg/dL (<2.0) 11/25/20 16:50 Ur Leukocyte Esterase Tr (Negative) 11/25/20 16:50 Urine WBC (Auto) 22.0 /HPF (0.0-6.0) H 11/25/20 16:50 Urine RBC (Auto) 2.0 /HPF (0.0-6.0) 11/25/20 16:50 U Epithel Cells (Auto) < 1.0 /HPF (0-13.0) 11/25/20 16:50 Coronavirus (PCR) Positive (Negative) A 11/26/20 Unknown Blood Type O POSITIVE 11/25/20 18:50 Antibody Screen Negative 11/25/20 18:50 Rainey/IV: Voiding Method Bedside Commode Active Medications - Current Medications Current Medications: Generic Name Dose Route Start Last Admin Trade Name Freq PRN Reason Stop Dose Admin Acetaminophen 650 mg 11/25/20 18:37 Acetaminophen 325 Mg Tab PO Q4H PRN Pain MILD(1-3)/Fever >100.5/PADILLA Albuterol 2.5 mg 11/25/20 18:37 Albuterol 2.5 Mg/3 Ml Nebu IH Q4HRT PRN Shortness Of Breath Amlodipine Besylate 10 mg 12/01/20 12:04 12/02/20 09:53 Amlodipine 5 Mg Tab PO 10 mg QDAY KATHRYN Administration Ascorbic Acid 500 mg 11/25/20 22:00 12/02/20 09:53 Ascorbic Acid 500 Mg Tab PO 500 mg BID KATHRYN Administration Cholecalciferol 1,000 unit 11/25/20 21:00 12/02/20 09:53 Cholecalciferol (Vit D3) 1000 Unit (25 Mcg) Tab PO 1,000 unit QDAY KATHRYN Administration Dextrose 0 ml 11/25/20 20:50 Dextrose 50% In Water (25gm) 50 Ml Syringe IV Q30MIN PRN Hypoglycemia Protocol Famotidine 10 mg 11/25/20 22:00 12/02/20 09:54 Famotidine 10 Mg Tab PO 10 mg BID KATHRYN Administration Guaifenesin 10 ml 12/01/20 23:16 12/02/20 05:25 Guaifenesin Dm 200/20 Mg Oral Liqd 10 Ml PO 10 ml Q4H PRN Administration Cough Guaifenesin 600 mg 12/02/20 22:00 Guaifenesin Er 600 Mg Tab PO BID KATHRYN Heparin Sodium (Porcine) 5,000 unit 11/25/20 22:00 12/02/20 09:53 Heparin 5,000 Unit/1 Ml Vial SUB-Q 5,000 unit Q12HR KATHRYN Administration Hydromorphone HCl 0.5 mg 11/25/20 18:37 Hydromorphone 1 Mg/1 Ml Inj IV Q23H PRN Pain , Severe (7-10) Hydromorphone HCl 0.25 mg 11/25/20 18:40 Hydromorphone 1 Mg/1 Ml Inj IV Q4H PRN Pain, Moderate (4-6) REMDESIVIR 100 mg/ Sodium 250 mls @ 500 mls/hr 11/30/20 21:00 12/01/20 22:49 Chloride IV 12/03/20 21:29 250 mls/hr Q24HR@2100 KATHRYN Administration Insulin Human Isoph/Insulin Regular 30 unit 11/29/20 17:00 12/02/20 08:29 Insulin Nph/Regular 70/30 Inj SUB-Q 30 unit BIDDIAB KATHRYN Administration Insulin Human Lispro 0 unit 11/28/20 22:00 12/02/20 08:29 Insulin Lispro 100 Unit/Ml SUB-Q 4 unit ACHS KATHRYN Administration Protocol Lisinopril 40 mg 12/01/20 12:04 12/02/20 09:52 Lisinopril 10 Mg Tab PO 40 mg DAILY KATHRYN Administration Methylprednisolone Sodium Succinate 40 mg 11/25/20 22:00 12/02/20 05:25 Methylprednisolone Sod Succinate 40 Mg/1 Ml Inj IV 40 mg Q8HR KATHRYN Administration Ondansetron HCl 4 mg 11/25/20 18:37 11/28/20 23:23 Ondansetron 4 Mg/2 Ml Inj IV 4 mg Q8H PRN Administration Nausea And Vomiting Oxycodone/Acetaminophen 1 tab 11/25/20 18:37 11/27/20 22:39 Oxycodone /Acetaminophen 5-325mg Tab PO 1 tab Q16H PRN Administration Pain, Moderate (4-6) Sodium Chloride 10 ml 11/25/20 22:00 12/02/20 09:54 Sodium Chloride 0.9% 10 Ml Flush Syringe IV 10 ml BID KATHRYN Administration Sodium Chloride 10 ml 11/25/20 18:37 Sodium Chloride 0.9% 10 Ml Flush Syringe IV PRN PRN LINE FLUSH Sodium Chloride 50 ml 11/29/20 10:00 12/01/20 22:49 Sodium Chloride 0.9% 50 Ml Ivpb IV 12/03/20 21:01 50 ml Q24HR@2100 KATHRYN Administration Zinc Sulfate 220 mg 11/25/20 22:00 12/02/20 09:52 Zinc Sulfate 220 Mg Cap PO 220 mg BID KATHRYN Administration Nutrition/Malnutrition Assess - Dietary Evaluation Nutrition/Malnutrition Findings: Nutrition Notes Start: 11/28/20 11:24 Freq: Status: Active Protocol: Document 11/28/20 11:24 GÉNESIS (Rec: 11/28/20 12:12 [email or web address] [email or web address]) Nutrition Notes Need for Assessment generated from: MD Order Initial or Follow up Assessment Other Pertinent Diagnosis Chest pain, possible COVID. ( Hx T2DM, HTN, RA) Current Diet NPO, will start Cardiac Diet at dinner 11/28 Labs/Tests 11/28: CO2 20, Glu 287. Pertinent Medications Reviewed. VitC, Vit D3, Zn. Height 5 ft 2 in Weight 63 kg [place] Body Weight (kg) 50.00 BMI 25.4 Weight Status Appropriate Burn Absent Trauma Absent GI Symptoms None Food Allergy No Skin Integrity/Comment N/A Current % PO Other Minimum of two criteria No physical signs of malnutrition #1 Nutrition Diagnosis Inadequate energy intake Comments: Pt is currently on NPO Etiology Pt admited to ER with Signs of COVID and chest pain As Evidenced by Signs and Symptoms As per Progress Notes, Pt experienced difficulty to breath Is patient on ventilator? No Is Patient Ambulatory and/or Out of Bed Yes [facility] [ 1479.725 [id number]] Kcal/Kg value to use for calculation 25 Approximate Energy Requirements Using 1575 kcal/Kg Calculation Used for Recommendations Kcal/kg Additional Notes Protein: 1.0-1.2 g/Kg/day; 50- 60g/day; 200-240 Kcal/day ( from IBW) Fluids: 1.0 ml/Kcal or as per MD. Nutrition Intervention Change Diet Order: Proceed to Cardiac Diet. Goal #1 Reach and maintain acceptable chemistry lab values during LOS Goal #2 Maintain Body Weight within +/ -3% of actual BWt during LOS. Follow-Up By: 12/05/20 Additional Comments Continue to monitor % of PO meals intake and BM.
[2020-12-02] MEDS: guaiFENesin ER 600 MG TAB PO SCH ×2 (13:11→22:35)
[2020-12-02] MEDS: SODIUM CHLORIDE 0.9% 50 ML IVPB IV SCH (22:34)
[2020-12-02] MEDS: REMDESIVIR 100 MG in SODIUM CHLORIDE 0.9% 250ML 250 ML IV SCH (22:47)
[2020-12-03] MEDS: methylPREDNISolone Sod Succinate 40 MG/1 ML INJ IV SCH ×3 (06:29→22:54)
[2020-12-03] MEDS: guaiFENesin ER 600 MG TAB PO SCH ×2 (09:55→22:57)
[2020-12-03] MEDS: ASCORBIC ACID 500 MG TAB PO SCH ×2 (09:55→22:57)
[2020-12-03] MEDS: FAMOTIDINE 10 MG TAB PO SCH ×2 (09:55→22:57)
[2020-12-03] MEDS: ZINC SULFATE 220 MG CAP PO SCH ×2 (09:55→22:56)
[2020-12-03] MEDS: HEPARIN 5,000 UNIT/1 ML VIAL SUB-Q SCH ×2 (09:55→22:55)
[2020-12-03] MEDS: CHOLECALCIFEROL (VIT D3) 1000 UNIT (25 mcg) TAB PO SCH (09:55)
[2020-12-03] MEDS: INSULIN LISPRO 100 UNIT/ML SUB-Q SCH ×4 (09:57→22:56)
[2020-12-03] MEDS: amLODIPine 5 MG TAB PO SCH (09:59)
[2020-12-03] MEDS: LISINOPRIL 10 MG TAB PO SCH (10:00)
--- NOTE | 2020-12-03 10:15 | Progress Note ---
Assessment and Plan - Patient Problems (1) Atypical chest pain Current Visit: Yes Status: Acute Plan to address problem: Patient admitted with acute Covid pneumonia. Constellation of symptoms included protracted coughing that was associated with musculoskeletal type chest pain. ECG is normal and serial troponin levels are normal. No further cardiac work-up is indicated for musculoskeletal chest pain. We will sign off and follow on a as needed basis. Subjective Date of service: 12/03/20 Interval history: Patient is comfortable, no cardiac complaints reported. She is anticipating to be discharged tomorrow. Objective Vital Signs Temp Pulse Pulse Resp BP Pulse Ox 12/03/20 10:00 80 135/78 12/03/20 09:59 80 135/78 12/03/20 08:15 94 12/03/20 04:13 98.3 F 68 16 138/67 89 12/02/20 23:00 78 95 12/02/20 22:32 99.0 F 73 16 141/71 95 12/02/20 21:18 96 12/02/20 16:42 98.7 F 71 24 137/70 96 12/02/20 12:51 99.0 F 80 20 142/78 92 12/02/20 11:21 95 - Physical Examination Narrative exam: Full physical exam is deferred due to acute Covid infection. General: Appears Well, No Apparent Distress
--- NOTE | 2020-12-03 11:19 | Progress Note ---
Assessment and Plan Assessment and plan: Sepsis. Present on admission. Patient meets criteria given the tachycardia, tachypnea, leukopenia and diagnosis of pneumonia. Acute hypoxemic respiratory failure. Bilateral pneumonia. COVID-19 pneumonia. Fibromyalgia. Rheumatoid arthritis. 11/26/2020. Patient with suspected COVID-19 pneumonia. We will follow-up Covid PCR and procalcitonin level. Continue antibiotics of ceftriaxone and azithr omycin for now. Consult ID. Continue Solu-Medrol 40 mg IV every 8 hours and consider transitioning to dexamethasone. Check and trend inflammatory markers. 11/27/2020. Covid PCR positive on 11/26. Follow-up procalcitonin level. Continue IV antibiotics and IV steroid. ID consultation pending. Continue to trend inflammatory markers. 11/28/2020. Procalcitonin level is low. Therefore, we will anticipate discontinuing antibiotics today. Await ID consultation. Continue IV steroids. Exercise pulse oximetry prior to discharge 11/29/2020 patient with Covid-19. Doing better. She is on Oxygen at 2 l/min. She still c/o shortness of breath on exertion. Likely dc home tomorrow since ambulatory Oxygen sat 92% 11/30/20 Patient with Covid-19 pneumonia with acute resp failure. She still c/o shortness of breath on exertion. Yesterday had 5 beats of vtach but was asymptomatic. Re-consulted Cardiology to evaluate. Likely dc home tomorrow if no more vtach. her ambulatory pulse ox on room air wa s 92% so may not need Oxygen on discharge. 12/01/2020 Blood pressure still uncontrolled. Will increase Norvasc and lisinopril. Still on 2 L oxygen by nasal cannula. Will most likely need to be discharged on home oxygen. Has been reevaluated by cardiology today and noted that patient's EKG and troponin are negative and no further cardiac work-up. 12/02/2020. Start Mucinex twice daily for cough. Still on 2 L oxygen by nasal cannula. On remdesivir and steroid. For discharge home when she completes Remdesivir. Blood pressure has improved. Continue current medications. 12/03/20 Patient with covid-19 pneumonia. Blood glucose still elevated. Increase Humulin 70/30 to 35 Units bid. Hopefully dc home tomorrow if glucose controlled. History Interval history: Still feels short of breath on exertion Elevated blood glucose Hospitalist Physical - Physical exam Narrative exam: Gen: Not in acute distress, lying in bed, On Oxygen by NC HEENT: Normocephalic, atraumatic Lungs: Bilateral crackles, no wheeze Heart: S1 and S2 reg, no murmurs, rubs or gallop Abd:soft, non-tender, non distended, normal bowel sounds Ext: No edema, clubbing or cyanosis Neuro: Awake, alert, oriented X 3, moves all extremities - Constitutional Vitals: Temp Pulse Resp BP Pulse Ox 98.3 F 80 16 135/78 94 12/03/20 04:13 12/03/20 10:00 12/03/20 04:13 12/03/20 10:00 12/03/20 08:15 General appearance: Present: no acute distress, well-nourished HEART Score - HEART Score EKG: Normal Age: 45-65 Risk factors: > 3 risk factors or hx of atherosclerotic disease Troponin: Troponin T < 0.010 ng/mL (0.00-0.029) 11/26/20 01:01 Troponin: < normal limit Results - Labs CBC & Chem 7: 11/29/20 04:28 12/02/20 05:33 Labs: Laboratory Last Values WBC 12.5 K/mm3 (4.5-11.0) H 11/29/20 04:28 RBC 4.73 M/mm3 (3.65-5.03) 11/29/20 04:28 Hgb 11.0 gm/dl (10.1-14.3) 11/29/20 04:28 Hct 33.2 % (30.3-42.9) 11/29/20 04:28 MCV 70 fl (79-97) L 11/29/20 04:28 MCH 23 pg (28-32) L 11/29/20 04:28 MCHC 33 % (30-34) 11/29/20 04:28 RDW 13.6 % (13.2-15.2) 11/29/20 04:28 Plt Count 273 K/mm3 (140-440) 11/29/20 04:28 Lymph % (Auto) 11.4 % (13.4-35.0) L 11/26/20 05:29 [place] % (Auto) 2.4 % (0.0-7.3) 11/26/20 05:29 Eos % (Auto) 0.0 % (0.0-4.3) 11/26/20 05:29 Baso % (Auto) 0.3 % (0.0-1.8) 11/26/20 05:29 Lymph # (Auto) 0.4 K/mm3 (1.2-5.4) L 11/26/20 05:29 [place] # (Auto) 0.1 K/mm3 (0.0-0.8) 11/26/20 05:29 Eos # (Auto) 0.0 K/mm3 (0.0-0.4) 11/26/20 05:29 Baso # (Auto) 0.0 K/mm3 (0.0-0.1) 11/26/20 05:29 Add Manual Diff Complete 11/29/20 04:28 Total Counted 100 11/29/20 04:28 Seg Neutrophils % Commiss[employer] Representative 11/29/20 04:28 Seg Neuts % (Manual) 86.0 % (40.0-70.0) H 11/29/20 04:28 Lymphocytes % (Manual) 11.0 % (13.4-35.0) L 11/29/20 04:28 Monocytes % (Manual) 3.0 % (0.0-7.3) 11/29/20 04:28 Nucleated RBC % Not Reportable 11/29/20 04:28 Seg Neutrophils # 3.0 K/mm3 (1.8-7.7) 11/26/20 05:29 Seg Neutrophils # Man 10.8 K/mm3 (1.8-7.7) H 11/29/20 04:28 Band Neutrophils # 0.0 K/mm3 11/29/20 04:28 Lymphocytes # (Manual) 1.4 K/mm3 (1.2-5.4) 11/29/20 04:28 Abs React Lymphs (Man) 0.0 K/mm3 11/29/20 04:28 Monocytes # (Manual) 0.4 K/mm3 (0.0-0.8) 11/29/20 04:28 Eosinophils # (Manual) 0.0 K/mm3 (0.0-0.4) 11/29/20 04:28 Basophils # (Manual) 0.0 K/mm3 (0.0-0.1) 11/29/20 04:28 Metamyelocytes # 0.0 K/mm3 11/29/20 04:28 Myelocytes # 0.0 K/mm3 11/29/20 04:28 Promyelocytes # 0.0 K/mm3 11/29/20 04:28 Blast Cells # 0.0 K/mm3 11/29/20 04:28 WBC Morphology Not Reportable 11/29/20 04:28 Hypersegmented Neuts Not Reportable 11/29/20 04:28 Hyposegmented Neuts Not Reportable 11/29/20 04:28 Hypogranular Neuts Not Reportable 11/29/20 04:28 Smudge Cells Not Reportable 11/29/20 04:28 Toxic Granulation Not Reportable 11/29/20 04:28 Toxic Vacuolation Not Reportable 11/29/20 04:28 Dohle Bodies Not Reportable 11/29/20 04:28 Pelger-Huet Anomaly Not Reportable 11/29/20 04:28 Delfin Rods Not Reportable 11/29/20 04:28 Platelet Estimate Consistent w auto 11/29/20 04:28 Clumped Platelets Not Reportable 11/29/20 04:28 Plt Clumps, EDTA Not Reportable 11/29/20 04:28 Large Platelets Not Reportable 11/29/20 04:28 Giant Platelets Not Reportable 11/29/20 04:28 Platelet Satelliting Not Reportable 11/29/20 04:28 Plt Morphology Comment Not Reportable 11/29/20 04:28 RBC Morphology Not Reportable 11/29/20 04:28 Dimorphic RBCs Not Reportable 11/29/20 04:28 Polychromasia Not Reportable 11/29/20 04:28 Hypochromasia 1+ 11/29/20 04:28 Poikilocytosis Not Reportable 11/29/20 04:28 Anisocytosis Not Reportable 11/29/20 04:28 Microcytosis Not Reportable 11/29/20 04:28 Macrocytosis Not Reportable 11/29/20 04:28 Spherocytes Not Reportable 11/29/20 04:28 Pappenheimer Bodies Not Reportable 11/29/20 04:28 Sickle Cells Not Reportable 11/29/20 04:28 Target Cells Not Reportable 11/29/20 04:28 Tear Drop Cells Not Reportable 11/29/20 04:28 Ovalocytes Not Reportable 11/29/20 04:28 Helmet Cells Not Reportable 11/29/20 04:28 [place] Bodies Not Reportable 11/29/20 04:28 Polk Rings Not Reportable 11/29/20 04:28 Bob White Cells Not Reportable 11/29/20 04:28 Bite Cells Not Reportable 11/29/20 04:28 Crenated Cell Not Reportable 11/29/20 04:28 Elliptocytes Not Reportable 11/29/20 04:28 Acanthocytes (Spur) Not Reportable 11/29/20 04:28 Rouleaux Not Reportable 11/29/20 04:28 Hemoglobin C Crystals Not Reportable 11/29/20 04:28 Schistocytes Not Reportable 11/29/20 04:28 Malaria parasites Not Reportable 11/29/20 04:28 Charlie Bodies Not Reportable 11/29/20 04:28 Hem Pathologist Commnt No 11/29/20 04:28 D-Dimer 398.68 ng/mlDDU (0-234) H 11/26/20 08:12 Sodium 139 mmol/L (137-145) 12/02/20 05:33 Potassium 4.0 mmol/L (3.6-5.0) 12/02/20 05:33 Chloride 102.6 mmol/L (98-107) 12/02/20 05:33 Carbon Dioxide 26 mmol/L (22-30) 12/02/20 05:33 Anion Gap 14 mmol/L 12/02/20 05:33 BUN 17 mg/dL (7-17) 12/02/20 05:33 Creatinine 0.5 mg/dL (0.6-1.2) L 12/02/20 05:33 Estimated GFR > 60 ml/min 12/02/20 05:33 BUN/Creatinine Ratio 34 % 12/02/20 05:33 Glucose 193 mg/dL (65-100) H 12/02/20 05:33 POC Glucose 421 mg/dL (70-105) H 12/03/20 11:10 Hemoglobin A1c 10.1 % (4-6) H 11/29/20 04:28 Lactic Acid 0.80 mmol/L (0.7-2.0) 11/26/20 01:01 Calcium 8.6 mg/dL (8.4-10.2) 12/02/20 05:33 Magnesium 2.00 mg/dL (1.7-2.3) 12/01/20 04:46 Ferritin 215.3 ng/mL (10.0-200.0) H 11/26/20 08:12 Total Bilirubin 0.30 mg/dL (0.1-1.2) 12/02/20 05:33 AST 12 units/L (5-40) 12/02/20 05:33 ALT 16 units/L (7-56) 12/02/20 05:33 Alkaline Phosphatase 86 units/L (35-129) 12/02/20 05:33 Lactate Dehydrogenase 187 units/L (91-180) H 11/26/20 08:12 Troponin T < 0.010 ng/mL (0.00-0.029) 11/26/20 01:01 C-Reactive Protein 1.90 mg/dL (0.00-1.30) H 11/26/20 08:12 Total Protein 6.6 g/dL (6.3-8.2) 12/02/20 05:33 Albumin 3.1 g/dL (3.9-5) L 12/02/20 05:33 Albumin/Globulin Ratio 0.9 % 12/02/20 05:33 Procalcitonin < 0.05 ng/mL (<0.15) 11/27/20 13:12 TSH 0.306 mlU/mL (0.270-4.200) 11/30/20 05:29 Urine Color Straw (Yellow) 11/25/20 16:50 Urine Turbidity Clear (Clear) 11/25/20 16:50 Urine pH 8.0 (5.0-7.0) H 11/25/20 16:50 Ur Specific [place] 1.008 (1.003-1.030) 11/25/20 16:50 Urine Protein 30 mg/dl mg/dL (Negative) 11/25/20 16:50 Urine Glucose (UA) Neg mg/dL (Negative) 11/25/20 16:50 Urine Ketones Neg mg/dL (Negative) 11/25/20 16:50 Urine Blood Neg (Negative) 11/25/20 16:50 Urine Nitrite Neg (Negative) 11/25/20 16:50 Urine Bilirubin Neg (Negative) 11/25/20 16:50 Urine Urobilinogen < 2.0 mg/dL (<2.0) 11/25/20 16:50 Ur Leukocyte Esterase Tr (Negative) 11/25/20 16:50 Urine WBC (Auto) 22.0 /HPF (0.0-6.0) H 11/25/20 16:50 Urine RBC (Auto) 2.0 /HPF (0.0-6.0) 11/25/20 16:50 U Epithel Cells (Auto) < 1.0 /HPF (0-13.0) 11/25/20 16:50 Coronavirus (PCR) Positive (Negative) A 11/26/20 Unknown Blood Type O POSITIVE 11/25/20 18:50 Antibody Screen Negative 11/25/20 18:50 Rainey/IV: Voiding Method Toilet Active Medications - Current Medications Current Medications: Generic Name Dose Route Start Last Admin Trade Name Freq PRN Reason Stop Dose Admin Acetaminophen 650 mg 11/25/20 18:37 Acetaminophen 325 Mg Tab PO Q4H PRN Pain MILD(1-3)/Fever >100.5/PADILLA Albuterol 2.5 mg 11/25/20 18:37 Albuterol 2.5 Mg/3 Ml Nebu IH Q4HRT PRN Shortness Of Breath Amlodipine Besylate 10 mg 12/01/20 12:04 12/03/20 09:59 Amlodipine 5 Mg Tab PO 10 mg QDAY KATHRYN Administration Ascorbic Acid 500 mg 11/25/20 22:00 12/03/20 09:55 Ascorbic Acid 500 Mg Tab PO 500 mg BID KATHRYN Administration Cholecalciferol 1,000 unit 11/25/20 21:00 12/03/20 09:55 Cholecalciferol (Vit D3) 1000 Unit (25 Mcg) Tab PO 1,000 unit QDAY KATHRYN Administration Dextrose 0 ml 11/25/20 20:50 Dextrose 50% In Water (25gm) 50 Ml Syringe IV Q30MIN PRN Hypoglycemia Protocol Famotidine 10 mg 11/25/20 22:00 12/03/20 09:55 Famotidine 10 Mg Tab PO 10 mg BID KATHRYN Administration Guaifenesin 10 ml 12/01/20 23:16 12/02/20 05:25 Guaifenesin Dm 200/20 Mg Oral Liqd 10 Ml PO 10 ml Q4H PRN Administration Cough Guaifenesin 600 mg 12/02/20 13:00 12/03/20 09:55 Guaifenesin Er 600 Mg Tab PO 600 mg BID KATHRYN Administration Heparin Sodium (Porcine) 5,000 unit 11/25/20 22:00 12/03/20 09:55 Heparin 5,000 Unit/1 Ml Vial SUB-Q 5,000 unit Q12HR KATHRYN Administration Hydromorphone HCl 0.5 mg 11/25/20 18:37 Hydromorphone 1 Mg/1 Ml Inj IV Q23H PRN Pain , Severe (7-10) Hydromorphone HCl 0.25 mg 11/25/20 18:40 Hydromorphone 1 Mg/1 Ml Inj IV Q4H PRN Pain, Moderate (4-6) REMDESIVIR 100 mg/ Sodium 250 mls @ 500 mls/hr 11/30/20 21:00 12/03/20 00:20 Chloride IV 12/03/20 21:29 Infused Q24HR@2100 [facility] Infusion Insulin Human Isoph/Insulin Regular 35 unit 12/03/20 08:30 Insulin Nph/Regular 70/30 Inj SUB-Q BIDDIAB [facility] Insulin Human Lispro 0 unit 11/28/20 22:00 12/03/20 09:57 Insulin Lispro 100 Unit/Ml SUB-Q 10 unit ACHS [facility] Administration Protocol Lisinopril 40 mg 12/01/20 12:04 12/03/20 10:00 Lisinopril 10 Mg Tab PO 40 mg DAILY [facility] Administration Methylprednisolone Sodium Succinate 40 mg 11/25/20 22:00 12/03/20 06:29 Methylprednisolone Sod Succinate 40 Mg/1 Ml Inj IV 40 mg Q8HR KATHRYN Administration Ondansetron HCl 4 mg 11/25/20 18:37 11/28/20 23:23 Ondansetron 4 Mg/2 Ml Inj IV 4 mg Q8H PRN Administration Nausea And Vomiting Oxycodone/Acetaminophen 1 tab 11/25/20 18:37 11/27/20 22:39 Oxycodone /Acetaminophen 5-325mg Tab PO 1 tab Q16H PRN Administration Pain, Moderate (4-6) Sodium Chloride 10 ml 11/25/20 22:00 12/03/20 09:58 Sodium Chloride 0.9% 10 Ml Flush Syringe IV 10 ml BID KATHRYN Administration Sodium Chloride 10 ml 11/25/20 18:37 Sodium Chloride 0.9% 10 Ml Flush Syringe IV PRN PRN LINE FLUSH Sodium Chloride 50 ml 11/29/20 10:00 12/02/20 22:34 Sodium Chloride 0.9% 50 Ml Ivpb IV 12/03/20 21:01 50 ml Q24HR@2100 KATHRYN Administration Zinc Sulfate 220 mg 11/25/20 22:00 12/03/20 09:55 Zinc Sulfate 220 Mg Cap PO 220 mg BID KATHRYN Administration Nutrition/Malnutrition Assess - Dietary Evaluation Nutrition/Malnutrition Findings: Nutrition Notes Start: 11/28/20 11:24 Freq: Status: Active Protocol: Document 11/28/20 11:24 GÉNESIS (Rec: 11/28/20 12:12 GÉNESIS [email or web address]) Nutrition Notes Need for Assessment generated from: MD Order Initial or Follow up Assessment Other Pertinent Diagnosis Chest pain, possible COVID. ( Hx T2DM, HTN, RA) Current Diet NPO, will start Cardiac Diet at dinner 11/28 Labs/Tests 11/28: CO2 20, Glu 287. Pertinent Medications Reviewed. VitC, Vit D3, Zn. Height 5 ft 2 in Weight 63 kg [place] Body Weight (kg) 50.00 BMI 25.4 Weight Status Appropriate Burn Absent Trauma Absent GI Symptoms None Food Allergy No Skin Integrity/Comment N/A Current % PO Other Minimum of two criteria No physical signs of malnutrition #1 Nutrition Diagnosis Inadequate energy intake Comments: Pt is currently on NPO Etiology Pt admited to ER with Signs of COVID and chest pain As Evidenced by Signs and Symptoms As per Progress Notes, Pt experienced difficulty to breath Is patient on ventilator? No Is Patient Ambulatory and/or Out of Bed Yes REE-([facility]-ambulatory/OOB) [ 1479.725 [id number]] Kcal/Kg value to use for calculation 25 Approximate Energy Requirements Using 1575 kcal/Kg Calculation Used for Recommendations Kcal/kg Additional Notes Protein: 1.0-1.2 g/Kg/day; 50- 60g/day; 200-240 Kcal/day ( from IBW) Fluids: 1.0 ml/Kcal or as per MD. Nutrition Intervention Change Diet Order: Proceed to Cardiac Diet. Goal #1 Reach and maintain acceptable chemistry lab values during LOS Goal #2 Maintain Body Weight within +/ -3% of actual BWt during LOS. Follow-Up By: 12/05/20 Additional Comments Continue to monitor % of PO meals intake and BM.
[2020-12-03] MEDS: INSULIN NPH/REGULAR 70/30 INJ SUB-Q SCH ×2 (14:11→17:47)
[2020-12-03] MEDS: REMDESIVIR 100 MG in SODIUM CHLORIDE 0.9% 250ML 250 ML IV SCH (22:54)
[2020-12-03] MEDS: SODIUM CHLORIDE 0.9% 50 ML IVPB IV SCH (22:54)
[2020-12-04] MEDS: methylPREDNISolone Sod Succinate 40 MG/1 ML INJ IV SCH ×2 (05:52→13:34)
[2020-12-04] MEDS: LISINOPRIL 10 MG TAB PO SCH (09:56)
[2020-12-04] MEDS: FAMOTIDINE 10 MG TAB PO SCH (09:57)
[2020-12-04] MEDS: HEPARIN 5,000 UNIT/1 ML VIAL SUB-Q SCH (09:57)
[2020-12-04] MEDS: guaiFENesin ER 600 MG TAB PO SCH (09:57)
[2020-12-04] MEDS: amLODIPine 5 MG TAB PO SCH (09:57)
[2020-12-04] MEDS: INSULIN LISPRO 100 UNIT/ML SUB-Q SCH ×3 (09:58→17:38)
[2020-12-04] MEDS: INSULIN NPH/REGULAR 70/30 INJ SUB-Q SCH ×2 (09:58→17:39)
[2020-12-04] MEDS: CHOLECALCIFEROL (VIT D3) 1000 UNIT (25 mcg) TAB PO SCH (09:58)
[2020-12-04] MEDS: ZINC SULFATE 220 MG CAP PO SCH (09:58)
[2020-12-04] MEDS: ASCORBIC ACID 500 MG TAB PO SCH (09:59)
[2020-12-04 10:06] VITALS: BP 129/76
--- NOTE | 2020-12-04 12:22 | Discharge Summary ---
Providers - Providers Date of Admission: 11/25/20 18:37 Date of discharge: 12/04/20 Attending physician: MARY JOHNSTON 11/27/20 09:13 Consult to Physician [CONS] Routine Comment: Consulting Provider: ESE MERCADO Physician Instructions: Reason For Exam: COVID Primary care physician: [employer] Hospitalization Condition: Stable Hospital course: Patient is 65 yo with hypertension, hyperlipidemia, osteoarthritis, diabetes mellitus, rheumatoid arthritis, fibromyalgia not currently taking DMARD presented to ED for evaluation. Patient complained of chest pain. Patient states that she has experienced chest pain over the past 2 weeks with worsening symptoms over the past 4 days. Patient acknowledges fever, fatigue, malaise, decreased exercise tolerance, diminished sense of smell, diminished sense of taste, dry cough. Patient knowledges chest discomfort which is worsened with palpation of the chest wall. The patient was seen and evaluated in the emergency department. Patient found to be febrile with a temperature of 101.9 F, tachycardic with a heart rate of 102. Patient found to have a pulse oximetry of 85% on room air which is consistent with acute hypoxemic respiratory failure. Patient found to have sepsis. CT scan of the chest revealed bilateral pneumonia. Patient admitted to medical floor and initiated on sepsis protocol as well as pneumonia protocol, as well as coronavirus protocol. Patient is not vaccinated against COVID-19. She was admitted. Covid-19 serology was positive. She was evaluated by ID Specialist, treated with Remdesivir. She improved and was subsequently discharged home on 12/04/20. Sepsis. Present on admission. Patient meets criteria given the tachycardia, tachypnea, leukopenia and diagnosis of pneumonia. Acute hypoxemic respiratory failure. Bilateral pneumonia. COVID-19 pneumonia. Fibromyalgia. Rheumatoid arthritis. 11/26/2020. Patient with suspected COVID-19 pneumonia. We will follow-up Covid PCR and procalcitonin level. Continue antibiotics of ceftriaxone and azithromycin for now. Consult ID. Continue Solu-Medrol 40 mg IV every 8 hours and consider transitioning to dexamethasone. Check and trend inflammatory markers. 11/27/2020. Covid PCR positive on 11/26. Follow-up procalcitonin level. Continue IV antibiotics and IV steroid. ID consultation pending. Continue to trend inflammatory markers. 11/28/2020. Procalcitonin level is low. Therefore, we will anticipate discontinuing antibiotics today. Await ID consultation. Continue IV steroids. Exercise pulse oximetry prior to discharge 11/29/2020 patient with Covid-19. Doing better. She is on Oxygen at 2 l/min. She still c/o shortness of breath on exertion. Likely dc home tomorrow since ambulatory Oxygen sat 92% 11/30/20 Patient with Covid-19 pneumonia with acute resp failure. She still c/o shortness of breath on exertion. Yesterday had 5 beats of vtach but was asymptomatic. Re-consulted Cardiology to evaluate. Likely dc home tomorrow if no more vtach. her ambulatory pulse ox on room air was 92% so may not need Oxygen on discharge. 12/01/2020 Blood pressure still uncontrolled. Will increase Norvasc and lisinopril. Still on 2 L oxygen by nasal cannula. Will most likely need to be discharged on home oxygen. Has been reevaluated by cardiology today and noted that patient's EKG and troponin are negative and no further cardiac work-up. 12/02/2020. Start Mucinex twice daily for cough. Still on 2 L oxygen by nasal cannula. On remdesivir and steroid. For discharge home when she completes Remdesivir. Blood pressure has improved. Continue current medications. 12/03/20 Patient with Covid-19 pneumonia. Blood glucose still elevated. Increase Humulin 70/30 to 35 Units bid. Hopefully dc home tomorrow if glucose controlled. 12/04/20 Patient discharged home. Disposition: 01 HOME / SELF CARE / HOMELESS Final Discharge Diagnosis (Prints w/discharge instructions): 1.Covid-19 pneumonia. 2.Acute respiratory failure. 3.Diabetes Time spent for discharge: 38 mins - Discharge Diagnoses (1) COVID-19 Status: Acute (2) Acute hypoxemic respiratory failure Status: Acute (3) Fibromyalgia Status: Acute (4) Rheumatoid arthritis Status: Acute Qualifiers: Laterality: unspecified laterality (5) Sepsis Status: Acute (6) Diabetes mellitus type 2 in nonobese Status: Acute Core Measure Documentation - Palliative Care Palliative Care/ Comfort Measures: Not Applicable - Core Measures Any of the following diagnoses?: none Exam - Constitutional Vitals: Temp Pulse Resp BP Pulse Ox 98.3 F 81 18 129/76 92 12/04/20 04:22 12/04/20 09:57 12/04/20 04:22 12/04/20 09:57 12/04/20 04:22 Plan Activity: advance as tolerated Diet: low fat, low cholesterol, low salt Plan of Treatment: 1.Follow up with PCP in 1 week 2.Continue Insulin from home. Call PCP if glucose > 300 Follow up with: PRIMARY CARE, [Primary Care Provider] - 3-5 Days Prescriptions: amLODIPine 10 mg PO DAILY #30 tab lisinopriL [Zestril TAB] 40 mg PO QDAY #30 tablet Other Discharge Orders: Glucometer (Amb) Location: None Selected
== END 2020-12-04 17:45 | disposition home or self-care (01) | DRG 871 ==
LOC: ED 13:11 → 3A 18:37
PROVIDERS: ADMIT Internal Medicine; ATTEND Internal Medicine
PROC: XW033E5 Introduction of Remdesivir Anti-infective into Peripheral Vein, Percutaneous Approach, New Technology Group 5 (ICD-10-PCS; principal; 2020-11-29)
DX: A41.9 Sepsis, unspecified organism (principal); U07.1 COVID-19; J96.01 Acute respiratory failure with hypoxia; J12.82 Pneumonia due to coronavirus disease 2019; M79.7 Fibromyalgia; M06.9 Rheumatoid arthritis, unspecified; I10 Essential (primary) hypertension; E78.5 Hyperlipidemia, unspecified; E11.9 Type 2 diabetes mellitus without complications; Z82.49 Family history of ischemic heart disease and other diseases of the circulatory system; Z79.899 Other long term (current) drug therapy; Z79.4 Long term (current) use of insulin
CPT/HCPCS: 36415; 71046; 71275; 80048; 80053; 81001; 82140; 82728; 82962; 83036; 83615; 83735; 84145; 84443; 84484; 85007; 85025; 85379; 86140; 86850; 86900; 86901; 87040; 87086; 93005; 94760; G0378; J0456; J0696; J1644; J1815; J2270; J2405; J2920; J3475; J7030; J7050; Q9967; U0003